=== PATIENT | female | born 1935 | race Caucasian/White ===

== ENCOUNTER → 2016-07-16 | Outpatient (CLI) | payer MEDICARE ==
[2016-07-16 18:37] LABS: ALT 33 U/L (9-52); AST 32 U/L (14-36); Cholesterol 177 mg/dL (<200); HDL Cholesterol 57 mg/dL (40-60); Triglycerides 104 mg/dL (<150)
== END | disposition home or self-care (01) ==
LOC: MMGSC 10:42
PROVIDERS: ATTEND Internal Medicine Interventional Cardiology
DX: E78.2 Mixed hyperlipidemia (principal)
CPT/HCPCS: 36415; 80061; 84450; 84460

== ENCOUNTER → 2016-12-23 | Outpatient (CLI) | payer MEDICARE | END | disposition home or self-care (01) | LOC: MMGSC 15:41 | PROVIDERS: ATTEND Family Medicine | DX: N39.0 Urinary tract infection, site not specified (principal) | CPT/HCPCS: 87086 ==

== ENCOUNTER → 2017-01-01 | Outpatient (CLI) | payer MEDICARE ==
--- NOTE | 2017-01-01 17:04 | XR ---
EXAMINATION TYPE: XR wrist complete LT DATE OF EXAM: 01/01/2017 COMPARISON: NONE HISTORY: Pain TECHNIQUE: 4 views FINDINGS: There is narrowing and spurring at the first carpometacarpal joint. I see no fracture nor d islocation. Metacarpals are intact. IMPRESSION: Osteoarthritis at the base of the thumb. No fracture seen.
== END | disposition home or self-care (01) ==
LOC: RADXRMAIN 16:44
PROVIDERS: ATTEND Family Medicine
DX: M19.032 Primary osteoarthritis, left wrist (principal)

== ENCOUNTER → 2017-01-08 | Outpatient (CLI) | payer MEDICARE | END | disposition home or self-care (01) | LOC: MMGSC 10:02 | PROVIDERS: ATTEND Family Medicine | DX: E03.9 Hypothyroidism, unspecified (principal) | CPT/HCPCS: 36415; 80061; 84439; 84443; 84450; 84460 ==

== ENCOUNTER → 2017-01-08 | Outpatient (CLI) | payer MEDICARE ==
[2017-01-08 19:01] LABS: ALT 33 U/L (9-52); AST 26 U/L (14-36); Cholesterol 156 mg/dL (<200); HDL Cholesterol 45 mg/dL (40-60)
== END | disposition home or self-care (01) ==
LOC: MMGSC 09:50
PROVIDERS: ATTEND Internal Medicine Interventional Cardiology
DX: E78.2 Mixed hyperlipidemia (principal)
CPT/HCPCS: 36415; 80061; 84450; 84460

== ENCOUNTER → 2017-02-27 | Outpatient (CLI) | payer MEDICARE ==
--- NOTE | 2017-02-27 12:43 | CT ---
EXAMINATION TYPE: CT ChestAbdPelvis w con DATE OF EXAM: 02/27/2017 COMPARISON: 05/08/2016 and 11/21/2014 HISTORY: lymphoma CT DLP: 1413 mGycm. Automated Exposure Control for Dose Reduction was Utilized. CONTRAST: CT scan of the thorax, abdomen and pelvis is performed with IV Contrast, patient injected with 80 mL of Visipaque 320. FINDINGS: LUNGS: Solitary right middle lobe 3 mm pulmonary nodule is present on series 4 image 32. This nodule is unchanged from the exam of 7 6:15 AM should be considered benign. Additional 1 mm right middle lob e pulmonary nodule is also visualized on the same image number and stable from the prior exam. This s hould also be considered benign. Few scattered centrilobular blebs are noted from mild centrilobular emphysema. The lungs are grossly clear, there is no concerning parenchymal mass identified. There i s no pleural effusion or pneumothorax seen. The tracheobronchial tree is patent. MEDIASTINUM: Coronary artery calcifications are incidentally noted within the left anterior descendin g and left main coronary artery. There are no greater than 1 cm hilar or mediastinal lymph nodes. N o pericardial effusion is seen. LIVER/GB: Hepatic parenchyma enhances homogeneously. Gallbladder surgically absent. PANCREAS: No significant abnormality is seen. SPLEEN: Focal wedge shaped area of hypoattenuation is seen within the posterior inferior splenic pare nchyma on series 3 image 65 of capsular retraction relating to prior infarct. The spleen is nonenlarg ed but again prominent in size measuring 12.9 cm in craniocaudal dimension. ADRENALS: No significant abnormality is seen. KIDNEYS: No significant abnormality is seen. BOWEL: Few scattered colonic diverticula are seen without pericolonic fat stranding. LYMPH NODES: Few prominent and nonenlarged lymph nodes are seen in the retroperitoneum, similar in si ze to the exam of 11/21/2014 with the largest measuring 7 mm on series 3 image 65 and the second larges t measuring 5 mm on series 3 image 79. OSSEOUS STRUCTURES: No suspicious osseous lesion. Multilevel degenerative change of the thoracolumbar spine. Degenerative changes also seen of the femoral acetabular joints. Sclerotic focus, likely bone island is again present of L3 as well as vertebral body hemangioma of L5. OTHER: Abdominal aorta is of normal course and caliber with minimal calcific atheromatous changes. IMPRESSION: 1. No evidence of adenopathy within the chest, abdomen or pelvis. Few nonenlarged retroperitoneal lym ph nodes measuring up to 7 mm in short axis are unchanged in comparison to exam of 11/21/2014. 2. Unchanged prior splenic infarct. 3. Colonic diverticulosis without evidence of diverticulitis.
== END | disposition home or self-care (01) ==
LOC: RADCTMAIN 10:32
PROVIDERS: ATTEND Internal Medicine Hematology & Oncology
DX: C85.98 Non-Hodgkin lymphoma, unspecified, lymph nodes of multiple sites (principal); K57.30 Diverticulosis of large intestine without perforation or abscess without bleeding; D73.5 Infarction of spleen; Z88.0 Allergy status to penicillin; Z88.1 Allergy status to other antibiotic agents
CPT/HCPCS: 82565; 84520; 71260; 74177; 36415; Q9967

== ENCOUNTER → 2017-03-27 | Outpatient (CLI) | payer MEDICARE ==
[2017-03-27 19:48] LABS: Basophils % (A) 1 %; CH 28.2; CHCM 32.3; Eosinophils # (A) 0.1 k/uL (0-0.7); Eosinophils % (A) 3 %; HCT 39.7 % (34.0-46.0); HDW 2.73; HGB 12.7 gm/dL (11.4-16.0); Luc # (Auto) 0.05; Luc % (Auto) 2; Lymphocytes # (A) 0.5 k/uL (1.0-4.8); Lymphocytes % (A) 16 %; MCH 28.2 pg (25.0-35.0); MCHC 32.1 g/dL (31.0-37.0); MCV 87.8 fL (80.0-100.0); Mean Platelet Volume 7.8; Monocytes # (A) 0.2 k/uL (0-1.0); Monocytes % (A) 6 %; Neutrophils # (A) 2.4 k/uL (1.3-7.7); Neutrophils % (A) 73 %; RBC 4.52 m/uL (3.80-5.40); RDW 14.6 % (11.5-15.5); WBC 3.2 k/uL (3.8-10.6); WBC (Perox) 3.42
[2017-03-27 20:42] LABS: Calcium 10.1 mg/dL (8.4-10.2); Potassium 3.7 mmol/L (3.5-5.1); Total Bilirubin 0.5 mg/dL (0.2-1.3); Total Protein 6.6 g/dL (6.3-8.2)
== END ==
LOC: MMGSC 12:14
PROVIDERS: ATTEND Family Medicine
DX: E55.9 Vitamin D deficiency, unspecified (principal); R53.83 Other fatigue; E03.9 Hypothyroidism, unspecified; R79.89 Other specified abnormal findings of blood chemistry; C85.90 Non-Hodgkin lymphoma, unspecified, unspecified site
CPT/HCPCS: 36415; 80053; 82306; 82607; 84439; 84443; 85025

== ENCOUNTER → 2017-05-16 | Outpatient (CLI) | payer MEDICARE | END | disposition home or self-care (01) | LOC: MMGSC 15:19 | PROVIDERS: ATTEND Family Medicine | DX: N39.0 Urinary tract infection, site not specified (principal) | CPT/HCPCS: 87077; 87086; 87186 ==

== ENCOUNTER → 2017-07-29 | Outpatient (CLI) | payer MEDICARE ==
[2017-07-29 18:29] LABS: Albumin 4.3 g/dL (3.5-5.0); Calcium 10.2 mg/dL (8.4-10.2); Potassium 3.7 mmol/L (3.5-5.1); Total Bilirubin 0.6 mg/dL (0.2-1.3); Total Protein 6.9 g/dL (6.3-8.2)
[2017-08-01 09:11] LABS: Hemoglobin A1C 5.8 % (4.0-6.0)
== END | disposition home or self-care (01) ==
LOC: MMGSC 09:56
PROVIDERS: ATTEND Internal Medicine Interventional Cardiology
DX: E78.2 Mixed hyperlipidemia (principal)
CPT/HCPCS: 80053; 80061

== ENCOUNTER → 2017-07-29 | Outpatient (CLI) | payer MEDICARE ==
[2017-07-29 18:43] LABS: T4, Free (Free Thyroxine) 1.61 ng/dL (0.78-2.19)
== END | disposition home or self-care (01) ==
LOC: MMGSC 09:49
PROVIDERS: ATTEND Family Medicine
DX: E03.9 Hypothyroidism, unspecified (principal)
CPT/HCPCS: 36415; 84439; 84443

== ENCOUNTER → 2017-09-25 | Day surgery (SDC) | payer MEDICARE ==
[2017-09-22 13:34] VITALS: BMI 25.0
[~2017-09-25] MED LIST: ACETAMINOPHEN TAB 325 MG TAB ONE; ACETAMINOPHEN TAB 325 MG TAB PO STA; ALPRAZolam 0.25 MG TAB PO PRN; ALPRAZolam 1 MG TAB PO SCH; ASPIRIN 325 MG TAB PO ONE; CHOLECALCIFEROL 1,000 UNIT TAB PO SCH; ESCITALOPRAM 5 MG TAB PO SCH; FENOFIBRIC ACID 135 MG PO SCH; HEPARIN SODIUM 1,000 UN/ML (10ML VL) ONE; IOPAMIDOL-370 125ML BTL INJ ONE; ISOSORBIDE MONONITRATE ER 60 MG TAB.ER.24H PO SCH; LEVOTHYROXINE 125 MCG TAB PO SCH; LIDOCAINE 2% INJ 20 MG/ML (20 ML MDV) ONE; LIDOCAINE 2% INJ 20 MG/ML SQ ONE; METOPROLOL TARTRATE 25 MG TAB PO SCH; MIDAZOLAM 2 MG/2 ML VIAL IV ONE; MIDAZOLAM 2 MG/2 ML VIAL ONE; NON-FORMULARY DRUG (Aspirin [Adult Low Dose Aspirin Ec] 81 MG) PO SCH; NON-FORMULARY DRUG (Cyanocobalamin (Vitamin B-12) [Vitamin B-12] 1,000 MCG) PO SCH; NON-FORMULARY DRUG (Losartan/Hydrochlorothiazide [Losartan-Hctz 100-25 Mg Tab] 1 TAB) PO SCH; PRAVASTATIN SODIUM 40 MG TAB PO SCH; RX INFO: IV CONTRAST WAS GIVEN 1 EACH MISC MISCELLANE PRN; SODIUM CHLORIDE 0.9% 1,000 ML IV SCH; SODIUM CHLORIDE 0.9% 1,000 ML in EMPTY BAG 1 BAG IV ONE; VERAPAMIL 2.5 MG/ML 2 ML AMP ONE; cloNIDine HCL 0.1 MG TAB PO SCH; fentaNYL (PF) 50 MCG/ML 2 ML AMP IV ONE; fentaNYL (PF) 50 MCG/ML 2 ML AMP ONE
[2017-09-25 07:05] VITALS: RESP 18
[2017-09-25 07:05] LABS: Basophils % (A) 1 %; Eosinophils # (A) 0.1 k/uL (0-0.7); Eosinophils % (A) 3 %; HCT 33.4 % (34.0-46.0); HGB 11.3 gm/dL (11.4-16.0); Lymphocytes # (A) 0.8 k/uL (1.0-4.8); Lymphocytes % (A) 21 %; MCH 28.2 pg (25.0-35.0); MCHC 33.9 g/dL (31.0-37.0); MCV 83.1 fL (80.0-100.0); Mean Platelet Volume 7.5; Monocytes # (A) 0.3 k/uL (0-1.0); Monocytes % (A) 7 %; Neutrophils # (A) 2.7 k/uL (1.3-7.7); Neutrophils % (A) 67 %; Platelet Count 157 k/uL (150-450); RBC 4.02 m/uL (3.80-5.40); RDW 13.2 % (11.5-15.5)
[2017-09-25 07:17] LABS: Calcium 9.8 mg/dL (8.4-10.2); Potassium 3.9 mmol/L (3.5-5.1)
[2017-09-25] MEDS: VERAPAMIL SYRINGE (5 MG/10 ML) INTRAARTER ONE ×2 (07:35→07:47)
[2017-09-25 08:37] VITALS: TEMP 98
--- NOTE | 2017-09-25 08:59 | CC ---
CARDIAC CATHETERIZATION REPORT Mrs. Feliz is a 81-year-old female, known history of hypertension, hyperlipidemia, who has been complaining of chest discomfort and dyspnea on exertion. She has underwent a myocardial perfusion imaging that revealed no evidence of inducible ischemia, but she has persisted in having exertional chest discomfort and exertional dyspnea. In view of that, because of multiple risk factors. Recommendation was made regarding cardiac catheterization. The procedure as well as risks and complications were discussed with the patient who is in full understanding and agreement. PROCEDURE: Patient was brought to cardiac catheterization technologist in a fasting semi-sedated state after receiving fentanyl and Benadryl and achieving moderate conscious sedated state. Using Xylocaine anesthesia and Seldinger technique, a 6-Slovak sheath was introduced in the right radial artery. Selective right and left coronary angiography were performed using 5- Slovak 3.5 bend right and left Sathish catheter. Multiple views of the coronary artery including hemiaxial views were obtained. Following that, catheter and sheaths were removed. Hemostasis was obtained with deployment of an TR band. There was no immediate complication. Patient was returned to her room in stable condition. Of note, the patient received 3500 units of intravenous heparin as well as intra-arterial verapamil. FINDING: FLUOROSCOPY: There was calcification involving the left anterior descending artery, left main and the left circumflex. LEFT MAIN: This is a short, large sized vessel that bifurcated in the left circumflex, left anterior descending artery. Left main coronary artery has no evidence of obstructive coronary artery disease. LEFT ANTERIOR DESCENDING ARTERY: This is a large-sized vessel reaching toward the apex with a wraparound apex segment giving rise to 2 diagonal branch of moderate caliber. The left anterior descending artery has mild intimal disease 10% to 20% without any evidence of high-grade stenosis. LEFT CIRCUMFLEX: This is a dominant vessel large in caliber giving rise to a large proximal obtuse marginal branch. The second obtuse marginal branch is small in caliber. Distally, there is a PDA and a PLV of moderate caliber. The first obtuse marginal branch has mild plaque of 10% to 20% without any evidence of high-grade stenosis. RIGHT CORONARY ARTERY: This is a nondominant vessel that has a mild plaque of 20% proximally. The rest of the vessel has no high-grade stenosis. LEFT VENTRICULOGRAM: Left ventriculogram is not performed. IMPRESSION: Mild triple-vessel coronary artery disease. RECOMMENDATION: In view of finding anatomy, I recommend continuing medical therapy with aggressive coronary risk modification that has been initiated. Those findings and recommendation were discussed with the patient and her family and are in full understanding and agreement. DURATION OF PROCEDURE: 21 minutes. LAILA / BUSHRA: [id number] /
[2017-09-25 13:06] VITALS: BP 137/63; PULSE 65
== END | disposition home or self-care (01) ==
LOC: CATHCVL 06:14
PROVIDERS: ATTEND Internal Medicine Interventional Cardiology
DX: I25.10 Atherosclerotic heart disease of native coronary artery without angina pectoris (principal); E78.2 Mixed hyperlipidemia; I10 Essential (primary) hypertension; C85.90 Non-Hodgkin lymphoma, unspecified, unspecified site; Z79.82 Long term (current) use of aspirin; Z79.899 Other long term (current) drug therapy; Z88.1 Allergy status to other antibiotic agents; Z88.0 Allergy status to penicillin
CPT/HCPCS: 93454; 80048; 85025; C1894; C1769; J2001; J2250; J3010; J1644; Q9967

== ENCOUNTER → 2017-10-08 | Outpatient (CLI) | payer MEDICARE ==
--- NOTE | 2017-10-08 14:50 | MM ---
Reason for exam: screening (asymptomatic). Last mammogram was performed 3 years and 11 months ago. History: Patient is postmenopausal. Family history of breast cancer in maternal aunt and breast cancer in cousin. Physical Findings: A clinical breast exam by your physician is recommended on an annual basis and results should be correlated with mammographic findings. MG 3D Screening Mammo W/Cad Bilateral CC and MLO view(s) were taken. Prior study comparison: November 18, 2013, mammogram, performed at [facility]. October 15, 2012, mammogram, performed at [facility]. The breast tissue is heterogeneously dense. This may lower the sensitivity of mammography. Stable benign calcifications. There is no discrete abnormality. No significant changes when compared with prior studies. ASSESSMENT: Benign, BI-RAD 2 RECOMMENDATION: Routine screening mammogram of both breasts in 1 year.
== END | disposition home or self-care (01) ==
LOC: RADMAMWWP 11:28
PROVIDERS: ATTEND Internal Medicine Hematology & Oncology
DX: Z12.31 Encounter for screening mammogram for malignant neoplasm of breast (principal)
CPT/HCPCS: 77063; 77067

== ENCOUNTER → 2018-02-09 | Outpatient (CLI) | payer MEDICARE ==
[2018-02-09 11:14] LABS: Albumin 3.9 g/dL (3.5-5.0); Calcium 9.9 mg/dL (8.4-10.2); Potassium 4.1 mmol/L (3.5-5.1); Total Bilirubin 0.5 mg/dL (0.2-1.3); Total Protein 6.6 g/dL (6.3-8.2)
== END | disposition home or self-care (01) ==
LOC: LABWHC1 09:15
PROVIDERS: ATTEND Internal Medicine Interventional Cardiology
DX: E78.2 Mixed hyperlipidemia (principal)
CPT/HCPCS: 36415; 80053; 80061

== ENCOUNTER → 2019-05-26 | Outpatient (CLI) | payer MEDICARE ==
--- NOTE | 2019-05-27 11:18 | MM ---
Reason for exam: screening (asymptomatic). Last mammogram was performed 1 year and 8 months ago. History: Patient is postmenopausal and history of other cancer. Family history of breast cancer in maternal aunt and breast cancer in cousin. Took progesterone for 10 years. Physical Findings: A clinical breast exam by your physician is recommended on an annual basis and results should be correlated with mammographic findings. MG 3D Screening Mammo W/Cad Bilateral CC and MLO view(s) were taken. Prior study comparison: October 08, 2017, bilateral MG 3d screening mammo w/cad. November 18, 2013, mammogram, performed at [facility]. The breast tissue is heterogeneously dense. This may lower the sensitivity of mammography. Benign appearing bilateral calcifications. No suspicious abnormality. No significant changes when compared with prior studies. ASSESSMENT: Benign, BI-RAD 2 RECOMMENDATION: Routine screening mammogram of both breasts in 1 year.
== END | disposition home or self-care (01) ==
LOC: RADMAMWWP 14:19
PROVIDERS: ATTEND Internal Medicine Hematology & Oncology
DX: Z12.31 Encounter for screening mammogram for malignant neoplasm of breast (principal)
CPT/HCPCS: 77063; 77067

== ENCOUNTER 2019-12-22 10:12 | Day surgery (SDC) | payer MEDICARE ==
[2019-12-16 13:42] VITALS: BMI 23.3
[~2019-12-22 10:12] MED LIST changes: -ACETAMINOPHEN TAB 325 MG TAB ONE; -ACETAMINOPHEN TAB 325 MG TAB PO STA; +ALPRAZolam 0.5 MG TAB PO PRN; -ALPRAZolam 1 MG TAB PO SCH; -CHOLECALCIFEROL 1,000 UNIT TAB PO SCH; -ESCITALOPRAM 5 MG TAB PO SCH; -FENOFIBRIC ACID 135 MG PO SCH; -HEPARIN SODIUM 1,000 UN/ML (10ML VL) ONE; -IOPAMIDOL-370 125ML BTL INJ ONE; -ISOSORBIDE MONONITRATE ER 60 MG TAB.ER.24H PO SCH; -LEVOTHYROXINE 125 MCG TAB PO SCH; -LIDOCAINE 2% INJ 20 MG/ML (20 ML MDV) ONE; -LIDOCAINE 2% INJ 20 MG/ML SQ ONE; -METOPROLOL TARTRATE 25 MG TAB PO SCH; -MIDAZOLAM 2 MG/2 ML VIAL IV ONE; -MIDAZOLAM 2 MG/2 ML VIAL ONE; +NITROGLYCERIN SL TABS 0.4 MG TAB SUBLINGUAL PRN; -NON-FORMULARY DRUG (Aspirin [Adult Low Dose Aspirin Ec] 81 MG) PO SCH; -NON-FORMULARY DRUG (Cyanocobalamin (Vitamin B-12) [Vitamin B-12] 1,000 MCG) PO SCH; -NON-FORMULARY DRUG (Losartan/Hydrochlorothiazide [Losartan-Hctz 100-25 Mg Tab] 1 TAB) PO SCH; -PRAVASTATIN SODIUM 40 MG TAB PO SCH; -RX INFO: IV CONTRAST WAS GIVEN 1 EACH MISC MISCELLANE PRN; -SODIUM CHLORIDE 0.9% 1,000 ML IV SCH; -VERAPAMIL 2.5 MG/ML 2 ML AMP ONE; -cloNIDine HCL 0.1 MG TAB PO SCH; -fentaNYL (PF) 50 MCG/ML 2 ML AMP IV ONE; -fentaNYL (PF) 50 MCG/ML 2 ML AMP ONE
[2019-12-22] MEDS ORDERED: ASPIRIN 81 MG ONE (10:25)
[2019-12-22] MEDS ORDERED: SODIUM CHLORIDE 0.9% 1,000 ML IV ONE (10:44)
[2019-12-22 10:46] LABS: Glucose,Whole Blood 120 mg/dL (75-99)
[2019-12-22] MEDS ORDERED: fentaNYL (PF) 50 MCG/ML 2 ML AMP ONE (11:36)
[2019-12-22] MEDS ORDERED: HEPARIN SODIUM 1,000 UN/ML (10ML VL) ONE (11:36)
[2019-12-22] MEDS ORDERED: VERAPAMIL 2.5 MG/ML 2 ML AMP ONE (11:36)
[2019-12-22] MEDS ORDERED: LIDOCAINE 1% INJ 10MG/ML (20 ML MDV) ONE (11:36)
[2019-12-22] MEDS ORDERED: fentaNYL (PF) 50 MCG/ML 2 ML AMP IV ONE (11:45)
[2019-12-22] MEDS ORDERED: LIDOCAINE 1% INJ 10MG/ML (20 ML MDV) SQ ONE (11:51)
[2019-12-22] MEDS ORDERED: MIDAZOLAM 2 MG/2 ML VIAL IVP ONE (11:52)
[2019-12-22] MEDS ORDERED: CLOPIDOGREL 75 MG TAB ONE (12:08)
[2019-12-22] MEDS ORDERED: BIVALIRUDIN BOLUS 250 MG/50 ML IV ONE (12:15)
[2019-12-22] MEDS ORDERED: BIVALIRUDIN 250 MG in SODIUM CHLORIDE 0.9% 50 ML IV ONE (12:15)
[2019-12-22] MEDS ORDERED: CLOPIDOGREL 75 MG TAB PO ONE (12:16)
[2019-12-22] MEDS ORDERED: NITROGLYCERIN 1000MCG/10ML SYRINGE INTRACORON ONE (12:17)
[2019-12-22] MEDS ORDERED: IOPAMIDOL-370 100ML BTL INJ ONE ×2 (12:17→12:31)
[2019-12-22] MEDS ORDERED: RX INFO: IV CONTRAST WAS GIVEN 1 EACH MISC MISCELLANE PRN (12:47)
[2019-12-22] MEDS ORDERED: NITROGLYCERIN SL TABS 0.4 MG TAB SUBLINGUAL PRN (12:47)
[2019-12-22] MEDS ORDERED: MAG HYDROX/AL HYDROX/SIMETH 30 ML CUP PO PRN (12:47)
[2019-12-22] MEDS ORDERED: ATROPINE SULFATE 0.1 MG/ML 10ML SYRINGE IV PRN (12:47)
[2019-12-22] MEDS ORDERED: ZOLPIDEM 5 MG TAB PO PRN (12:47)
[2019-12-22] MEDS ORDERED: SODIUM CHLORIDE 0.9% 1,000 ML IV SCH (13:00)
[2019-12-22] MEDS: CARBIDOPA-LEVODOPA ER 50-200MG 1 EACH TABLET.ER PO SCH (20:07)
--- NOTE | 2019-12-22 20:15 | CC ---
CARDIAC CATHETERIZATION REPORT Mrs. Feliz is an 84-year-old female with known history of hypertension, hyperlipidemia, diabetes mellitus and a history of coronary artery disease who has been complaining of progressive symptoms of dyspnea and fatigue and had abnormal myocardial perfusion imaging. In view of that, recommendation was made regarding cardiac catheterization. The procedure, its risks and complications were discussed with the patient, who was in full understanding and agreement. PROCEDURE DESCRIPTION: Patient was brought to the sleep lab technician in a fasting, semi-sedated state after receiving fentanyl and Benadryl and achieving a moderate conscious sedated state. Using Xylocaine anesthesia and Seldinger technique, a 6-Greek sheath was introduced in the right radial artery. Selective right and left coronary angiography was performed using 5-Greek 4 bend right Sathish catheter and 3-1/2 bend left Sathish catheter. Multiple views were taken of the coronary arteries, including hemiaxial views. Following that, angioplasty and stenting were performed. Following that, a 5-Greek tight pigtail catheter was introduced into the left ventricle and pressures were calculated. Following that, catheters and sheaths were removed. Hemostasis was obtained with deployment of a TR band. There was no immediate complication. Patient was returned to her room in stable condition. FINDINGS: FLUOROSCOPY: There was significant calcification involving the left anterior descending artery. LEFT MAIN: This is a large-sized vessel bifurcating into left circumflex and left anterior descending artery. Left main coronary artery has no evidence of high-grade stenosis. LEFT ANTERIOR DESCENDING ARTERY: This is a large-sized vessel reaching toward the apex with a wrap around the apex segment giving rise to 2 diagonal branches. The vessel is calcified in the proximal and mid segments. Prior to the takeoff of the second diagonal branch, there is a 99% stenosis with slow flow in the distal vessel. LEFT CIRCUMFLEX: This is a dominant vessel, large in caliber, giving rise to 2 obtuse marginal branches and distally bifurcating into PDA and posterolateral segment and branches. The first obtuse marginal branch has a 20% to 30% plaque. The rest of the vessel has no high-grade stenosis. RIGHT CORONARY ARTERY: This is a small nondominant vessel that has no evidence of high- grade stenosis. LEFT VENTRICULOGRAM: Left ventriculogram was not performed. HEMODYNAMICS: There was no gradient across the aortic valve. The left ventricular end- diastolic pressure was 12-14 mmHg. CONCLUSION: 1. Calcified LAD. 2. Significant stenosis in the mid LAD. 3. Mild disease in the left circumflex. RECOMMENDATION: Those findings show significant progression compared with the images obtained in 2018. In view of that, I have recommended proceeding with angioplasty and stenting. The procedure, its risks and complications were discussed with the patient, who is in full understanding and agreement. MMBINHL / IJN: [id number] /
--- NOTE | 2019-12-22 20:21 | PTCA ---
PERCUTANEOUSTRANS CORORONARY ANGIOGRAPHY Mrs. Feliz is an 84-year-old female with a known history of coronary artery disease who presented with progressive dyspnea and abnormal myocardial perfusion imaging, underwent cardiac catheterization and was found to have critical stenosis involving the mid LAD. In view of that, recommendation was made regarding angioplasty and stenting. The procedure, its risks and complications were discussed with the patient, who was in full understanding and agreement. PROCEDURE DESCRIPTION: A 6-Chinese EBU 3.75 guiding catheter was introduced into the system. After cannulated the left main, a 0.014 balanced medium weight J-wire was advanced across the lesion and positioned distally. Subsequently a 2.25 x 12 mm NC Trek balloon was advanced and one inflation at 8 atmospheres was done. Following that, the balloon was removed and a 2.75 x 15 mm Xience Samanta stent was deployed and post-dilated at 16 atmospheres. After the last inflation, after appropriate wait, the balloon and the guidewire were withdrawn back into the guiding catheter. Images were obtained and repeated. Those images reveal stable successful stenting. At that point, the guiding catheter, the balloon and the guidewire were removed and a left ventricular end-diastolic pressure was calculated. Subsequently the catheter was removed. Sheath was removed. Hemostasis was obtained with deployment of a TR band. There was no immediate complication. The patient was returned to her room in stable condition. Of note, the patient had chest discomfort and EKG changes with the inflation that resolved at the end of the procedure. She received Angiomax per protocol as well as oral loading dose of clopidogrel. RESULT: Successful stenting of the mid LAD with reduction of stenosis from 99% to 0%. RECOMMENDATIONS: Patient will be continued on aspirin, Plavix and statin. The importance of dual antiplatelet treatment was discussed with the patient and her family, and they are in full understanding and agreement. Duration of the sedation was 41 minutes. MMODL / IJN: [id number] /
--- NOTE | 2019-12-22 20:24 | LTR ---
December 22, 2019 To: Dr. Alegre Re: Audra Feliz (39) Dear Dr. Vogel: I had the pleasure of performing cardiac catheterization on Mrs. Feliz at [facility] on December 21, and full copy of the procedure note will be forwarded to you. In brief, she was found to have critical stenosis involving the mid LAD and she underwent successful stenting of that vessel using a drug-eluting stent. I am hopeful that this procedure will stabilize her status. Thank you again for allowing me to participate in her care. Please feel free to call with any questions. Sincerely yours, Erick Merrill M.D. LAILA / BUSHRA: [id number] /
[2019-12-22] MEDS ORDERED: amLODIPine 2.5 MG TAB PO SCH (21:00)
[2019-12-22] MEDS ORDERED: ATORVASTATIN 40 MG TAB PO SCH (21:00)
[2019-12-23] MEDS ORDERED: LEVOTHYROXINE 100 MCG TAB PO SCH (06:30)
[2019-12-23 07:46] VITALS: BP 122/74; PULSE 90; RESP 16; TEMP 98
[2019-12-23] MEDS: CARBIDOPA-LEVODOPA ER 50-200MG 1 EACH TABLET.ER PO SCH (07:47)
[2019-12-23 07:59] LABS: Calcium 9.3 mg/dL (8.4-10.2)
[2019-12-23] MEDS ORDERED: LOSARTAN-HCTZ 50-12.5 MG 1 EACH TAB PO SCH (09:00)
[2019-12-23] MEDS ORDERED: DULoxetine HCL 60 MG CAPSULE.DR PO SCH (09:00)
[2019-12-23] MEDS ORDERED: ASPIRIN 81 MG PO SCH (09:00)
[2019-12-23] MEDS ORDERED: METOPROLOL TARTRATE 25 MG TAB PO SCH (09:00)
--- NOTE | 2019-12-23 09:19 | PN ---
PROGRESS NOTE Mrs. Feliz is an 84-year-old female with a history of hypertension, hyperlipidemia, history of coronary artery disease who presented with symptoms of progressive dyspnea, had an abnormal myocardial perfusion imaging, underwent cardiac catheterization, was found to have critical stenosis in the mid LAD and underwent successful stenting of that vessel. She is doing well this morning. She denies any chest pain, her breathing has been stable. She denies any dizziness or palpitation. She denies any nausea. She continues on aspirin once a day, amlodipine 2.5 mg daily, Lipitor 40 mg daily, Sinemet, Plavix 75 mg daily, losartan ACT 100-25 mg daily, metoprolol tartrate 25 mg daily. PHYSICAL EXAMINATION: Blood pressure 139/60 with a heart rate in the 80s. LUNGS: Clear. HEART: Regular rate and rhythm, S1, S2. No S3. No rub with a systolic ejection murmur heard at the base, no diastolic murmur. ABDOMEN: Soft, nontender. EXTREMITIES: No edema, right radial pulse intact. EKG revealed no acute changes. IMPRESSION: 1. Status post stenting of the left anterior descending artery. 2. Hypertension. 3. Hyperlipidemia. RECOMMENDATION: Patient will be discharged home today and followed as an outpatient. MMODL / IJN: [id number] /
[2019-12-23] MEDS ORDERED: CLOPIDOGREL 75 MG TAB PO SCH (12:00)
== END 2019-12-23 08:40 | disposition home or self-care (01) ==
LOC: CATHCVL 10:12 → 3NCARDOBS 12:29 → CATHCVL 12-23 08:40
PROVIDERS: ATTEND Internal Medicine Interventional Cardiology
DX: I25.10 Atherosclerotic heart disease of native coronary artery without angina pectoris (principal); I12.9 Hypertensive chronic kidney disease with stage 1 through stage 4 chronic kidney disease, or unspecified chronic kidney disease; E11.22 Type 2 diabetes mellitus with diabetic chronic kidney disease; N18.9 Chronic kidney disease, unspecified; G47.33 Obstructive sleep apnea (adult) (pediatric); E78.2 Mixed hyperlipidemia; E89.0 Postprocedural hypothyroidism; Z79.82 Long term (current) use of aspirin; Z79.02 Long term (current) use of antithrombotics/antiplatelets; Z79.899 Other long term (current) drug therapy; Z88.0 Allergy status to penicillin; Z88.1 Allergy status to other antibiotic agents; Z90.49 Acquired absence of other specified parts of digestive tract; Z90.710 Acquired absence of both cervix and uterus; Z87.891 Personal history of nicotine dependence
CPT/HCPCS: 93458; 85347; 80048; C9600; C1769 ×3; C1887; C1725; C1874; C1894; J2250; J2001; J3010; J0583; Q9967

== ENCOUNTER 2020-01-03 10:27 | Observation (INO) | payer MEDICARE ==
[2020-01-03] MEDS ORDERED: MORPHINE SULFATE 4 MG/ML SYRINGE IM STA (10:53)
[2020-01-03] MEDS ORDERED: LIDOCAINE 5% PATCH TOPICAL STA (10:53)
--- NOTE | 2020-01-03 10:55 | ED ---
General Adult HPI - General Chief complaint: Back Pain/Injury Stated complaint: frequent falls, back pain Time Seen by Provider: 01/03/20 10:42 Source: patient Mode of arrival: ambulatory Limitations: no limitations - History of Present Illness Initial comments: Dictation was produced using Plink dictation software. please excuse any grammatical, word or spelling errors. This patient was cared for during a federal and state declared state of emergency secondary to Covid 19 Chief Complaint: 84-year-old female past medical history of sciatica presents with back pain History of Present Illness: Is 84-year-old female she has past medical history of sciatica. Patient states that over the last couple days she's been having worsening back pain. Patient has any fever. Denies any saddle anesthesia. No stool or bowel incontinence or retention. Patient has been trying to manage her symptoms with [id number] Tylenol. She states her symptoms haven't really been improving. States that the pain is sharp and to her lower back bilaterally and radiates down bilateral lower extremities. States is typical of her sciatica however sciatica is not usually this severe and longer lasting. The ROS documented in this emergency department record has been reviewed and confirmed by me. Those systems with pertinent positive or negative responses have been documented in the HPI. All other systems are other negative and/or noncontributory. PHYSICAL EXAM: General Impression: Alert and oriented x3, not in acute distress HEENT: Normocephalic atraumatic, extra-ocular movements intact, pupils equal and reactive to light bilaterally, mucous membranes moist. Cardiovascular: Heart regular rate and rhythm Chest: Able to complete full sentences, no retractions, no tachypnea Abdomen: abdomen soft, non-tender, non-distended, no organomegaly Musculoskeletal: Pulses present and equal in all extremities, no peripheral edema, positive straight leg test bilaterally Motor: no focal deficits noted Neurological: CN II-XII grossly intact, no focal motor or sensory deficits noted Skin: Intact with no visualized rashes Psych: Normal affect and mood ED course: 84-year-old female presents with atraumatic back pain. vital signs upon arrival are within acceptable limits.Urinalysis is obtained showing phthisis suggest urinary tract infection. Patient has multiple drug ALLERGIES however she reports that she tolerates ciprofloxacin. Computed tomography scan of the lumbar spine shows significant multi-degenerative disc disease. There is also some central stenosis. Patient given some IM analgesia with improvement of symptoms. Patient given antibiotics, oral analgesics and referral to back specialist. Patient family member are agreeable to disposition. - Related Data Home Medications Medication Instructions Recorded Confirmed ALPRAZolam [Xanax] 1 mg PO HS 01/03/15 12/16/19 Losartan/Hydrochlorothiazide 1 tab PO DAILY 01/03/15 12/22/19 [Losartan-Hctz 100-25 mg Tab] Aspirin [Adult Low Dose Aspirin EC] 81 mg PO QAM 09/22/17 12/22/19 Metoprolol Tartrate [Lopressor] 25 mg PO QAM 09/22/17 12/22/19 Carbidopa-Levodopa ER 50-200Mg 1 each PO BID 12/16/19 12/22/19 [Sinemet CR 50-200 mg] DULoxetine HCL [Cymbalta] 60 mg PO DAILY 12/16/19 12/22/19 Levothyroxine Sodium 100 mcg PO DAILY 12/16/19 12/22/19 Turmeric Root Extract [Turmeric] 1,500 mg PO DAILY 12/16/19 12/22/19 Vitamin B & C 1 tab PO DAILY 12/16/19 12/22/19 amLODIPine BESYLATE [Norvasc] 2.5 mg PO HS 12/16/19 12/22/19 Atorvastatin [Lipitor] 40 mg PO HS 12/22/19 12/22/19 Previous Rx's Medication Instructions Recorded Clopidogrel [Plavix] 75 mg PO DAILY #90 tab 12/23/19 Nitroglycerin Sl Tabs [Nitrostat] 0.4 mg SUBLINGUAL Q5M PRN #25 tab 12/23/19 Ciprofloxacin/Ciprofloxa HCl 500 mg PO Q24HR 3 Days #3 tab 01/03/20 [Ciprofloxacin ER] HYDROcodone/APAP 5-325MG [Madison 1 tab PO Q6HR PRN 3 Days #12 tab 01/03/20 5-325] Allergies Allergy/AdvReac Type Severity Reaction Status Date / Time cephalexin monohydrate Allergy Unknown Verified 01/03/20 10:27 [From Keflex] Childhood Penicillins Allergy Rash/Hives Verified 01/03/20 10:27 amlodipine besylate AdvReac Intermediate tremors Verified 01/03/20 10:27 [From Norvasc] neomycin AdvReac exacerbates Verified 01/03/20 10:27 whatever skin condition using for Review of Systems ROS Statement: Those systems with pertinent positive or pertinent negative responses have been documented in the HPI. ROS Other: All systems not noted in ROS Statement are negative. 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 Urinary I ncontinence, frequent UTI's, Neuropathy in bilateral hands and feet, bilateral Sciatica, more int he right, Raynauds, CPAP use. History of Any Multi-Drug Resistant Organisms: None Reported Past Surgical History: Appendectomy, Cholecystectomy, Hysterectomy, Orthopedic Surgery Additional Past Surgical History / Comment(s): PARTIAL THYROIDECTOMY, Mediport placement/removal, bilateral Carpal Tunnel Surgery. 12/22/[address] to LAD by Dr Merrill Past Anesthesia/Blood Transfusion Reactions: No Reported Reaction Past Psychological History: Anxiety, Depression Smoking Status: Never smoker Past Alcohol Use History: Rare Past Drug Use History: None Reported - Past Family History Father Family Medical History: Cancer Additional Family Medical History / Comment(s): HEAVY SMOKER AND WAS A INSPECTOR PENETRANT, FROM LUNG CANCER. Mother Family Medical History: Diabetes Mellitus Brother(s) Family Medical History: Cancer Additional Family Medical History / Comment(s): Cerebral hemorrhage, Leukemia. Daughter(s) Family Medical History: Cancer Additional Family Medical History / Comment(s): Uterine Cancer. General Exam Limitations: no limitations Course Vital Signs 01/03/20 01/03/20 10:27 11:32 Temperature 98.0 F Pulse Rate 71 73 Respiratory 16 18 Rate Blood Pressure 158/77 141/74 O2 Sat by Pulse 96 Oximetry Medical Decision Making - Lab Data Lab Results 01/03/20 Range/Units 11:31 Urine Color Yellow Urine Appearance Slightly Cloudy H (Clear) Urine pH 7.0 (5.0-8.0) Ur Specific Arthur 1.005 (1.001-1.035) Urine Protein Negative (Negative) Urine Glucose (UA) Negative (Negative) Urine Ketones Negative (Negative) Urine Blood Negative (Negative) Urine Nitrite Positive H (Negative) Urine Bilirubin Negative (Negative) Urine Urobilinogen <2.0 (<2.0) mg/dL Ur Leukocyte Esterase Large (Negative) Urine RBC 1 (0-5) /hpf Urine WBC 24 H (0-5) /hpf Ur Squamous Epith Cells 2 (0-4) /hpf Urine Bacteria Occasional H (None) /hpf Hyaline Casts 10 H (0-2) /lpf Urine Mucus Rare H (None) /hpf Disposition Clinical Impression: Back pain Disposition: HOME SELF-CARE Condition: Good Instructions (If sedation given, give patient instructions): Acute Low Back Pain (ED) Prescriptions: Ciprofloxacin/Ciprofloxa HCl [Ciprofloxacin ER] 500 mg PO Q24HR 3 Days #3 tab HYDROcodone/APAP 5-325MG [Madison 5-325] 1 tab PO Q6HR PRN 3 Days #12 tab PRN Reason: Severe Pain Is patient prescribed a controlled substance at d/c from ED?: Yes If prescribed controlled substance>3 days was MAPS reviewed?: Prescribed <3 Days Referrals: Genevieve Alegre MD [Primary Care Provider] - 1-2 days Fay Bundy DO [Doctor of Osteopathic Medicine] - 1-2 days Time of Disposition: 12:46
[2020-01-03 11:47] LABS: Appearance,Urine Slightly Cloudy (Clear); Color,Urine Yellow
[2020-01-03 11:51] LABS: Bacteria,Urine Occasional /hpf; Hyaline Casts,Urine 10 /lpf (0-2); Mucus,Urine Rare /hpf; RBC,Urine 1 /hpf (0-5); Squamous Epithelial Cell,Urine 2 /hpf (0-4); WBC,Urine 24 /hpf (0-5)
[2020-01-03 11:55] LABS: Bilirubin,Urine Negative (Negative); Blood,Urine Negative (Negative); Glucose,Urine (UA) Negative (Negative); Ketones,Urine Negative (Negative); Nitrite,Urine Positive (Negative); Protein,Urine Negative (Negative); Specific Gravity,Urine 1.005 (1.001-1.035); Urobilinogen,Urine <2.0 mg/dL (<2.0)
[2020-01-03 11:56] LABS: Leukocyte Esterase,Urine Large (Negative)
[2020-01-03] MEDS ORDERED: HYDROmorphone 0.5 MG/0.5 ML SYRINGE IM STA (12:02)
--- NOTE | 2020-01-03 12:11 | CT ---
EXAMINATION TYPE: CT lumbar spine wo con DATE OF EXAM: 01/03/2020 COMPARISON: None HISTORY: Low back pain, history of sciatica. CT DLP: [address] of the lumbar spine was performed. Bone and soft tissue window settings are submitted as well as coronal and sagittal reconstructions. There is bony osteopenia noted. L1-L2: Normal disc space height. No disc herniation protrusion or central stenosis. No facet joint arthropathy. No evidence for foraminal encroachment. L2-L3: Severe degenerative disc space narrowing and vacuum disc. Posterior disc bulge with hypertroph y of the ligamentum flavum and facet joint arthropathy resulting in mild central stenosis. L3-L4: Severe degenerative disc space narrowing. Moderate circumferential disc bulge greatest posteri jena. Hypertrophy ligamentum flavum and severe facet joint arthropathy resulting in severe central s tenosis. L4-L5: Severe degenerative disc space narrowing. Moderate circumferential disc bulge greatest posteri jena. Hypertrophy ligamentum flavum and severe facet joint arthropathy resulting in severe central s tenosis. 3 mm grade 1 anterolisthesis L4 and L5. L5-S1: Moderate degenerative disc space narrowing. Broad-based posterocentral disc herniation with ef facement ventral thecal sac and bilateral lateral recess stenosis. Bilateral left greater than right recess stenosis. No paraspinal masses are identified. Lumbar segments are free if fracture. IMPRESSION: 1. Multilevel degenerative disc disease and central stenosis as outlined above.
--- NOTE | 2020-01-03 13:19 | ED ---
Medical Decision Making - Medical Decision Making Chart review was performed. On December 21 patient had cardiac cath with successful stenting of the mid LAD.Laboratory evaluation obtained. CBC shows findings within acceptable limits. Coag panel is unremarkable. Metabolic panel shows mild hyponatremia 1:30.. Rest of labs unremarkable. Urinalysis was mentioned earlier. Patient given aspirin. Patient will be admitted for serial troponins and cardiology consultation. Discussed with Dr. Perez was willing to accept patients care. Patient reevaluated at bedside and found to be stable medical condition. Patient given a dose of Levaquin for urinary tract infection. - Lab Data Result diagrams: 01/03/20 13:22 01/03/20 13:22 Lab Results 01/03/20 01/03/20 01/03/20 Range/Units 11:31 13:22 13:22 WBC 3.6 L (3.8-10.6) k/uL RBC 4.41 (3.80-5.40) m/uL Hgb 12.7 (11.4-16.0) gm/dL Hct 37.9 (34.0-46.0) % MCV 85.9 (80.0-100.0) fL MCH 28.7 (25.0-35.0) pg MCHC 33.4 (31.0-37.0) g/dL RDW 12.9 (11.5-15.5) % Plt Count 190 (150-450) k/uL Neutrophils % 63 % Lymphocytes % 24 % Monocytes % 7 % Eosinophils % 3 % Basophils % 1 % Neutrophils # 2.3 (1.3-7.7) k/uL Lymphocytes # 0.9 L (1.0-4.8) k/uL Monocytes # 0.3 (0-1.0) k/uL Eosinophils # 0.1 (0-0.7) k/uL Basophils # 0.0 (0-0.2) k/uL PT 10.5 (9.0-12.0) sec INR 1.0 (<1.2) APTT 24.7 (22.0-30.0) sec Sodium (137-145) mmol/L Potassium (3.5-5.1) mmol/L Chloride (98-107) mmol/L Carbon Dioxide (22-30) mmol/L Anion Gap mmol/L BUN (7-17) mg/dL Creatinine (0.52-1.04) mg/dL Est GFR (CKD-EPI)AfAm (>60 ml/min/1.73 sqM) Est GFR (CKD-EPI)NonAf (>60 ml/min/1.73 sqM) Glucose (74-99) mg/dL Calcium (8.4-10.2) mg/dL CK-MB (CK-2) (0.0-2.4) ng/mL Troponin I (0.000-0.034) ng/mL Urine Color Yellow Urine Appearance Slightly Cloudy H (Clear) Urine pH 7.0 (5.0-8.0) Ur Specific [place] 1.005 (1.001-1.035) Urine Protein Negative (Negative) Urine Glucose (UA) Negative (Negative) Urine Ketones Negative (Negative) Urine Blood Negative (Negative) Urine Nitrite Positive H (Negative) Urine Bilirubin Negative (Negative) Urine Urobilinogen <2.0 (<2.0) mg/dL Ur Leukocyte Esterase Large (Negative) Urine RBC 1 (0-5) /hpf Urine WBC 24 H (0-5) /hpf Ur Squamous Epith Cells 2 (0-4) /hpf Urine Bacteria Occasional H (None) /hpf Hyaline Casts 10 H (0-2) /lpf Urine Mucus Rare H (None) /hpf 01/03/20 01/03/20 Range/Units 13:22 13:22 WBC (3.8-10.6) k/uL RBC (3.80-5.40) m/uL Hgb (11.4-16.0) gm/dL Hct (34.0-46.0) % MCV (80.0-100.0) fL MCH (25.0-35.0) pg MCHC (31.0-37.0) g/dL RDW (11.5-15.5) % Plt Count (150-450) k/uL Neutrophils % % Lymphocytes % % Monocytes % % Eosinophils % % Basophils % % Neutrophils # (1.3-7.7) k/uL Lymphocytes # (1.0-4.8) k/uL Monocytes # (0-1.0) k/uL Eosinophils # (0-0.7) k/uL Basophils # (0-0.2) k/uL PT (9.0-12.0) sec INR (<1.2) APTT (22.0-30.0) sec Sodium 130 L (137-145) mmol/L Potassium 4.0 (3.5-5.1) mmol/L Chloride 95 L (98-107) mmol/L Carbon Dioxide 29 (22-30) mmol/L Anion Gap 6 mmol/L BUN 19 H (7-17) mg/dL Creatinine 0.84 (0.52-1.04) mg/dL Est GFR (CKD-EPI)AfAm 75 (>60 ml/min/1.73 sqM) Est GFR (CKD-EPI)NonAf 65 (>60 ml/min/1.73 sqM) Glucose 118 H (74-99) mg/dL Calcium 9.1 (8.4-10.2) mg/dL CK-MB (CK-2) 1.2 (0.0-2.4) ng/mL Troponin I <0.012 (0.000-0.034) ng/mL Urine Color Urine Appearance (Clear) Urine pH (5.0-8.0) Ur Specific [place] (1.001-1.035) Urine Protein (Negative) Urine Glucose (UA) (Negative) Urine Ketones (Negative) Urine Blood (Negative) Urine Nitrite (Negative) Urine Bilirubin (Negative) Urine Urobilinogen (<2.0) mg/dL Ur Leukocyte Esterase (Negative) Urine RBC (0-5) /hpf Urine WBC (0-5) /hpf Ur Squamous Epith Cells (0-4) /hpf Urine Bacteria (None) /hpf Hyaline Casts (0-2) /lpf Urine Mucus (None) /hpf Disposition Clinical Impression: Back pain, Chest pain Disposition: ADMITTED IP TO THIS HOSP Condition: Fair Prescriptions: Ciprofloxacin/Ciprofloxa HCl [Ciprofloxacin ER] 500 mg PO Q24HR 3 Days #3 tab HYDROcodone/APAP 5-325MG [[place] 5-325] 1 tab PO Q6HR PRN 3 Days #12 tab PRN Reason: Severe Pain Referrals: Fay Bundy DO [Doctor of Osteopathic Medicine] - 1-2 days Genevieve Alegre MD [Primary Care Provider] - 1-2 days Decision Time: 14:21
[2020-01-03] MEDS ORDERED: LEVOFLOXACIN 750 MG TAB PO STA (13:23)
[2020-01-03 13:41] LABS: Basophils % (A) 1 %; Eosinophils # (A) 0.1 k/uL (0-0.7); Eosinophils % (A) 3 %; HCT 37.9 % (34.0-46.0); HGB 12.7 gm/dL (11.4-16.0); Lymphocytes # (A) 0.9 k/uL (1.0-4.8); Lymphocytes % (A) 24 %; MCH 28.7 pg (25.0-35.0); MCHC 33.4 g/dL (31.0-37.0); MCV 85.9 fL (80.0-100.0); Mean Platelet Volume 6.6; Monocytes # (A) 0.3 k/uL (0-1.0); Monocytes % (A) 7 %; Neutrophils # (A) 2.3 k/uL (1.3-7.7); Neutrophils % (A) 63 %; Platelet Count 190 k/uL (150-450); RBC 4.41 m/uL (3.80-5.40); RDW 12.9 % (11.5-15.5); WBC 3.6 k/uL (3.8-10.6)
[2020-01-03 13:49] LABS: Calcium 9.1 mg/dL (8.4-10.2)
[2020-01-03 13:52] LABS: Partial Thromboplastin Time 24.7 sec (22.0-30.0); Prothrombin Time 10.5 sec (9.0-12.0)
[2020-01-03] MEDS ORDERED: ASPIRIN 81 MG PO STA (14:07)
[2020-01-03 14:12] LABS: Creatine Kinase MB 1.2 ng/mL (0.0-2.4); Troponin I <0.012 ng/mL (0.000-0.034)
[2020-01-03] MEDS ORDERED: NITROGLYCERIN SL TABS 0.4 MG TAB SUBLINGUAL PRN (14:21)
[2020-01-03] MEDS ORDERED: NALOXONE 0.4 MG/ML 1 ML VIAL IV PRN (14:25)
[2020-01-03] MEDS ORDERED: ACETAMINOPHEN TAB 325 MG TAB PO PRN (14:25)
[2020-01-03] MEDS ORDERED: ONDANSETRON 4 MG/2 ML VIAL IVP PRN (14:25)
[2020-01-03] MEDS ORDERED: DOCUSATE 100 MG CAP PO PRN (14:25)
--- NOTE | 2020-01-03 14:53 | XR ---
EXAMINATION TYPE: XR chest 1V portable DATE OF EXAM: 01/03/2020 CLINICAL HISTORY: Chest pain TECHNIQUE: Upright portable view of the chest obtained COMPARISON: 06/18/2014 chest radiograph FINDINGS: Low lung volumes. The cardiomediastinal silhouette is within normal limits for size. Pulmo nary vasculature is somewhat accentuated. There is no focal air space opacity, pleural effusion, or p neumothorax seen. The osseous structures are intact. IMPRESSION: Right hilar lung markings likely eventrated due to low lung volumes. No acute pulmonary p rocess.
--- NOTE | 2020-01-03 14:54 | P.HPIM ---
History of Present Illness H&P Date: 01/03/20 Chief Complaint: back pain, chest pain 84 year old woman with history of CAD s/p recent PCI to mid LAD, HTN/HLD, sciatica presented for back pain and chest pain. Patient initially presented for back pain, and was evaluated in the ER, then improved after receiving IM dilaudid and a lidocaine patch. She was going to be discharged home, but then developed an episode of substernal chest pain similar in nature to prior chest pain episodes, therefore ER provider requested observation admission to r/o ACS. At the time of my evaluation, the chest pain had subsided, and patient's back pain was significantly improved. All Systems reviewed and pertinent positives and negatives noted in HPI, all other symptoms are negative In the ER patient was afebrile, 147/71, heart rate 62, 94% on room air. CBC was unremarkable. Chemistries remarkable for hyponatremia to 130. UA was slightly cloudy, positive nitrites, 24 WBCs, occasional bacteria, [address] showed multiple level degenerative disc disease. Chest x-ray appears clear without any acute infiltrate. 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 Urinary Incontinence, frequent UTI's, Neuropathy in bilateral hands and feet, bilateral Sciatica, more int he right, Raynauds, CPAP use. History of Any Multi-Drug Resistant Organisms: None Reported Past Surgical History: Appendectomy, Cholecystectomy, Hysterectomy, Orthopedic Surgery Additional Past Surgical History / Comment(s): PARTIAL THYROIDECTOMY, Mediport placement/removal, bilateral Carpal Tunnel Surgery. 12/22/19 Stent to LAD by Dr Merrill Past Anesthesia/Blood Transfusion Reactions: No Reported Reaction Past Psychological History: Anxiety, Depression Smoking Status: Never smoker Past Alcohol Use History: Rare Past Drug Use History: None Reported - Past Family History Father Family Medical History: Cancer Additional Family Medical History / Comment(s): HEAVY SMOKER AND WAS A RN CLINICAL APPEALS, FROM LUNG CANCER. Mother Family Medical History: Diabetes Mellitus Brother(s) Family Medical History: Cancer Additional Family Medical History / Comment(s): Cerebral hemorrhage, Leukemia. Daughter(s) Family Medical History: Cancer Additional Family Medical History / Comment(s): Uterine Cancer. Medications and Allergies Home Medications Medication Instructions Recorded Confirmed Type ALPRAZolam [Xanax] 1 mg PO HS 01/03/15 12/16/19 History Losartan/Hydrochlorothiazide 1 tab PO DAILY 01/03/15 12/22/19 History [Losartan-Hctz 100-25 mg Tab] Aspirin [Adult Low Dose Aspirin EC] 81 mg PO QAM 09/22/17 12/22/19 History Metoprolol Tartrate [Lopressor] 25 mg PO QAM 09/22/17 12/22/19 History Carbidopa-Levodopa ER 50-200Mg 1 each PO BID 12/16/19 12/22/19 History [Sinemet CR 50-200 mg] DULoxetine HCL [Cymbalta] 60 mg PO DAILY 12/16/19 12/22/19 History Levothyroxine Sodium 100 mcg PO DAILY 12/16/19 12/22/19 History Turmeric Root Extract [Turmeric] 1,500 mg PO DAILY 12/16/19 12/22/19 History Vitamin B & C 1 tab PO DAILY 12/16/19 12/22/19 History amLODIPine BESYLATE [Norvasc] 2.5 mg PO HS 12/16/19 12/22/19 History Atorvastatin [Lipitor] 40 mg PO HS 12/22/19 12/22/19 History Clopidogrel [Plavix] 75 mg PO DAILY #90 tab 12/23/19 Rx Nitroglycerin Sl Tabs [Nitrostat] 0.4 mg SUBLINGUAL Q5M PRN #25 tab 12/23/19 Rx Ciprofloxacin/Ciprofloxa HCl 500 mg PO Q24HR 3 Days #3 tab 01/03/20 Rx [Ciprofloxacin ER] HYDROcodone/APAP 5-325MG [[place] 1 tab PO Q6HR PRN 3 Days #12 tab 01/03/20 Rx 5-325] Allergies Allergy/AdvReac Type Severity Reaction Status Date / Time cephalexin monohydrate Allergy Unknown Verified 01/03/20 10:27 [From Keflex] Childhood Penicillins Allergy Rash/Hives Verified 01/03/20 10:27 amlodipine besylate AdvReac Intermediate tremors Verified 01/03/20 10:27 [From Norvasc] neomycin AdvReac exacerbates Verified 01/03/20 10:27 whatever skin condition using for Physical Exam Osteopathic Statement: *. No significant issues noted on an osteopathic str uctural exam other than those noted in the History and Physical/Consult. Vitals: Vital Signs Temp Pulse Resp BP Pulse Ox 01/03/20 12:51 62 18 147/71 94 L 01/03/20 11:32 73 18 141/74 01/03/20 10:27 98.0 F 71 16 158/77 96 Intake and Output 01/02/20 01/03/20 01/03/20 22:59 06:59 14:59 Other: Weight 65.771 kg Gen: awake, alert HEENT: normocephalic, atraumatic, good hearing acuity, moist mucous membranes Resp: CTAB, good air exchange, no accessory muscle use, no wheezes, crackles, rhonchi CVS: good distal perfusion x 4, RRR, no murmurs, clicks, gallops GI: soft, NTTP, ND : no SPT, no CVAT, ramírez catheter not present MSK: no pitting edema, no clubbing Neuro: non-focal, no sensory deficits, appropriate tone Psych: cooperative, euthymic mood Results CBC & Chem 7: 01/03/20 13:22 01/03/20 13:22 Labs: Abnormal Lab Results - Last 24 Hours (Table) 01/03/20 01/03/20 01/03/20 Range/Units 11:31 13:22 13:22 WBC 3.6 L (3.8-10.6) k/uL Lymphocytes # 0.9 L (1.0-4.8) k/uL Sodium 130 L (137-145) mmol/L Chloride 95 L (98-107) mmol/L BUN 19 H (7-17) mg/dL Glucose 118 H (74-99) mg/dL Urine Appearance Slightly Cloudy H (Clear) Urine Nitrite Positive H (Negative) Urine WBC 24 H (0-5) /hpf Urine Bacteria Occasional H (None) /hpf Hyaline Casts 10 H (0-2) /lpf Urine Mucus Rare H (None) /hpf Assessment and Plan Assessment: 1. Chest pain 2. Back pain 3. Complicated urinary tract infection 4. CAD status post PCI 5. Hypertension 6. Hyperlipidemia next 82-year-old woman with past medical history of CAD, hypertension, hyperlipidemia, sciatica presented with pain which has resolved during her emergency room course, but then developed chest pain in the setting of recent PCI warranting admission for ACS rule out; incidentally found urinary tract infection. Plan: - trend troponins, EKG/nitro PRN for chest pain - cardiology to follow - resume home meds - tylenol/norco PRN for back pain - monitor on telemetry Full Code DVT PPx: ambulate TID
[2020-01-03] MEDS: HYDROcodone/APAP 5-325MG 1 EACH TAB PO PRN (20:31)
[2020-01-03] MEDS: ATORVASTATIN 40 MG TAB PO SCH (21:02)
[2020-01-03] MEDS: METOPROLOL TARTRATE 25 MG TAB PO SCH (21:02)
[2020-01-04] MEDS: HYDROcodone/APAP 5-325MG 1 EACH TAB PO PRN ×3 (02:46→21:32)
[2020-01-04 06:33] LABS: Basophils % (A) 1 %; Eosinophils # (A) 0.1 k/uL (0-0.7); Eosinophils % (A) 3 %; HCT 37.6 % (34.0-46.0); HGB 12.3 gm/dL (11.4-16.0); Lymphocytes # (A) 0.7 k/uL (1.0-4.8); Lymphocytes % (A) 26 %; MCH 28.2 pg (25.0-35.0); MCHC 32.6 g/dL (31.0-37.0); MCV 86.4 fL (80.0-100.0); Mean Platelet Volume 6.7; Monocytes # (A) 0.2 k/uL (0-1.0); Monocytes % (A) 9 %; Neutrophils # (A) 1.7 k/uL (1.3-7.7); Neutrophils % (A) 60 %; Platelet Count 150 k/uL (150-450); RBC 4.35 m/uL (3.80-5.40); RDW 12.9 % (11.5-15.5); WBC 2.8 k/uL (3.8-10.6)
[2020-01-04 06:44] LABS: Calcium 9.2 mg/dL (8.4-10.2); Magnesium 1.5 mg/dL (1.6-2.3); Potassium 3.7 mmol/L (3.5-5.1)
[2020-01-04] MEDS: LEVOTHYROXINE 100 MCG TAB PO SCH (06:58)
[2020-01-04] MEDS: ASPIRIN 325 MG TAB PO SCH (08:32)
[2020-01-04] MEDS: CLOPIDOGREL 75 MG TAB PO SCH (08:32)
[2020-01-04] MEDS ORDERED: POTASSIUM CHLORIDE ER 20 MEQ TAB.ER PO STA (09:28)
[2020-01-04] MEDS ORDERED: diazePAM 2 MG TAB PO STA (09:32)
[2020-01-04] MEDS: MAGNESIUM SULFATE-D5W PMX 1 GM in DEXTROSE/WATER 1 100ML.BAG IVPB SCH ×4 (10:21→16:38)
[2020-01-04] MEDS: amLODIPine 10 MG TAB PO SCH (10:22)
--- NOTE | 2020-01-04 11:37 | P.CRDCN ---
History of Present Illness Consult date: 01/04/20 Chief complaint: Chest pain History of present illness: This is a very pleasant 84-year-old female patient with a past medical history significant for coronary artery disease with underwent stenting of the LAD recently on December [id number] by Dr. Merrill as well as history of hypertension and dyslipidemia presented to the emergency room initially complaining of low back pain. The patient was diagnosed in the past with sciatica and she present ed to the hospital complaining of "sciatica pain. She was given Dilaudid with improvement in the pain and just before she was going to be discharged home she developed chest discomfort. For that reason the patient was admitted to the observation unit. Acute coronary event was ruled out. The patient underwent 3 sets of cardiac enzymes came in to be unremarkable. The EKG showed sinus rhythm with T-wave inversion in the anterolateral leads. Comparing this EKG to previous EKG showed that the changes are somewhat more prominent compared to before. Currently she is chest pain-free. Otherwise hemodynamically she is stable beside pressure being slightly on the higher side. Beside that she is on dual antiplatelet therapy along with statin. I am going to add oral nitrates to the current medical regimen. I am going to observe the patient for the next 24 hours. We'll keep the patient up and around and if she developed any more chest pain or chest discomfort I will consider proceeding with coronary angiogram by Dr. Merrill. Past Medical History Past Medical History: Cancer, GERD/Reflux, Hyperlipidemia, Hypertension, Osteoarthritis (OA), Pneumonia, Sleep Apnea/CPAP/BIPAP, Thyroid Disorder Additional Past Medical History / Comment(s): Pt recently admitted to [facility] on 12/22/19 with PCI/stent placement. 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 History of Any Multi-Drug Resistant Organisms: None Reported Past Surgical History: Appendectomy, Cholecystectomy, Heart Catheterization, Heart Catheterization With Stent, Hysterectomy, Orthopedic Surgery Additional Past Surgical History / Comment(s): 12/22/19 PCI with stent to LAD, partial thyroidectomy, mediport insertion/removal, bilateral carpal tunnel releases Past Anesthesia/Blood Transfusion Reactions: No Reported Reaction Date of Last Stent Placement:: 12/22/19 Smoking Status: Never smoker - Past Family History Father Family Medical History: Cancer Additional Family Medical History / Comment(s): HEAVY SMOKER AND WAS A ASSISTANT PROFESSOR SURGICAL TECHNOLOGY, FROM LUNG CANCER. Mother Family Medical History: Diabetes Mellitus Brother(s) Family Medical History: Cancer Additional Family Medical History / Comment(s): Cerebral hemorrhage, Leukemia. Daughter(s) Family Medical History: Cancer Additional Family Medical History / Comment(s): Uterine Cancer. Medications and Allergies Home Medications Medication Instructions Recorded Confirmed Type ALPRAZolam [Xanax] 1 mg PO BID PRN 01/03/15 01/03/20 History Losartan/Hydrochlorothiazide 1 tab PO DAILY 01/03/15 01/03/20 History [Losartan-Hctz 100-25 mg Tab] Aspirin [Adult Low Dose Aspirin EC] 81 mg PO QAM 09/22/17 01/03/20 History Metoprolol Tartrate [Lopressor] 25 mg PO HS 09/22/17 01/03/20 History Carbidopa-Levodopa ER 50-200Mg 1 each PO BID 12/16/19 01/03/20 History [Sinemet CR 50-200 mg] DULoxetine HCL [Cymbalta] 60 mg PO DAILY 12/16/19 01/03/20 History Levothyroxine Sodium 100 mcg PO DAILY 12/16/19 01/03/20 History Turmeric Root Extract [Turmeric] 1,500 mg PO DAILY 12/16/19 01/03/20 History amLODIPine BESYLATE [Norvasc] 2.5 mg PO HS 12/16/19 01/03/20 History Atorvastatin [Lipitor] 40 mg PO HS 12/22/19 01/03/20 History Clopidogrel [Plavix] 75 mg PO DAILY #90 tab 12/23/19 01/03/20 Rx Nitroglycerin Sl Tabs [Nitrostat] 0.4 mg SUBLINGUAL Q5M PRN #25 tab 12/23/19 01/03/20 Rx Ciprofloxacin/Ciprofloxa HCl 500 mg PO Q24HR 3 Days #3 tab 01/03/20 Rx [Ciprofloxacin ER] HYDROcodone/APAP 5-325MG [[place] 1 tab PO Q6HR PRN 3 Days #12 tab 01/03/20 Rx 5-325] Allergies Allergy/AdvReac Type Severity Reaction Status Date / Time cephalexin monohydrate Allergy Unknown Verified 01/03/20 10:27 [From Keflex] Childhood Penicillins Allergy Rash/Hives Verified 01/03/20 10:27 amlodipine besylate AdvReac Intermediate tremors Verified 01/03/20 10:27 [From Norvasc] neomycin AdvReac exacerbates Verified 01/03/20 10:27 whatever skin condition using for Physical Exam Vitals: Vital Signs Temp Pulse Pulse Resp BP BP Pulse Ox 01/04/20 09:00 76 16 01/04/20 08:20 98.3 F 76 16 151/68 97 01/04/20 03:00 98 F 60 18 163/84 99 01/03/20 21:00 98.6 F 67 18 157/80 98 01/03/20 15:52 98.0 F 66 18 135/82 97 01/03/20 12:51 62 18 147/71 94 L Intake and Output 01/03/20 01/04/20 01/04/20 22:59 06:59 14:59 Intake Total 450 0 480 Balance 450 0 480 Intake: Oral 450 0 480 Other: Voiding Method Toilet Toilet Toilet # Voids 1 1 Weight 65.771 kg - Constitutional General appearance: no acute distress - Respiratory Respiratory: bilateral: CTA - Cardiovascular Rhythm: regular Heart sounds: normal: S1, S2 Results 01/04/20 05:49 01/04/20 05:49 Cardiac Enzymes 01/03/20 01/03/20 01/03/20 Range/Units 13:22 16:27 19:35 CK-MB (CK-2) 1.2 (0.0-2.4) ng/mL Troponin I <0.012 <0.012 <0.012 (0.000-0.034) ng/mL Coagulation 01/03/20 Range/Units 13:22 PT 10.5 (9.0-12.0) sec APTT 24.7 (22.0-30.0) sec Lipids 01/04/20 Range/Units 05:49 Triglycerides 131 (<150) mg/dL Cholesterol 150 (<200) mg/dL HDL Cholesterol 46 (40-60) mg/dL CBC 01/03/20 01/04/20 Range/Units 13:22 05:49 WBC 3.6 L 2.8 L (3.8-10.6) k/uL RBC 4.41 4.35 (3.80-5.40) m/uL Hgb 12.7 12.3 (11.4-16.0) gm/dL Hct 37.9 37.6 (34.0-46.0) % Plt Count 190 150 (150-450) k/uL Comprehensive Metabolic Panel 01/03/20 01/04/20 Range/Units 13:22 05:49 Sodium 130 L 131 L (137-145) mmol/L Potassium 4.0 3.7 (3.5-5.1) mmol/L Chloride 95 L 91 L (98-107) mmol/L Carbon Dioxide 29 31 H (22-30) mmol/L BUN 19 H 18 H (7-17) mg/dL Creatinine 0.84 0.84 (0.52-1.04) mg/dL Glucose 118 H 114 H (74-99) mg/dL Calcium 9.1 9.2 (8.4-10.2) mg/dL Current Medications Generic Name Dose Route Start Last Admin Trade Name Freq PRN Reason Stop Dose Admin Acetaminophen 650 mg 01/03/20 14:25 Tylenol Tab PO Q6HR PRN Mild Pain or Fever > 100.5 Hydrocodone Bitart/Acetaminophen 1 each 01/03/20 14:25 01/04/20 08:32 [place] 5-325 PO 1 each Q4HR PRN Administration Moderate Pain Amlodipine Besylate 10 mg 01/04/20 09:30 01/04/20 10:22 Norvasc PO 10 mg DAILY TYRONE Administration Aspirin 325 mg 01/04/20 09:00 01/04/20 08:32 Aspirin PO 325 mg DAILY TYRONE Administration Atorvastatin Calcium 40 mg 01/03/20 21:00 01/03/20 21:02 Lipitor PO 40 mg HS TYRONE Administration Clopidogrel Bisulfate 75 mg 01/04/20 09:00 01/04/20 08:32 Plavix PO 75 mg DAILY TYRONE Administration Docusate Sodium 100 mg 01/03/20 14:25 Colace PO BID PRN Constipation Levofloxacin 750 mg/ IV 150 mls @ 100 mls/hr 01/04/20 14:00 Solution IVPB DAILY@1400 TYRONE Magnesium Sulfate/Dextrose 1 100 mls @ 100 mls/hr 01/04/20 10:00 08/18/20 10:21 gm/ IV Solution IVPB 01/04/20 13:59 100 mls/hr Q1H TYRONE Administration Isosorbide Mononitrate 30 mg 01/05/20 09:00 Imdur PO DAILY TYRONE Levothyroxine Sodium 100 mcg 01/04/20 06:30 01/04/20 06:58 Synthroid PO 100 mcg DAILY@0630 TYRONE Administration Metoprolol Tartrate 25 mg 01/03/20 21:00 01/03/20 21:02 Lopressor PO 25 mg HS TYRONE Administration Naloxone HCl 0.2 mg 01/03/20 14:25 Narcan IV Q2M PRN Opioid Reversal Nitroglycerin 0.4 mg 01/03/20 14:21 Nitrostat SUBLINGUAL Q5M PRN Chest Pain Ondansetron HCl 4 mg 01/03/20 14:25 Zofran IVP Q8HR PRN Nausea And Vomiting Intake and Output 01/03/20 01/04/20 01/04/20 22:59 06:59 14:59 Intake Total 450 0 480 Balance 450 0 480 Intake: Oral 450 0 480 Other: Voiding Method Toilet Toilet Toilet # Voids 1 1 Weight 65.771 kg 01/04/20 05:49 01/04/20 05:49 Assessment and Plan Assessment: Assessment #1 atypical chest discomfort #2 abnormal EKG #3 coronary artery disease and prior stenting of the LAD Plan #1 acute coronary event was ruled out #2 add oral nitrates to the current medical regimen #3 observe the patient for the next 24 hours #4 obtain an echocardiogram was Doppler #5 follow-up with the patient Thank you for allowing us participate in her care
--- NOTE | 2020-01-04 12:13 | P.PN ---
Subjective Progress Note Date: 01/04/20 No new copmlaints today. reports back pain is worse than yesterday. feels very hungry this morning. feels thirsty this morning as well. Objective - Vital Signs Vital signs: Vital Signs Temp 98.3 F 01/04/20 08:20 Pulse 76 01/04/20 09:00 Resp 16 01/04/20 09:00 BP 151/68 01/04/20 08:20 Pulse Ox 97 01/04/20 08:20 Intake & Output 01/03/20 01/04/20 01/04/20 18:59 06:59 18:59 Intake Total 450 480 Balance 450 480 Weight 65.771 kg Intake: Oral 450 480 Other: Voiding Method Toilet Toilet # Voids 1 - Exam Gen: awake, alert HEENT: normocephalic, atraumatic, good hearing acuity, moist mucous membranes Resp: CTAB, good air exchange, no accessory muscle use, no wheezes, crackles, rhonchi CVS: good distal perfusion x 4, RRR, no murmurs, clicks, gallops GI: soft, NTTP, ND : no SPT, no CVAT, ramírez catheter not present MSK: no pitting edema, no clubbing Neuro: non-focal, no sensory deficits, appropriate tone Psych: cooperative, euthymic mood - Labs CBC & Chem 7: 01/04/20 05:49 01/04/20 05:49 Labs: Abnormal Lab Results - Last 24 Hours (Table) 01/03/20 01/03/20 01/04/20 Range/Units 13:22 13:22 05:49 WBC 3.6 L (3.8-10.6) k/uL Lymphocytes # 0.9 L (1.0-4.8) k/uL Sodium 130 L 131 L (137-145) mmol/L Chloride 95 L 91 L (98-107) mmol/L Carbon Dioxide 31 H (22-30) mmol/L BUN 19 H 18 H (7-17) mg/dL Glucose 118 H 114 H (74-99) mg/dL Magnesium 1.5 L (1.6-2.3) mg/dL 01/04/20 Range/Units 05:49 WBC 2.8 L (3.8-10.6) k/uL Lymphocytes # 0.7 L (1.0-4.8) k/uL Sodium (137-145) mmol/L Chloride (98-107) mmol/L Carbon Dioxide (22-30) mmol/L BUN (7-17) mg/dL Glucose (74-99) mg/dL Magnesium (1.6-2.3) mg/dL Assessment and Plan Assessment: 1. Chest pain 2. Back pain 3. Complicated urinary tract infection 4. CAD status post PCI 5. Hypertension 6. Hyperlipidemia next 82-year-old woman with past medical history of CAD, hypertension, hyperlipidemia, sciatica presented with pain which has resolved during her emerg ency room course, but then developed chest pain in the setting of recent PCI warranting admission for ACS rule out; incidentally found urinary tract infection. Plan: - trend troponins, EKG/nitro PRN for chest pain = no ACS at this time - cardiology to follow and titrate medications, appreciate their help - tylenol/norco PRN for back pain, + lidocaine patch + valium 2mg q8h PRN - while using valium, d/c other benzos. - monitor on telemetry Full Code DVT PPx: ambulate TID
[2020-01-04] MEDS ORDERED: LEVOFLOXACIN 750MG-D5W PMX 750 MG in DEXTROSE/WATER 1 150ML.BAG IVPB SCH (14:00)
[2020-01-04] MEDS: diazePAM 2 MG TAB PO PRN ×2 (16:44→21:45)
--- NOTE | 2020-01-04 18:00 | ECHOF ---
Referral Reason:CP MEASUREMENTS -------- HEIGHT: 165.1 cm WEIGHT: 65.8 kg BP: IVSd: 1.6 cm (0.6 - 1.1) LVIDd: 3.3 cm (3.9 - 5.3) LVPWd: 1.5 cm (0.6 - 1.1) IVSs: 1.5 cm LVIDs: 3.6 cm LVPWs: 1.0 cm Ao Diam: 3.1 cm (2.0 - 3.7) AV Cusp: 1.4 cm (1.5 - 2.6) MV EXCURSION: 14.703 mm (> 18.000) MV EF SLOPE: 68 mm/s (70 - 150) EPSS: 0.3 cm MV E Luis: 0.81 m/s MV DecT: 250 ms MV A Luis: 1.24 m/s MV E/A Ratio: 0.65 AV maxP.32 mmHg AV meanP.79 mmHg RAP: 5.00 mmHg RVSP: 39.28 mmHg FINDINGS -------- Sinus rhythm. This was a technically adequate study. There is severe concentric left ventricular hypertrophy. Overall left ventricular systolic function is normal with, an EF between 65 - 70 %. The right ventricle is normal in size. The left atrium is mildly dilated. The right atrial size is normal. There is mild aortic valve sclerosis. Peak/mean gradient across the Aortic Valve is 11.32mmHg / 6.7 9mmHg. The mitral valve leaflets are mildly thickened. Moderate mitral regurgitation is present. Mild tricuspid regurgitation present. There is mild pulmonary hypertension. There is no pulmonic regurgitation present. The aortic root size is normal. There is no pericardial effusion. CONCLUSIONS -------- 1. There is severe concentric left ventricular hypertrophy. 2. Overall left ventricular systolic function is normal with, an EF between 65 - 70 %. 3. The right ventricle is normal in size. 4. The left atrium is mildly dilated. 5. The right atrial size is normal. 6. There is mild aortic valve sclerosis. 7. Peak/mean gradient across the Aortic Valve is 11.32mmHg / 6.79mmHg. 8. The mitral valve leaflets are mildly thickened. 9. Moderate mitral regurgitation is present. 10. Mild tricuspid regurgitation present. 11. There is mild pulmonary hypertension. 12. There is no pulmonic regurgitation present. EVENT MANAGEMENT CONSULTANT: Lisa Hutchinson RDCS
[2020-01-04] MEDS: METOPROLOL TARTRATE 25 MG TAB PO SCH (20:28)
[2020-01-04] MEDS: ATORVASTATIN 40 MG TAB PO SCH (20:28)
[2020-01-05 01:15] VITALS: RESP 18
[2020-01-05] MEDS: LEVOTHYROXINE 100 MCG TAB PO SCH (06:22)
[2020-01-05] MEDS: CLOPIDOGREL 75 MG TAB PO SCH (08:59)
[2020-01-05] MEDS: amLODIPine 10 MG TAB PO SCH (08:59)
[2020-01-05] MEDS: ASPIRIN 325 MG TAB PO SCH (08:59)
[2020-01-05] MEDS ORDERED: ISOSORBIDE MONONITRATE ER 30 MG TAB.ER.24H PO SCH (09:00)
[2020-01-05] MEDS: HYDROcodone/APAP 5-325MG 1 EACH TAB PO PRN (09:03)
--- NOTE | 2020-01-05 09:41 | P.PN ---
Subjective Progress Note Date: 01/05/20 Principal diagnosis: Chest pain This is a very pleasant 84-year-old female patient with a past medical history significant for coronary artery disease with underwent stenting of the LAD recently on December [id number] by Dr. Merrill as well as history of hypertension and dyslipidemia presented to the emergency room initially complaining of low back pain. The patient was diagnosed in the past with sciatica and she presented to the hospital complaining of "sciatica pain. She was given Dilaudid with improvement in the pain and just before she was going to be discharged home she developed chest discomfort. For that reason the patient was admitted to the observation unit. Acute coronary event was ruled out. The patient underwent 3 sets of cardiac enzymes came in to be unremarkable. The EKG showed sinus rhythm with T-wave inversion in the anterolateral leads. The patient was seen today January [id number]. She has been chest pain-free. Yesterday I did add oral nitrates to the current medical regimen. Enzymes continues to be within normal limits. The patient would like to be discharged home. I am going to send the patient home today and she will follow-up with Dr. Merrill Objective - Vital Signs Vital signs: Vital Signs Temp 98 F 01/05/20 03:00 Pulse 77 01/05/20 03:00 Resp 18 01/05/20 03:00 BP 137/77 01/05/20 03:00 Pulse Ox 99 01/05/20 03:00 Intake & Output 01/04/20 01/05/20 01/05/20 18:59 06:59 18:59 Intake Total 960 450 Balance 960 450 Intake: Oral 960 450 Other: Voiding Method Toilet Toilet # Voids 1 1 - Constitutional General appearance: Present: no acute distress - Respiratory Respiratory: bilateral: CTA - Cardiovascular Rhythm: regular Heart sounds: normal: S1, S2 - Labs CBC & Chem 7: 01/04/20 05:49 01/04/20 05:49 Assessment and Plan Assessment: Assessment #1 atypical chest discomfort #2 abnormal EKG #3 coronary artery disease and prior stenting of the LAD Plan #1 acute coronary event was ruled out #2 continue the current medical regimen including oral nitrate #3 the patient can be discharged home
[2020-01-05 09:54] VITALS: BP 132/75; PULSE 68; TEMP 97.9
--- NOTE | 2020-01-05 10:47 | P.DS ---
Providers Date of admission: 01/03/20 14:25 Attending physician: Pam Han MD Consults: 01/03/20 14:21 Consult Physician Urgent Consulting Provider: Erick Merrill Consult Reason/Comments: chest pain Do you want consulting provider notified?: Yes Primary care physician: Genevieve [facility] Course: 1. Chest pain 2. Back pain 3. Complicated urinary tract infection 4. CAD status post PCI 5. Hypertension 6. Hyperlipidemia next 82-year-old woman with past medical history of CAD, hypertension, hyperlipidemia, sciatica presented with pain which has resolved during her emergency room course, but then developed chest pain in the setting of recent PCI warranting admission for ACS rule out; incidentally found urinary tract infection. Discharge Recs and course: - trended troponins, EKG/nitro PRN for chest pain = no ACS during hospitalization. - cardiology followed and titrated medications, appreciate their help = they added imdur to medication regimen - tylenol/norco PRN for back pain, + lidocaine patch + valium 2mg q8h PRN = discharged with norco and short course of valium, instructed to follow up with PCP - while using valium, d/c other benzos = discontinued xanax at discharge. - monitor on telemetry = no events throughout hospitalization. Patient Condition at Discharge: Fair Plan - Discharge Summary Discharge Rx Participant: No New Discharge Prescriptions: New Ciprofloxacin/Ciprofloxa HCl [Ciprofloxacin ER] 500 mg PO Q24HR 3 Days #3 tab HYDROcodone/APAP 5-325MG [[place] 5-325] 1 tab PO Q6HR PRN 3 Days #12 tab PRN Reason: Severe Pain Docusate [Colace] 100 mg PO BID PRN #30 cap PRN Reason: Constipation Isosorbide Mononitrate ER [Imdur] 30 mg PO DAILY #30 tab.er.24h diazePAM [Valium] 2 mg PO TID PRN #15 tab PRN Reason: Breakthrough Pain Continue Losartan/Hydrochlorothiazide [Losartan-Hctz 100-25 mg Tab] 1 tab PO DAILY Metoprolol Tartrate [Lopressor] 25 mg PO HS Aspirin [Adult Low Dose Aspirin EC] 81 mg PO QAM amLODIPine BESYLATE [Norvasc] 2.5 mg PO HS DULoxetine HCL [Cymbalta] 60 mg PO DAILY Carbidopa-Levodopa ER 50-200Mg [Sinemet CR 50-200 mg] 1 each PO BID Levothyroxine Sodium 100 mcg PO DAILY Turmeric Root Extract [Turmeric] 1,500 mg PO DAILY Atorvastatin [Lipitor] 40 mg PO HS Nitroglycerin Sl Tabs [Nitrostat] 0.4 mg SUBLINGUAL Q5M PRN #25 tab PRN Reason: Chest Pain Clopidogrel [Plavix] 75 mg PO DAILY #90 tab Discontinued ALPRAZolam [Xanax] 1 mg PO BID PRN PRN Reason: Anxiety Discharge Medication List Losartan/Hydrochlorothiazide [Losartan-Hctz 100-25 mg Tab] 1 tab PO DAILY 01/03/15 [History] Aspirin [Adult Low Dose Aspirin EC] 81 mg PO QAM 09/22/17 [History] Metoprolol Tartrate [Lopressor] 25 mg PO HS 09/22/17 [History] Carbidopa-Levodopa ER 50-200Mg [Sinemet CR 50-200 mg] 1 each PO BID 12/16/19 [History] DULoxetine HCL [Cymbalta] 60 mg PO DAILY 12/16/19 [History] Levothyroxine Sodium 100 mcg PO DAILY 12/16/19 [History] Turmeric Root Extract [Turmeric] 1,500 mg PO DAILY 12/16/19 [History] amLODIPine BESYLATE [Norvasc] 2.5 mg PO HS 12/16/19 [History] Atorvastatin [Lipitor] 40 mg PO HS 12/22/19 [History] Clopidogrel [Plavix] 75 mg PO DAILY #90 tab 12/23/19 [Rx] Nitroglycerin Sl Tabs [Nitrostat] 0.4 mg SUBLINGUAL Q5M PRN #25 tab 12/23/19 [Rx] Ciprofloxacin/Ciprofloxa HCl [Ciprofloxacin ER] 500 mg PO Q24HR 3 Days #3 tab 01/03/20 [Rx] HYDROcodone/APAP 5-325MG [[place] 5-325] 1 tab PO Q6HR PRN 3 Days #12 tab 01/03/20 [Rx] Docusate [Colace] 100 mg PO BID PRN #30 cap 01/05/20 [Rx] Isosorbide Mononitrate ER [Imdur] 30 mg PO DAILY #30 tab.er.24h 01/05/20 [Rx] diazePAM [Valium] 2 mg PO TID PRN #15 tab 01/05/20 [Rx] Follow up Appointment(s)/Referral(s): Fay Bundy DO [Doctor of Osteopathic Medicine] - 1-2 days Genevieve Alegre MD [Primary Care Provider] - 1-2 days Discharge Disposition: HOME SELF-CARE
[2020-01-05] MEDS: diazePAM 2 MG TAB PO PRN (11:43)
[2020-01-06] MEDS ORDERED: LEVOFLOXACIN 750 MG TAB PO SCH (14:00)
== END 2020-01-05 11:50 | disposition home or self-care (01) ==
LOC: EC 10:27 → 3NCARDOBS 14:25
PROVIDERS: ADMIT Internal Medicine; ATTEND Internal Medicine
DX: R07.89 Other chest pain (principal); R94.31 Abnormal electrocardiogram [ECG] [EKG]; N39.0 Urinary tract infection, site not specified; M51.16 Intervertebral disc disorders with radiculopathy, lumbar region; M48.061 Spinal stenosis, lumbar region without neurogenic claudication; I25.10 Atherosclerotic heart disease of native coronary artery without angina pectoris; I10 Essential (primary) hypertension; E78.5 Hyperlipidemia, unspecified; K21.9 Gastro-esophageal reflux disease without esophagitis; M19.90 Unspecified osteoarthritis, unspecified site; G47.30 Sleep apnea, unspecified; R32 Unspecified urinary incontinence; G62.9 Polyneuropathy, unspecified; I73.00 Raynaud's syndrome without gangrene; E89.0 Postprocedural hypothyroidism; F41.9 Anxiety disorder, unspecified; F32.9 Major depressive disorder, single episode, unspecified; I08.3 Combined rheumatic disorders of mitral, aortic and tricuspid valves; I27.20 Pulmonary hypertension, unspecified; Z95.5 Presence of coronary angioplasty implant and graft; Z79.899 Other long term (current) drug therapy; Z79.82 Long term (current) use of aspirin; Z79.890 Hormone replacement therapy; Z79.02 Long term (current) use of antithrombotics/antiplatelets; Z88.1 Allergy status to other antibiotic agents; Z88.0 Allergy status to penicillin; Z88.8 Allergy status to other drugs, medicaments and biological substances; Z85.72 Personal history of non-Hodgkin lymphomas; Z92.21 Personal history of antineoplastic chemotherapy; Z87.01 Personal history of pneumonia (recurrent); Z99.89 Dependence on other enabling machines and devices; Z86.2 Personal history of diseases of the blood and blood-forming organs and certain disorders involving the immune mechanism; Z87.440 Personal history of urinary (tract) infections; Z90.49 Acquired absence of other specified parts of digestive tract; Z90.710 Acquired absence of both cervix and uterus; Z98.890 Other specified postprocedural states; Z86.69 Personal history of other diseases of the nervous system and sense organs; Z80.1 Family history of malignant neoplasm of trachea, bronchus and lung; Z80.6 Family history of leukemia; Z80.49 Family history of malignant neoplasm of other genital organs; Z81.2 Family history of tobacco abuse and dependence; Z83.3 Family history of diabetes mellitus; Z82.3 Family history of stroke
CPT/HCPCS: 93005 ×3; 96365; 96375 ×2; 99285; 36415; 93306; 80061; 80048 ×2; 82553; 83735; 84484 ×2; 85025 ×2; 85610; 85730; 81001; 71045; 72131; G0378 ×3; J2405; J1956; J3475; J1170

== ENCOUNTER 2020-01-18 00:38 | Inpatient (IN) | payer MEDICARE ==
[2020-01-18] MEDS ORDERED: fentaNYL (PF) 50 MCG/ML 2 ML AMP IVP STA (01:38)
--- NOTE | 2020-01-18 01:39 | ED ---
Extremity Problem HPI - General Chief complaint: Extremity Problem,Nontraumatic Stated complaint: sciatic pain Time Seen by Provider: 01/18/20 00:39 Source: patient, EMS Mode of arrival: EMS Limitations: no limitations - History of Present Illness Initial comments: Audra is an 84-year-old female who presents the ER today via ambulance for evaluation of left shoulder pain that has not improved with multiple home medications. Patient had a complicated month, she had a cardiac catheterization in early December with stenting, she is on aspirin and Plavix for that. She's been admitted for UTI. Patient's also been suffering from chronic back pain, [facility] for her back and neck pain. Patient reports that she was prescribed Ultram which she began taking on and since that time developed swelling of her hands with hives. She has multiple excoriations on her hands secondary to hives. Patient reports over the past 2-3 days she's developed significant pain in her left shoulder which limits her ability to move the arm at all. She does admit to taking OxyContin and [place] for her and her had from previous prescription shins. Patient does have a reported ALLERGY to these but doesn't seem to be reacting acutely. She reports that despite taking Ultram OxyContin and [place] she's had no relief of the pain in her shoulder. She denies any fevers chills nausea or vomiting. She reports she's been compliant with her home medications. She denies any history of gout. She denies any injuries or falls. - Related Data Home Medications Medication Instructions Recorded Confirmed Losartan/Hydrochlorothiazide 1 tab PO DAILY 01/03/15 01/03/20 [Losartan-Hctz 100-25 mg Tab] Aspirin [Adult Low Dose Aspirin EC] 81 mg PO QAM 09/22/17 01/03/20 Metoprolol Tartrate [Lopressor] 25 mg PO HS 09/22/17 01/03/20 Carbidopa-Levodopa ER 50-200Mg 1 each PO BID 12/16/19 01/03/20 [Sinemet CR 50-200 mg] DULoxetine HCL [Cymbalta] 60 mg PO DAILY 12/16/19 01/03/20 Levothyroxine Sodium 100 mcg PO DAILY 12/16/19 01/03/20 Turmeric Root Extract [Turmeric] 1,500 mg PO DAILY 12/16/19 01/03/20 amLODIPine BESYLATE [Norvasc] 2.5 mg PO HS 12/16/19 01/03/20 Atorvastatin [Lipitor] 40 mg PO HS 12/22/19 01/03/20 Previous Rx's Medication Instructions Recorded Clopidogrel [Plavix] 75 mg PO DAILY #90 tab 12/23/19 Nitroglycerin Sl Tabs [Nitrostat] 0.4 mg SUBLINGUAL Q5M PRN #25 tab 12/23/19 Ciprofloxacin HCl [Cipro] 500 mg PO BID 3 Days #6 tab 01/05/20 Docusate [Colace] 100 mg PO BID PRN #30 cap 01/05/20 HYDROcodone/APAP 5-325MG [[place] 1 tab PO Q6HR PRN 3 Days #12 tab 01/05/20 5-325] Isosorbide Mononitrate ER [Imdur] 30 mg PO DAILY #30 tab.er.24h 01/05/20 diazePAM [Valium] 2 mg PO TID PRN 3 Days #9 tab 01/05/20 Allergies Allergy/AdvReac Type Severity Reaction Status Date / Time cephalexin monohydrate Allergy Unknown Verified 01/03/20 10:27 [From Keflex] Childhood morphine Allergy Itching Verified 01/18/20 00:52 Penicillins Allergy Rash/Hives Verified 01/03/20 10:27 amlodipine besylate AdvReac Intermediate tremors Verified 01/03/20 10:27 [From Norvasc] neomycin AdvReac exacerbates Verified 01/03/20 10:27 whatever skin condition using for Review of Systems ROS Statement: Those systems with pertinent positive or pertinent negative responses have been documented in the HPI. ROS Other: All systems not noted in ROS Statement are negative. Past Medical History Past Medical History: Cancer, GERD/Reflux, Hyperlipidemia, Hypertension, Osteoarthritis (OA), Pneumonia, Sleep Apnea/CPAP/BIPAP, Thyroid Disorder Additional Past Medical History / Comment(s): Pt recently admitted to [facility] on 12/22/19 with PCI/stent placement. 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 History of Any Multi-Drug Resistant Organisms: None Reported Past Surgical History: Appendectomy, Cholecystectomy, Heart Catheterization, Heart Catheterization With Stent, Hysterectomy, Orthopedic Surgery Additional Past Surgical History / Comment(s): 12/22/19 PCI with stent to LAD, partial thyroidectomy, mediport insertion/removal, bilateral carpal tunnel releases Past Anesthesia/Blood Transfusion Reactions: No Reported Reaction Date of Last Stent Placement:: 12/22/19 Past Psychological History: Anxiety, Depression Smoking Status: Never smoker Past Alcohol Use History: None Reported Past Drug Use History: None Reported - Past Family History Father Family Medical History: Cancer Additional Family Medical History / Comment(s): HEAVY SMOKER AND WAS A FUEL STORAGE TECHNICIAN, FROM LUNG CANCER. Mother Family Medical History: Diabetes Mellitus Brother(s) Family Medical History: Cancer Additional Family Medical History / Comment(s): Cerebral hemorrhage, Leukemia. Daughter(s) Family Medical History: Cancer Additional Family Medical History / Comment(s): Uterine Cancer. General Exam - General Exam Comments Initial Comments: Physical Exam GENERAL: Appears uncomfortable HENT: Normocephalic, Atraumatic. EYES: PERRL, EOMI PULMONARY: Unlabored respirations. No audible rales rhonchi or wheezing was noted. CARDIOVASCULAR: There is a regular rate and rhythm without any murmurs gallops or rubs. ABDOMEN: Soft and nontender with normal bowel sounds. No pulsatile mass SKIN: Excoriations on bilateral hands : Deferred NEUROLOGIC: Patient is alert and oriented x3. Moving all extremities spontaneously MUSCULOSKELETAL: Patient guards against active and passive ROM of left shoulder, shoulder is not erythematous, no edema or effusion PSYCHIATRIC: Normal psychiatric evaluation. Limitations: no limitations Course Vital Signs 01/18/20 00:41 Temperature 98.7 F Pulse Rate 86 Respiratory 18 Rate Blood Pressure 169/86 O2 Sat by Pulse 95 Oximetry Medical Decision Making - Medical Decision Making The patient was seen and evaluated, history is obtained from the patient and daughter bedside 84-year-old female with intractable pain in her left shoulder pain appears to be strictly musculoskeletal in nature as patient will not tolerate any range of motion of the shoulder No obvious deformities, the shoulder is warm to the touch with the patient's arms are also warm to the touch, there is no obvious effusion Labs and x-rays were ordered Labs resulted with evidence of bicytopenia, significantly elevated CRP X-rays with no free air or signs of osteomyelitis Patient reported no improvement with pain after fentanyl Considering the patient's advanced age, polypharmacy with no improvement in pain, elevated inflammatory markers I do have concern the patient may have a septic joint and warrants IV antibiotics and evaluation by orthopedics This plan was discussed with Dr. Arzola of the [facility] who agrees with plan - Lab Data Result diagrams: 01/18/20 01:45 01/18/20 01:45 Lab Results 01/18/20 01/18/20 Range/Units 01:45 01:45 WBC 2.5 L (3.8-10.6) k/uL RBC 4.32 (3.80-5.40) m/uL Hgb 12.4 (11.4-16.0) gm/dL Hct 37.0 (34.0-46.0) % MCV 85.8 (80.0-100.0) fL MCH 28.7 (25.0-35.0) pg MCHC 33.4 (31.0-37.0) g/dL RDW 12.8 (11.5-15.5) % Plt Count 116 L (150-450) k/uL Neutrophils % 68 % Lymphocytes % 15 % Monocytes % 9 % Eosinophils % 3 % Basophils % 1 % Neutrophils # 1.7 (1.3-7.7) k/uL Lymphocytes # 0.4 L (1.0-4.8) k/uL Monocytes # 0.2 (0-1.0) k/uL Eosinophils # 0.1 (0-0.7) k/uL Basophils # 0.0 (0-0.2) k/uL Sodium 131 L (137-145) mmol/L Potassium 3.6 (3.5-5.1) mmol/L Chloride 93 L (98-107) mmol/L Carbon Dioxide 29 (22-30) mmol/L Anion Gap 9 mmol/L BUN 16 (7-17) mg/dL Creatinine 0.81 (0.52-1.04) mg/dL Est GFR (CKD-EPI)AfAm 79 (>60 ml/min/1.73 sqM) Est GFR (CKD-EPI)NonAf 68 (>60 ml/min/1.73 sqM) Glucose 127 H (74-99) mg/dL Calcium 9.1 (8.4-10.2) mg/dL Total Bilirubin 0.8 (0.2-1.3) mg/dL AST 29 (14-36) U/L ALT 23 (4-34) U/L Alkaline Phosphatase 96 (38-126) U/L C-Reactive Protein 56.6 H (<10.0) mg/L Total Protein 6.7 (6.3-8.2) g/dL Albumin 4.3 (3.5-5.0) g/dL Disposition Clinical Impression: Shoulder pain, Elevated C-reactive protein (CRP) Disposition: ADMITTED IP TO THIS [facility] Condition: Stable Is patient prescribed a controlled substance at d/c from ED?: No Referrals: Genevieve Alegre MD [Primary Care Provider] - 1-2 days
--- NOTE | 2020-01-18 01:53 | XR ---
EXAMINATION TYPE: XR shoulder complete LT DATE OF EXAM: 01/18/2020 COMPARISON: 07/31/2018 HISTORY: Shoulder pain TECHNIQUE: 3 views FINDINGS: There is some spurring at the glenohumeral joint. I see no fracture nor dislocation. There is spurring at the AC joint. IMPRESSION: There are some osteoarthritic changes. No fracture seen.
[2020-01-18 02:12] LABS: HGB 12.4 gm/dL (11.4-16.0); RBC 4.32 m/uL (3.80-5.40); WBC 2.5 k/uL (3.8-10.6)
[2020-01-18 02:13] LABS: Basophils % (A) 1 %; Eosinophils # (A) 0.1 k/uL (0-0.7); Eosinophils % (A) 3 %; Lymphocytes # (A) 0.4 k/uL (1.0-4.8); Lymphocytes % (A) 15 %; MCH 28.7 pg (25.0-35.0); MCHC 33.4 g/dL (31.0-37.0); MCV 85.8 fL (80.0-100.0); Mean Platelet Volume 6.7; Monocytes # (A) 0.2 k/uL (0-1.0); Monocytes % (A) 9 %; Neutrophils # (A) 1.7 k/uL (1.3-7.7); Neutrophils % (A) 68 %; Platelet Count 116 k/uL (150-450); RDW 12.8 % (11.5-15.5)
[2020-01-18 02:24] LABS: Albumin 4.3 g/dL (3.5-5.0); C Reactive Protein 56.6 mg/L (<10.0); Calcium 9.1 mg/dL (8.4-10.2); Potassium 3.6 mmol/L (3.5-5.1); Total Bilirubin 0.8 mg/dL (0.2-1.3); Total Protein 6.7 g/dL (6.3-8.2)
[2020-01-18] MEDS ORDERED: VANCOMYCIN IV PER PHARMACY 1 EACH MISC MISCELLANE PRN (02:53)
[2020-01-18] MEDS ORDERED: LEVOFLOXACIN 500MG-D5W PMX 500 MG in DEXTROSE/WATER 1 100ML.BAG IVPB STA (02:53)
[2020-01-18] MEDS ORDERED: NALOXONE 0.4 MG/ML 1 ML VIAL IV PRN (03:28)
[2020-01-18] MEDS ORDERED: VANCOMYCIN 1,000 MG in SODIUM CHLORIDE 0.9% 250 ML IVPB ONE (04:00)
[2020-01-18] MEDS: HYDROmorphone 0.5 MG/0.5 ML SYRINGE IVP PRN ×7 (04:01→23:24)
--- NOTE | 2020-01-18 04:36 | P.HPIM ---
History of Present Illness H&P Date: 01/18/20 Patient is an 84-year-old male with a PMH of coronary artery disease, hypertension, hyperlipidemia, and chronic lower back pain from sciatica presented to the ED with complaints of left shoulder pain. The patient was recently admitted to the hospital on 01/02 for chest discomfort when ACS was ruled out though she was found to UTI for which she was discharged on ciprofloxacin. The patient reported that she completed the course and had no urinary complaints at time of interview. She reports that her left shoulder pain started shortly after discharge, has gradually worsened to a 10 out of 10, constant, radiating down to her forearm, worsened with movement. She denied trauma to the area or any falls. She denied weakness or numbness of the left arm. He further denied chest pain, shortness of breath, nausea, vomiting, diaphoresis, dizziness, abdominal pain. She was given fentanyl in the emergency room which only improved to an 8 out of 10. Left shoulder x-ray in the emergency room revealed osteoarthritic changes with no acute abnormality seen. Laboratory evaluation revealed a WBC count of 2.5, CRP 56.6, hemoglobin 12.4, platelets 116, sodium 131, potassium 3.6, chloride 93, glucose 127. Review of Systems Pertinent positives and negatives as discussed in HPI, a complete review of systems was performed and all other systems are negative. Past Medical History Past Medical History: Cancer, GERD/Reflux, Hyperlipidemia, Hypertension, Osteoarthritis (OA), Pneumonia, Sleep Apnea/CPAP/BIPAP, Thyroid Disorder Additional Past Medical History / Comment(s): Pt recently admitted to [facility] on 12/22/19 with PCI/stent placement. 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 History of Any Multi-Drug Resistant Organisms: None Reported Past Surgical History: Appendectomy, Cholecystectomy, Heart Catheterization, Heart Catheterization With Stent, Hysterectomy, Orthopedic Surgery Additional Past Surgical History / Comment(s): 12/22/19 PCI with stent to LAD, partial thyroidectomy, mediport insertion/removal, bilateral carpal tunnel releases Past Anesthesia/Blood Transfusion Reactions: No Reported Reaction Date of Last Stent Placement:: 12/22/19 Past Psychological History: Anxiety, Depression Smoking Status: Never smoker Past Alcohol Use History: None Reported Past Drug Use History: None Reported - Past Family History Father Family Medical History: Cancer Additional Family Medical History / Comment(s): HEAVY SMOKER AND WAS A MEDICAL SALES REPRESENTATIVE, FROM LUNG CANCER. Mother Family Medical History: Diabetes Mellitus Brother(s) Family Medical History: Cancer Additional Family Medical History / Comment(s): Cerebral hemorrhage, Leukemia. Daughter(s) Family Medical History: Cancer Additional Family Medical History / Comment(s): Uterine Cancer. Medications and Allergies Home Medications Medication Instructions Recorded Confirmed Type Losartan/Hydrochlorothiazide 1 tab PO DAILY 01/03/15 01/03/20 History [Losartan-Hctz 100-25 mg Tab] Aspirin [Adult Low Dose Aspirin EC] 81 mg PO QAM 09/22/17 01/03/20 History Metoprolol Tartrate [Lopressor] 25 mg PO HS 09/22/17 01/03/20 History Carbidopa-Levodopa ER 50-200Mg 1 each PO BID 12/16/19 01/03/20 History [Sinemet CR 50-200 mg] DULoxetine HCL [Cymbalta] 60 mg PO DAILY 12/16/19 01/03/20 History Levothyroxine Sodium 100 mcg PO DAILY 12/16/19 01/03/20 History Turmeric Root Extract [Turmeric] 1,500 mg PO DAILY 12/16/19 01/03/20 History amLODIPine BESYLATE [Norvasc] 2.5 mg PO HS 12/16/19 01/03/20 History Atorvastatin [Lipitor] 40 mg PO HS 12/22/19 01/03/20 History Clopidogrel [Plavix] 75 mg PO DAILY #90 tab 12/23/19 01/03/20 Rx Nitroglycerin Sl Tabs [Nitrostat] 0.4 mg SUBLINGUAL Q5M PRN #25 tab 12/23/19 01/03/20 Rx Ciprofloxacin HCl [Cipro] 500 mg PO BID 3 Days #6 tab 01/05/20 Rx Docusate [Colace] 100 mg PO BID PRN #30 cap 01/05/20 Rx HYDROcodone/APAP 5-325MG [[place] 1 tab PO Q6HR PRN 3 Days #12 tab 01/05/20 Rx 5-325] Isosorbide Mononitrate ER [Imdur] 30 mg PO DAILY #30 tab.er.24h 01/05/20 Rx diazePAM [Valium] 2 mg PO TID PRN 3 Days #9 tab 01/05/20 Rx Allergies Allergy/AdvReac Type Severity Reaction Status Date / Time cephalexin monohydrate Allergy Unknown Verified 01/03/20 10:27 [From Eyepic] Childhood morphine Allergy Itching Verified 01/18/20 00:52 Penicillins Allergy Rash/Hives Verified 01/03/20 10:27 amlodipine besylate AdvReac Intermediate tremors Verified 01/03/20 10:27 [From [facility]] neomycin AdvReac exacerbates Verified 01/03/20 10:27 whatever skin condition using for Physical Exam Vitals: Vital Signs Temp Pulse Resp BP Pulse Ox 01/18/20 00:41 98.7 F 86 18 169/86 95 Intake and Output 01/17/20 01/17/20 01/18/20 14:59 22:59 06:59 Other: Weight 65.771 kg General: non toxic, no distress, appears at stated age, normal weight Derm: no unusual rashes/lesions no unusual ecchymoses, warm, dry Head: atraumatic, normocephalic, symmetric Eyes: EOMI, no lid lag, anicteric sclera, pupils equal round reactive to light ENT: Nose and ears atraumatic, no thrush, no pharyngeal erythema Neck: No thyromegaly, no cervical lymphadenopathy, trachea midline, supple Mouth: no lip lesion, mucus membranes moist Cardiovascular: S1S2 reg, no murmur, positive posterior tibial pulse bilateral, no edema, capillary refill less than 2 seconds Lungs: CTA bilateral, no rhonchi, no rales , no accessory muscle use Abdominal: soft, nontender to palpation, no guarding, no appreciable organomegaly, normal bowel sounds Ext: no gross muscle atrophy, 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 and elbow flexion strength 5 out of 5, decreased range of motion of left shoulder due to severe pain, left shoulder minimal tenderness to palpation with no overlying skin abnormalities noted, no palpable joint effusion, erythema, or warmth, no contractures, Neuro: CN II-XI grossly intact, light touch intact all 4 extremities, finger to nose within normal limits, Psych: Alert, oriented, appropriate affect Results CBC & Chem 7: 01/18/20 01:45 01/18/20 01:45 Labs: Abnormal Lab Results - Last 24 Hours (Table) 01/18/20 01/18/20 Range/Units 01:45 01:45 WBC 2.5 L (3.8-10.6) k/uL Plt Count 116 L (150-450) k/uL Lymphocytes # 0.4 L (1.0-4.8) k/uL Sodium 131 L (137-145) mmol/L Chloride 93 L (98-107) mmol/L Glucose 127 H (74-99) mg/dL C-Reactive Protein 56.6 H (<10.0) mg/L Assessment and Plan Plan: Intractable left shoulder pain, possible septic arthritis in setting of recent UTI -No cultures performed during recent hospitalization with UTI the patient previously had pansensitive E. coli -Obtain orthopedic consult -Continue with empiric Levaquin and vancomycin for now -Follow up blood cultures -Pain control Chronic conditions: Hypertension, hyperlipidemia, coronary artery disease -Continue home meds DVT prophylaxis -Heparin subq The patient is admitted with an anticipated less than 2 midnight stay for evaluation of L shoulder pain CODE STATUS: Full Code Discussed with: Patient, Daughter, Anticipated discharge date: 1-[address]: Home A total of 40 minutes was spent on the care of this complex patient more than 50% of the time was spent in counseling and care coordination.
--- NOTE | 2020-01-18 13:36 | P.CNOR ---
History of Present Illness - HPI Consult date: 01/18/20 History of present illness: This is an 84-year-old female who is admitted due to left shoulder pain. Patient states that her left shoulder has been painful for about 2 weeks. Patient denies any injury or trauma to the left shoulder. Patient reports pain with range of motion of the left arm. Patient states that her pain has improved compared to 2 weeks ago. Patient reports radiation of pain to the left upper arm. Patient denies any numbness, weakness or tingling. Patient's past medical history significant for GERD, hyperlipidemia, hypertension, osteoarthritis, sleep apnea, hypothyroidism, non-Hodgkin's lymphoma, and neuropathy of bilateral hands and feet. Patient has a history of splenomegaly with splenic infarct secondary to non-Hodgkin's lymphoma. Patient was recently admitted to the hospital and underwent cardiac stent placement on 12/22/2019. Patient has recently been treated for UTI. Patient complains of itching in both hands today that she states started after taking tramadol. Review of Systems See HPI. Past Medical History Past Medical History: Coronary Artery Disease (CAD), Cancer, GERD/Reflux, Hyperlipidemia, Hypertension, Osteoarthritis (OA), Pneumonia, Sleep Apnea/CPAP/BIPAP, Thyroid Disorder Additional Past Medical History / Comment(s): Pt recently admitted to [facility] on 12/22/19 with PCI/stent placement/UTI. 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 History of Any Multi-Drug Resistant Organisms: None Reported Past Surgical History: Appendectomy, Cholecystectomy, Heart Catheterization, Heart Catheterization With Stent, Hysterectomy, Orthopedic Surgery Additional Past Surgical History / Comment(s): 12/22/19 PCI with stent to LAD, partial thyroidectomy, mediport insertion/removal, bilateral carpal tunnel releases Past Anesthesia/Blood Transfusion Reactions: No Reported Reaction Date of Last Stent Placement:: 12/22/19 Smoking Status: Never smoker - Past Family History Father Family Medical History: Cancer Additional Family Medical History / Comment(s): HEAVY SMOKER AND 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 Mother Family Medical History: Diabetes Mellitus Brother(s) Family Medical History: Cancer Additional Family Medical History / Comment(s): Cerebral hemorrhage, Leukemia. Daughter(s) Family Medical History: Cancer Additional Family Medical History / Comment(s): Uterine Cancer. Medications and Allergies Home Medications Medication Instructions Recorded Confirmed Type Losartan/Hydrochlorothiazide 1 tab PO DAILY 01/03/15 01/18/20 History [Losartan-Hctz 100-25 mg Tab] Aspirin [Adult Low Dose Aspirin EC] 81 mg PO QAM 09/22/17 01/18/20 History Metoprolol Tartrate [Lopressor] 25 mg PO HS 09/22/17 01/18/20 History Carbidopa-Levodopa ER 50-200Mg 1 tab PO BID 12/16/19 01/18/20 History [Sinemet CR 50-200 mg] DULoxetine HCL [Cymbalta] 60 mg PO DAILY 12/16/19 01/18/20 History Levothyroxine Sodium 100 mcg PO DAILY 12/16/19 01/18/20 History Turmeric Root Extract [Turmeric] 1,500 mg PO DAILY 12/16/19 01/18/20 History amLODIPine BESYLATE [Norvasc] 2.5 mg PO HS 12/16/19 01/18/20 History Atorvastatin [Lipitor] 40 mg PO HS 12/22/19 01/18/20 History Clopidogrel [Plavix] 75 mg PO DAILY #90 tab 12/23/19 01/18/20 Rx Nitroglycerin Sl Tabs [Nitrostat] 0.4 mg SUBLINGUAL Q5M PRN #25 tab 12/23/19 01/18/20 Rx Docusate [Colace] 100 mg PO BID PRN #30 cap 01/05/20 01/18/20 Rx Isosorbide Mononitrate ER [Imdur] 30 mg PO DAILY #30 tab.er.24h 01/05/20 01/18/20 Rx ALPRAZolam [Xanax] 1 mg PO BID PRN 01/18/20 01/18/20 History Acetaminophen [Tylenol] 650 mg PO Q6H PRN 01/18/20 01/18/20 History Allergies Allergy/AdvReac Type Severity Reaction Status Date / Time cephalexin monohydrate Allergy Unknown Verified 01/18/20 07:18 [From Keflex] Childhood morphine Allergy Itching Verified 01/18/20 07:18 Penicillins Allergy Rash/Hives Verified 01/18/20 07:18 tramadol Allergy Rash/Hives Verified 01/18/20 07:18 amlodipine besylate AdvReac Intermediate tremors Verified 01/18/20 07:18 [From [facility]] neomycin AdvReac exacerbates Verified 01/18/20 07:18 whatever skin condition using for Physical Examination On exam patient is resting comfortably in bed in no acute distress. Patient is alert and oriented. There is no tenderness to palpation over the left shoulder. No effusion, erythema or ecchymosis. Patient has limited range of motion of the left upper extremity due to pain. Sensation is intact. Neurovascular status and circulatory status are intact. Results X-rays of the left shoulder are negative for any fracture or dislocation. Mild arthritic changes noted. - Labs Labs: Abnormal Lab Results - Last 24 Hours (Table) 01/18/20 01/18/20 Range/Units 01:45 01:45 WBC 2.5 L (3.8-10.6) k/uL Plt Count 116 L (150-450) k/uL Lymphocytes # 0.4 L (1.0-4.8) k/uL Sodium 131 L (137-145) mmol/L Chloride 93 L (98-107) mmol/L Glucose 127 H (74-99) mg/dL C-Reactive Protein 56.6 H (<10.0) mg/L H & H 01/18/20 Range/Units 01:45 Hgb 12.4 (11.4-16.0) gm/dL Hct 37.0 (34.0-46.0) % Result Diagrams: 01/18/20 01:45 01/18/20 01:45 Assessment and Plan (1) Left shoulder pain Current Visit: Yes Status: Acute Code(s): M25.512 - PAIN IN LEFT SHOULDER SNOMED Code(s): 05011784 Plan: 1. X-rays are reviewed and are negative for any acute fracture or dislocation. An MRI of the left shoulder is ordered. 2. Patient is afebrile with a white count of 2.5. Low suspicion for septic arthritis at this time. 3. Continue pain control. Appreciate input from medicine. 4. No surgical intervention planned. Further recommendations pending MRI results. Will continue to follow the patient closely.
[2020-01-18] MEDS ORDERED: DOCUSATE 100 MG CAP PO PRN (13:52)
[2020-01-18] MEDS ORDERED: ACETAMINOPHEN TAB 325 MG TAB PO PRN (13:52)
[2020-01-18] MEDS ORDERED: NON FORMULARY DRUG (Losartan/Hydrochlorothiazide [Losartan-Hctz 100-25 Mg Tab] 1 TAB) PO SCH (14:00)
[2020-01-18] MEDS: HYDROcodone/APAP 7.5-325MG 1 EACH TAB PO PRN ×2 (14:33→21:33)
[2020-01-18] MEDS: LEVOTHYROXINE 100 MCG TAB PO SCH (15:13)
--- NOTE | 2020-01-18 15:14 | P.PN ---
Progress Note - Text Progress Note Date: 01/18/20 Patient seen and examined at bedside. Patient continues to have left intractable shoulder pain. Patient was evaluated by orthopedic surgery and an MRI has been ordered. Vitals temperature 98.1 orally heart rate 71 respiratory rate 18 blood pressure 150/70 oxygen saturation 97% on room air General: [non toxic], [no distress], [appears at stated age] Derm: [warm], [dry] Head: [atraumatic], [normocephalic], [symmetric] Eyes: [EOMI], [no lid lag], [anicteric sclera] Mouth: [no lip lesion], [mucus membranes moist] Cardiovascular: [S1S2 reg], [no murmur], [positive posterior tibial pulse bilateral], Lungs: [CTA bilateral], [no rhonchi, no rales] , [no accessory muscle use] Abdominal: [soft], [ nontender to palpation], [no guarding], [no appreciable organomegaly] Ext: [no gross muscle atrophy], [no edema], [no contractures] left shoulder pain with movement and palpation Neuro: [ CN II-XI grossly intact], [no focal neuro deficits] Psych: [Alert], [oriented], [appropriate affect] Assessment/plan: Left intractable shoulder pain -Orthopedic surgery recommendations appreciated -Pain control provided -Continue IV antibiotics Resume home medications for chronic conditions GI DVT prophylaxis A.m. labs
[2020-01-18] MEDS: LOSARTAN 50 MG TAB PO SCH (15:26)
[2020-01-18] MEDS: FAMOTIDINE 20 MG TAB PO SCH (15:26)
[2020-01-18] MEDS: ISOSORBIDE MONONITRATE ER 30 MG TAB.ER.24H PO SCH (15:26)
[2020-01-18] MEDS: CLOPIDOGREL 75 MG TAB PO SCH (15:26)
[2020-01-18] MEDS: ASPIRIN 81 MG PO SCH (15:27)
[2020-01-18] MEDS: SODIUM CHLORIDE 0.9% 1,000 ML IV SCH (15:27)
--- NOTE | 2020-01-18 15:33 | MR ---
EXAMINATION TYPE: MR shoulder LT wo con DATE OF EXAM: 01/18/2020 COMPARISON: Left shoulder radiographs 01/18/2020 HISTORY: 84-year-old female with left shoulder pain, possible septic joint TECHNIQUE: Multiplanar, multisequence imaging of the left shoulder is performed without contrast. FINDINGS: The exam is motion degraded. The technologist notes that the patient was in extreme pain resulting in motion. Long head biceps tendon is seen along the bicipital groove. The intracapsular portion is largely obsc ured by motion but no jens retracted tear is identified. Diffuse thickening of the subscapularis tendon. The majority of the tendon appears intact. Diffuse thickening of both supraspinatus and infraspinatus tendons. Muscle edema of the supraspinatus . There is a full-thickness tear defect of the posterior supraspinatus tendon fibers just proximal to the footprint measuring 1.1 cm long and 1.3 cm AP, refer to coronal image 17 and sagittal image 13. No significant fatty atrophy of the rotator cuff musculature. There is an underlying mild to joint effusion but with a large, likely complex subacromial/subdeltoid bursal effusion. Moderate degenerative change at the AC joint without significant subacromial impingement.. Degenerative spurring and some subchondral cystic change in the superior and posterior glenoid compat ible with moderate degenerative change. No Hill-Sachs deformity or os acromiale. Patchy red marrow is present and can be seen in the setting of anemia, obesity, smoking, chronic dise ase. IMPRESSION: 1. Motion degraded exam as the patient was in extreme pain. 2. Marked diffuse rotator cuff tendinosis. There is a full-thickness tear defect of the posterior sup raspinatus tendon measuring 1.3 x 1.1 cm. Edema in the supraspinatus muscle probably reactive to the tear. No significant muscle atrophy. 3. Moderate glenohumeral and AC joint OA. 4. While there is only a small glenohumeral joint effusion, there is a large, mildly complex subacrom ial/subdeltoid bursal effusion. This effusion is out of proportion to the patient's rotator cuff tear . Percutaneous aspiration can be performed if concern for septic bursitis.
[2020-01-18] MEDS: DULoxetine HCL 60 MG CAPSULE.DR PO SCH (16:31)
[2020-01-18] MEDS: HEPARIN SODIUM,PORCINE 5,000 UNIT/ML 1 ML VIAL SQ SCH ×2 (17:22→23:24)
[2020-01-18] MEDS ORDERED: VANCOMYCIN 1,250 MG in SODIUM CHLORIDE 0.9% 250 ML IVPB SCH (20:00)
[2020-01-18] MEDS: ATORVASTATIN 40 MG TAB PO SCH (20:31)
[2020-01-18] MEDS: METOPROLOL TARTRATE 25 MG TAB PO SCH (20:31)
[2020-01-18] MEDS: CARBIDOPA-LEVODOPA ER 50-200MG 1 EACH TABLET.ER PO SCH (21:09)
[2020-01-19] MEDS: HYDROmorphone 0.5 MG/0.5 ML SYRINGE IVP PRN ×5 (03:35→17:26)
[2020-01-19] MEDS: SODIUM CHLORIDE 0.9% 1,000 ML IV SCH ×2 (03:35→17:30)
[2020-01-19] MEDS ORDERED: LEVOFLOXACIN 500MG-D5W PMX 500 MG in DEXTROSE/WATER 1 100ML.BAG IVPB SCH (04:00)
[2020-01-19] MEDS ORDERED: VANCOMYCIN 1,000 MG in SODIUM CHLORIDE 0.9% 250 ML IVPB SCH (05:00)
[2020-01-19] MEDS: HYDROcodone/APAP 7.5-325MG 1 EACH TAB PO PRN ×3 (05:03→19:34)
[2020-01-19] MEDS: LEVOTHYROXINE 100 MCG TAB PO SCH (05:03)
[2020-01-19] MEDS: FAMOTIDINE 20 MG TAB PO SCH (07:39)
[2020-01-19] MEDS: HEPARIN SODIUM,PORCINE 5,000 UNIT/ML 1 ML VIAL SQ SCH ×2 (07:39→17:26)
[2020-01-19] MEDS: ASPIRIN 81 MG PO SCH (07:39)
[2020-01-19] MEDS: LOSARTAN 50 MG TAB PO SCH (07:39)
[2020-01-19] MEDS: DULoxetine HCL 60 MG CAPSULE.DR PO SCH (07:39)
[2020-01-19] MEDS: CLOPIDOGREL 75 MG TAB PO SCH (07:39)
[2020-01-19 07:40] LABS: Basophils % (A) 1 %; Eosinophils % (A) 1 %; HCT 30.5 % (34.0-46.0); HGB 10.1 gm/dL (11.4-16.0); Lymphocytes # (A) 0.6 k/uL (1.0-4.8); Lymphocytes % (A) 23 %; MCH 28.9 pg (25.0-35.0); MCHC 32.9 g/dL (31.0-37.0); MCV 87.8 fL (80.0-100.0); Monocytes # (A) 0.3 k/uL (0-1.0); Monocytes % (A) 14 %; Neutrophils # (A) 1.4 k/uL (1.3-7.7); Neutrophils % (A) 57 %; Platelet Count 110 k/uL (150-450); RBC 3.47 m/uL (3.80-5.40); RDW 12.7 % (11.5-15.5); WBC 2.4 k/uL (3.8-10.6)
[2020-01-19] MEDS: ISOSORBIDE MONONITRATE ER 30 MG TAB.ER.24H PO SCH (07:40)
[2020-01-19] MEDS: CARBIDOPA-LEVODOPA ER 50-200MG 1 EACH TABLET.ER PO SCH ×2 (07:40→20:09)
[2020-01-19 07:52] LABS: ALT <6 U/L (4-34); AST 22 U/L (14-36); African American GFR (CKD) 85 (>60 ml/min/1.73 sqM); Alkaline Phosphatase 60 U/L (38-126); Anion Gap 7 mmol/L; Blood Urea Nitrogen 12 mg/dL (7-17); Calcium 8.2 mg/dL (8.4-10.2); Carbon Dioxide 28 mmol/L (22-30); Chloride 96 mmol/L (98-107); Glucose 120 mg/dL (74-99); Magnesium 1.5 mg/dL (1.6-2.3); Non-African American GFR(CKD) 74 (>60 ml/min/1.73 sqM); Potassium 3.9 mmol/L (3.5-5.1); Sodium 131 mmol/L (137-145); Total Protein 5.1 g/dL (6.3-8.2)
[2020-01-19] MEDS ORDERED: LIDOCAINE 1% INJ 10MG/ML (20 ML MDV) SQ ONE ×2 (08:03→09:00)
[2020-01-19] MEDS ORDERED: LIDOCAINE 1% INJ 10MG/ML (20 ML MDV) ONE (08:55)
[2020-01-19] MEDS ORDERED: TURMERIC ROOT EXTRACT 1500 MG PO SCH (09:00)
--- NOTE | 2020-01-19 09:24 | P.PN ---
Subjective Progress Note Date: 01/19/20 This is an 84-year-old female who is admitted for evaluation of left shoulder pain 2 weeks. Patient states that her pain is slightly improved today, but still painful with any attempt at range of motion. Patient states that she has continued swelling in both hands today. Patient denies any new complaints today. The patient's daughter is also present in the room this morning. Objective - Vital Signs Vital signs: Vital Signs Temp 98.7 F 01/19/20 04:16 Pulse 80 01/19/20 04:16 Resp 15 01/19/20 04:16 BP 115/57 01/19/20 04:16 Pulse Ox 98 01/19/20 04:16 Intake & Output 01/18/20 01/19/20 01/19/20 18:59 06:59 18:59 Intake Total 905 1850 Output Total 200 Balance 905 1650 Weight 65.771 kg Intake: Intake, IV Titration 325 1250 Amount Levofloxacin 500Mg-D5w 100 Pmx 500 mg In Dextrose/ Water 1 100ml.bag @ 100 mls/hr IVPB Q24H [facility] Rx#: [id number] Sodium Chloride 0.9% 1, 75 900 000 ml @ 75 mls/hr IV . [id number] [facility] Rx#:[id number] Vancomycin 1,250 mg In 250 250 Sodium Chloride 0.9% 250 ml @ 125 mls/hr IVPB Q18H [facility] Rx#:[id number] Oral 580 600 Output: Urine 200 Other: Voiding Method Toilet Diaper Diaper Incontinent Incontinent # Voids 2 1 - Exam On exam patient is resting comfortably in bed in no acute distress. There is mild tenderness to palpation over the left shoulder. There is no erythema and skin is intact. Patient has limited range of motion of the left shoulder due to pain. Sensation intact. Swelling of bilateral hands, right worse than left. Neurovascular status and circulatory status are intact. - Labs CBC & Chem 7: 01/19/20 07:00 01/19/20 07:00 Labs: Abnormal Lab Results - Last 24 Hours (Table) 01/19/20 01/19/20 Range/Units 07:00 07:00 WBC 2.4 L (3.8-10.6) k/uL RBC 3.47 L (3.80-5.40) m/uL Hgb 10.1 L (11.4-16.0) gm/dL Hct 30.5 L (34.0-46.0) % Plt Count 110 L (150-450) k/uL Lymphocytes # 0.6 L (1.0-4.8) k/uL Sodium 131 L (137-145) mmol/L Chloride 96 L (98-107) mmol/L Glucose 120 H (74-99) mg/dL Calcium 8.2 L (8.4-10.2) mg/dL Magnesium 1.5 L (1.6-2.3) mg/dL Total Protein 5.1 L (6.3-8.2) g/dL Albumin 3.0 L (3.5-5.0) g/dL Microbiology - Last 24 Hours (Table) 01/18/20 01:45 Blood Culture - Preliminary Blood No Growth after 24 hours Assessment and Plan (1) Left shoulder pain Current Visit: Yes Status: Acute Code(s): M25.512 - PAIN IN LEFT SHOULDER SNOMED Code(s): 65339899 Plan: MRI is reviewed revealin. Motion degraded exam as the patient was in extreme pain. 2. Marked diffuse rotator cuff tendinosis. There is a full-thickness tear defect of the posterior supraspinatus tendon measuring 1.3 x 1.1 cm. Edema in the supraspinatus muscle probably reactive to the tear. No significant muscle atrophy. 3. Moderate glenohumeral and AC joint OA. 4. While there is only a small glenohumeral joint effusion, there is a large, mildly complex subacromial/subdeltoid bursal effusion. This effusion is out of proportion to the patient's rotator cuff tear. Percutaneous aspiration can be performed if concern for septic bursitis. 1.Bedside aspiration of the left shoulder is performed today under sterile technique after patient consent. The left shoulder was prepped with ChloraPrep and anesthetized with approximately 4 mL of 1% lidocaine. Then an 18-gauge needle is used to aspirate the left shoulder. 2 mL of blood is obtained. Patient tolerated the procedure well. 2. Culture of left shoulder aspirate is pending. 3. Patient remains afebrile and white blood cell count is 2.4 today. Patient is well appearing. Low suspicion for septic bursitis/arthritis. 4. No surgical intervention planned. Will continue to follow the patient closely.
[2020-01-19] MEDS: VANCOMYCIN 1,250 MG in SODIUM CHLORIDE 0.9% 250 ML IVPB SCH (11:06)
--- NOTE | 2020-01-19 11:30 | P.PN ---
Subjective Progress Note Date: 01/19/20 Principal diagnosis: Intractable left shoulder pain Patient seen and examined at bedside. She shouldn't continues to have left shoulder pain. Patient denies chest pain, shortness of breath, nausea, vomiting, fever, or chills. MRI of the left shoulder reveals diffuse thickening of both supraspinatus and infraspinatus tendons. Diffuse thickening of the subscapularis tendon. Muscle edema of the supraspinatus. There is a full-thickness tear defect of the posterior supraspinatus tendon fibers just proximal to the footprint measuring 1.1 cm long and 1.3 cm AP. There is an underlying mild to moderate joint effusion with a large likely complex subacromial/subdeltoid bursal effusion. This effusion is out of proportion to the patient's rotated tater cuff tear. Percutaneous aspiration can be performed if concern for septic bursitis. Moderate degenerative changes at the glenoidohumeral and AC joint with out significant impingement. Objective - Vital Signs Vital signs: Vital Signs Temp 98.7 F 01/19/20 04:16 Pulse 80 01/19/20 04:16 Resp 15 01/19/20 04:16 BP 115/57 01/19/20 04:16 Pulse Ox 98 01/19/20 04:16 Intake & Output 01/18/20 01/19/20 01/19/20 18:59 06:59 18:59 Intake Total 905 1850 Output Total 200 Balance 905 1650 Weight 65.771 kg Intake: Intake, IV Titration 325 1250 Amount Levofloxacin 500Mg-D5w 100 Pmx 500 mg In Dextrose/ Water 1 100ml.bag @ 100 mls/hr IVPB Q24H [facility] Rx#: [id number] Sodium Chloride 0.9% 1, 75 900 000 ml @ 75 mls/hr IV . [id number] [facility] Rx#:[id number] Vancomycin 1,250 mg In 250 250 Sodium Chloride 0.9% 250 ml @ 125 mls/hr IVPB Q18H [facility] Rx#:[id number] Oral 580 600 Output: Urine 200 Other: Voiding Method Toilet Diaper Diaper Incontinent Incontinent # Voids 2 1 - Exam General: [non toxic], [no distress], [appears at stated age] Derm: [warm], [dry] Head: [atraumatic], [normocephalic], [symmetric] Eyes: [EOMI], [no lid lag], [anicteric sclera] Mouth: [no lip lesion], [mucus membranes moist] Cardiovascular: [S1S2 reg], [no murmur], [positive posterior tibial pulse bilateral], Lungs: [CTA bilateral], [no rhonchi, no rales] , [no accessory muscle use] Abdominal: [soft], [ nontender to palpation], [no guarding], [no appreciable organomegaly] Ext: [Left shoulder pain with palpation with decreased range of motion], [no edema], [no contractures] Neuro: [ CN II-XI grossly intact], [no focal neuro deficits] Psych: [Alert], [oriented], [appropriate affect] - Labs CBC & Chem 7: 01/19/20 07:00 01/19/20 07:00 Labs: Abnormal Lab Results - Last 24 Hours (Table) 01/19/20 01/19/20 Range/Units 07:00 07:00 WBC 2.4 L (3.8-10.6) k/uL RBC 3.47 L (3.80-5.40) m/uL Hgb 10.1 L (11.4-16.0) gm/dL Hct 30.5 L (34.0-46.0) % Plt Count 110 L (150-450) k/uL Lymphocytes # 0.6 L (1.0-4.8) k/uL Sodium 131 L (137-145) mmol/L Chloride 96 L (98-107) mmol/L Glucose 120 H (74-99) mg/dL Calcium 8.2 L (8.4-10.2) mg/dL Magnesium 1.5 L (1.6-2.3) mg/dL Total Protein 5.1 L (6.3-8.2) g/dL Albumin 3.0 L (3.5-5.0) g/dL Microbiology - Last 24 Hours (Table) 01/18/20 01:45 Blood Culture - Preliminary Blood No Growth after 24 hours Assessment and Plan Assessment: 1. Intractable left shoulder pain secondary to full-thickness rotator cuff tear with concern for septic bursitis. Shoulder was aspirated this morning by orthopedic surgery Cultures are pending Continue IV antibiotic Pain control 2. Hypertension controlled Continue current medications 3. Hyperlipidemia Continue statin 4. Hypothyroid Continue levothyroxine 5. GI DVT prophylaxis 4. A.m. labs
[2020-01-19] MEDS: ATORVASTATIN 40 MG TAB PO SCH (20:08)
[2020-01-19] MEDS: METOPROLOL TARTRATE 25 MG TAB PO SCH (20:09)
[2020-01-20] MEDS: HEPARIN SODIUM,PORCINE 5,000 UNIT/ML 1 ML VIAL SQ SCH ×2 (00:13→08:14)
[2020-01-20] MEDS: HYDROmorphone 0.5 MG/0.5 ML SYRINGE IVP PRN ×3 (00:15→08:15)
[2020-01-20] MEDS: HYDROcodone/APAP 7.5-325MG 1 EACH TAB PO PRN ×2 (02:33→13:08)
[2020-01-20] MEDS: VANCOMYCIN 1,250 MG in SODIUM CHLORIDE 0.9% 250 ML IVPB SCH (03:39)
[2020-01-20] MEDS: SODIUM CHLORIDE 0.9% 1,000 ML IV SCH (03:41)
[2020-01-20 04:50] VITALS: TEMP 98.8
[2020-01-20] MEDS: LEVOTHYROXINE 100 MCG TAB PO SCH (05:20)
[2020-01-20] MEDS: FAMOTIDINE 20 MG TAB PO SCH (08:14)
[2020-01-20] MEDS: CLOPIDOGREL 75 MG TAB PO SCH (08:14)
[2020-01-20] MEDS: ASPIRIN 81 MG PO SCH (08:14)
[2020-01-20] MEDS: CARBIDOPA-LEVODOPA ER 50-200MG 1 EACH TABLET.ER PO SCH (08:14)
[2020-01-20] MEDS: DULoxetine HCL 60 MG CAPSULE.DR PO SCH (08:14)
[2020-01-20] MEDS: ISOSORBIDE MONONITRATE ER 30 MG TAB.ER.24H PO SCH (08:15)
[2020-01-20] MEDS: LOSARTAN 50 MG TAB PO SCH (08:15)
[2020-01-20 08:30] LABS: Calcium 8.3 mg/dL (8.4-10.2); Potassium 4.2 mmol/L (3.5-5.1)
[2020-01-20 08:40] LABS: Basophils % (A) 1 %; Eosinophils % (A) 3 %; HCT 31.1 % (34.0-46.0); HGB 10.2 gm/dL (11.4-16.0); Lymphocytes # (A) 0.5 k/uL (1.0-4.8); Lymphocytes % (A) 36 %; MCH 28.9 pg (25.0-35.0); MCHC 32.9 g/dL (31.0-37.0); MCV 87.7 fL (80.0-100.0); Mean Platelet Volume 7.2; Monocytes # (A) 0.3 k/uL (0-1.0); Monocytes % (A) 17 %; Neutrophils # (A) 0.6 k/uL (1.3-7.7); Neutrophils % (A) 40 %; Platelet Count 104 k/uL (150-450); RBC 3.55 m/uL (3.80-5.40); RDW 12.5 % (11.5-15.5); WBC 1.5 k/uL (3.8-10.6)
[2020-01-20] MEDS ORDERED: LEVOFLOXACIN 500 MG TAB PO SCH (09:00)
--- NOTE | 2020-01-20 09:21 | P.DS ---
Providers Date of admission: 01/19/20 13:10 Attending physician: Fabio Arzola MD Consults: 01/18/20 03:28 Consult Physician Urgent Consulting Provider: [facility] Consult Reason/Comments: left shoulder pain, concern for septic joint Do you want consulting provider notified?: Yes, Notify in am Primary care physician: [facility] Course: Admitting diagnoses: 1. Intractable left shoulder pain possible septic arthritis secondary to recent UTI 2. UTI 3. Hypertension 4. Coronary artery disease 5. Hyperlipidemia Discharge diagnoses: 1. Intractable left shoulder pain 2. Torn rotator cuff with bursitis 3. UTI 4. Hypertension 5. Coronary artery disease 6. Hyperlipidemia Patient seen and examined at bedside. Patient's left shoulder pain has slightly improved since her shoulder was aspirated yesterday. Patient continues to have minimal range of motion of her left shoulder. Orthopedic surgery decided not to do any surgical intervention at this time. She'll follow up as an outpatient. MRI of the left shoulder reveals diffuse thickening of both supraspinatus and infraspinatus tendons. Diffuse thickening of the subscapularis tendon. Muscle edema of the supraspinatus. There is a full-thickness tear defect of the posterior supraspinatus tendon fibers just proximal to the footprint measuring 1.1 cm long and 1.3 cm AP. There is an underlying mild to moderate joint effusion with a large likely complex subacromial/subdeltoid bursal effusion. This effusion is out of proportion to the patient's rotated tater cuff tear. Percutaneous aspiration can be performed if concern for septic bursitis. Moderate degenerative changes at the glenoidohumeral and AC joint with out significant impingement. Vitals: Temperature 98.8 heart rate 86 blood pressure 125 or 71 oxygen saturation 95% nasal cannula General: [non toxic], [no distress], [appears at stated age] Derm: [warm], [dry] Head: [atraumatic], [normocephalic], [symmetric] Eyes: [EOMI], [no lid lag], [anicteric sclera] Mouth: [no lip lesion], [mucus membranes moist] Cardiovascular: [S1S2 reg], [no murmur], [positive posterior tibial pulse bilateral], Lungs: [CTA bilateral], [no rhonchi, no rales] , [no accessory muscle use] Abdominal: [soft], [ nontender to palpation], [no guarding], [no appreciable organomegaly] Ext: [no gross muscle atrophy], [no edema], [no contractures] Left shoulder pain with decreasing range of motion Neuro: [ CN II-XI grossly intact], [no focal neuro deficits] Psych: [Alert], [oriented], [appropriate affect] Follow up with orthopedic surgery in 1 week With PCP in 2-7 days Activity as tolerated diet cardiac Condition fair Patient Condition at Discharge: Fair Plan - Discharge Summary Discharge Rx Participant: No New Discharge Prescriptions: No Action Losartan/Hydrochlorothiazide [Losartan-Hctz 100-25 mg Tab] 1 tab PO DAILY Metoprolol Tartrate [Lopressor] 25 mg PO HS Aspirin [Adult Low Dose Aspirin EC] 81 mg PO QAM amLODIPine BESYLATE [Norvasc] 2.5 mg PO HS DULoxetine HCL [Cymbalta] 60 mg PO DAILY Carbidopa-Levodopa ER 50-200Mg [Sinemet CR 50-200 mg] 1 tab PO BID Levothyroxine Sodium 100 mcg PO DAILY Turmeric Root Extract [Turmeric] 1,500 mg PO DAILY Atorvastatin [Lipitor] 40 mg PO HS Nitroglycerin Sl Tabs [Nitrostat] 0.4 mg SUBLINGUAL Q5M PRN #25 tab PRN Reason: Chest Pain Clopidogrel [Plavix] 75 mg PO DAILY #90 tab Docusate [Colace] 100 mg PO BID PRN #30 cap PRN Reason: Constipation Isosorbide Mononitrate ER [Imdur] 30 mg PO DAILY #30 tab.er.24h ALPRAZolam [Xanax] 1 mg PO BID PRN PRN Reason: Anxiety Acetaminophen [Tylenol] 650 mg PO Q6H PRN PRN Reason: Pain Discharge Medication List Losartan/Hydrochlorothiazide [Losartan-Hctz 100-25 mg Tab] 1 tab PO DAILY 01/03/15 [History] Aspirin [Adult Low Dose Aspirin EC] 81 mg PO QAM 09/22/17 [History] Metoprolol Tartrate [Lopressor] 25 mg PO HS 09/22/17 [History] Carbidopa-Levodopa ER 50-200Mg [Sinemet CR 50-200 mg] 1 tab PO BID 12/16/19 [History] DULoxetine HCL [Cymbalta] 60 mg PO DAILY 12/16/19 [History] Levothyroxine Sodium 100 mcg PO DAILY 12/16/19 [History] Turmeric Root Extract [Turmeric] 1,500 mg PO DAILY 12/16/19 [History] amLODIPine BESYLATE [Norvasc] 2.5 mg PO HS 12/16/19 [History] Atorvastatin [Lipitor] 40 mg PO HS 12/22/19 [History] Clopidogrel [Plavix] 75 mg PO DAILY #90 tab 12/23/19 [Rx] Nitroglycerin Sl Tabs [Nitrostat] 0.4 mg SUBLINGUAL Q5M PRN #25 tab 12/23/19 [ Rx] Docusate [Colace] 100 mg PO BID PRN #30 cap 01/05/20 [Rx] Isosorbide Mononitrate ER [Imdur] 30 mg PO DAILY #30 tab.er.24h 01/05/20 [Rx] ALPRAZolam [Xanax] 1 mg PO BID PRN 01/18/20 [History] Acetaminophen [Tylenol] 650 mg PO Q6H PRN 01/18/20 [History] Follow up Appointment(s)/Referral(s): Genevieve Alegre MD [Primary Care Provider] - 1-2 days
[2020-01-20 11:38] LABS: Poikilocytosis (M) Present
[2020-01-20 11:55] VITALS: BP 125/68; PULSE 91; RESP 17
== END 2020-01-20 13:43 | disposition home health service (06) | DRG 558 ==
LOC: EC 00:38 → 5NMEDONC 03:30 → 6NMEDSUR 01-19 07:09 → OBSVTOIN 01-19 13:10
PROVIDERS: ADMIT Internal Medicine; ATTEND Internal Medicine
PROC: 0R9K3ZX Drainage of Left Shoulder Joint, Percutaneous Approach, Diagnostic (ICD-10-PCS; principal; 2020-01-18)
DX: M75.52 Bursitis of left shoulder (principal); M75.102 Unspecified rotator cuff tear or rupture of left shoulder, not specified as traumatic; F32.9 Major depressive disorder, single episode, unspecified; E78.5 Hyperlipidemia, unspecified; E03.9 Hypothyroidism, unspecified; F41.9 Anxiety disorder, unspecified; G89.29 Other chronic pain; I10 Essential (primary) hypertension; I25.10 Atherosclerotic heart disease of native coronary artery without angina pectoris; K21.9 Gastro-esophageal reflux disease without esophagitis; M19.90 Unspecified osteoarthritis, unspecified site; M54.30 Sciatica, unspecified side; I73.00 Raynaud's syndrome without gangrene; Z79.02 Long term (current) use of antithrombotics/antiplatelets; Z79.82 Long term (current) use of aspirin; Z79.890 Hormone replacement therapy; Z79.899 Other long term (current) drug therapy; Z88.1 Allergy status to other antibiotic agents; Z88.5 Allergy status to narcotic agent; Z88.0 Allergy status to penicillin; Z88.8 Allergy status to other drugs, medicaments and biological substances; Z87.01 Personal history of pneumonia (recurrent); Z87.440 Personal history of urinary (tract) infections; Z90.49 Acquired absence of other specified parts of digestive tract; Z95.5 Presence of coronary angioplasty implant and graft; Z98.890 Other specified postprocedural states; Z90.710 Acquired absence of both cervix and uterus; Z85.72 Personal history of non-Hodgkin lymphomas; Z83.3 Family history of diabetes mellitus; Z80.6 Family history of leukemia; Z80.49 Family history of malignant neoplasm of other genital organs; Z80.1 Family history of malignant neoplasm of trachea, bronchus and lung; Z86.69 Personal history of other diseases of the nervous system and sense organs; Z92.21 Personal history of antineoplastic chemotherapy
CPT/HCPCS: 36415; 80048; 80053; 83735; 84443; 85025; 86140; 87040; 87070; 87205; 96365; 96366; 96367; 96375; 96376; 99285

== ENCOUNTER → 2020-06-07 | Outpatient (CLI) | payer MEDICARE ==
[2020-06-07 09:28] VITALS: BP 134/74; PULSE 74; RESP 18; TEMP 97.9
--- NOTE | 2020-06-07 21:15 | P.PAINCN ---
History of Present Illness - Reason for Consult Consult date: 06/07/20 - History of Present Illness This is a 54 years old female with a chronic history of severe low back pain started more than 10 years ago, intensity of the pain increased significantly 4 months ago after she fell, the pain is constant and increases with any activity interfere with the quality of life, she denies any motor or sensory deficit she denies any fever or night sweats and no change in the bowel movement or urinat ion, pain is constant and the low back area, and Achilles bilaterally. 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/ finished chemo in September 2014, urinary incontinence, frequent UTI's, neuropathy in bilateral hands and feet, History of Any Multi-Drug Resistant Organisms: None Reported Past Surgical History: Appendectomy, Cholecystectomy, Heart Catheterization, Heart Catheterization With Stent, Hysterectomy, Orthopedic Surgery Additional Past Surgical History / Comment(s): 12/22/19 PCI with stent to LAD, partial thyroidectomy, mediport insertion/removal, bilateral carpal tunnel releases Past Anesthesia/Blood Transfusion Reactions: No Reported Reaction Date of Last Stent Placement:: 12/22/19 Smoking Status: Never smoker - Past Family History Father Family Medical History: Cancer Additional Family Medical History / Comment(s): HEAVY SMOKER AND WAS A PLANT CONTROL OPERATOR, FROM LUNG CANCER. Mother Family Medical History: Diabetes Mellitus Brother(s) Family Medical History: Cancer Additional Family Medical History / Comment(s): Cerebral hemorrhage, Leukemia. Daughter(s) Family Medical History: Cancer Additional Family Medical History / Comment(s): Uterine Cancer. Medications and Allergies Home Medications Medication Instructions Recorded Confirmed Type Losartan/Hydrochlorothiazide 1 tab PO DAILY 01/03/15 06/07/20 History [Losartan-Hctz 100-25 mg Tab] Aspirin [Adult Low Dose Aspirin EC] 81 mg PO QAM 09/22/17 06/07/20 History Metoprolol Tartrate [Lopressor] 25 mg PO HS 09/22/17 06/07/20 History Carbidopa-Levodopa ER 50-200Mg 1 tab PO BID 12/16/19 06/07/20 History [Sinemet CR 50-200 mg] DULoxetine HCL [Cymbalta] 60 mg PO DAILY 12/16/19 06/07/20 History Levothyroxine Sodium 100 mcg PO DAILY 12/16/19 06/07/20 History amLODIPine BESYLATE [Norvasc] 2.5 mg PO HS 12/16/19 06/07/20 History Atorvastatin [Lipitor] 40 mg PO HS 12/22/19 06/07/20 History Clopidogrel [Plavix] 75 mg PO DAILY #90 tab 12/23/19 06/07/20 Rx ALPRAZolam [Xanax] 1 mg PO BID PRN 01/18/20 06/07/20 History HYDROcodone/APAP 7.5-325MG [[place] 1 each PO Q6H PRN 7 Days #28 tab 01/20/20 06/07/20 Rx 7.5-325] Ibuprofen 200 - 800 mg PO Q8H PRN 06/05/20 06/07/20 History Allergies Allergy/AdvReac Type Severity Reaction Status Date / Time cephalexin monohydrate Allergy Unknown Verified 06/05/20 16:04 [From Keflex] Childhood morphine Allergy Itching Verified 06/05/20 16:04 Penicillins Allergy Rash/Hives Verified 06/05/20 16:04 tramadol Allergy Rash/Hives Verified 06/05/20 16:04 amlodipine besylate AdvReac Intermediate tremors Verified 06/05/20 16:04 [From Norvasc] neomycin AdvReac exacerbates Verified 06/05/20 16:04 whatever skin condition using for Physical Exam Vitals: Vital Signs Temp Pulse Resp BP Pulse Ox 06/07/20 09:20 97.9 F 74 18 134/74 99 Physical Examinations : -Constitutiona : Cooperative , not in acute distress . -HEENT : nech : supple , no Lymphadenopathy , normal thyroid size . : eyes : no ptosis , no icterus, no photophobia . - neurologic : Cranial nerve II to XII intact , no focal neurological deffecit . -psychatric : alert , oriented X 3 , appropriate affect , intact judgment and insight . -Lymphatic : no Lymphadenopathy . - musculoskeltal : Lumber spine moter stegnth lower extremities ,thigh and legs 5/5 Right side , 5/5 Left side deep tendon reflexes : normal Knee Jerk , normal ankle Jerk lumber facet Loading Test =positive Right , posiutive Left Range of motion of the lumbar spine Flexion 30 degrees, extension 10 degrees strait leg raising test = positive at 30 degree Fabere test= positive Right , and positive LT . tenderness over the Sacroiliac joint on the Right , and Left sides Results Comments: Computed tomography scan of the lumbar spine reviewed that showed multilevel lumbar degenerative disc disease multilevel lumbar spondylosis, Severe spinal stenosis Assessment and Plan Plan: Assessment and plan=-lumbar spondylosis with lumbar facet arthropathy without myelopathy Lumbar degenerative disc disease Lumbar spinal stenosis. Patient with a good candidate to have diagnostic medial branch block lumbar area at L3 ,L4 ,and L5 x2 and possible RFA Time with Patient: Greater than 30 PQRS Measure Charge Sheet Measure #130: Documentation of Current Meds in Medical Chart: Patient's medicati ons documented in chart Measure #226: Tobacco Use: Screen & Cessation Intervention: Pt not a tobacco user Measure #111: Pneumonia Vaccination: Pneumococcal vaccine administered or previously received Measure #47: Advance Care Plan: Advance care planning discussed & documented, pt chose/unable to give Measure #412: Opioid Treatment Agreement: No documentation of signed opioid treatment agreement Measure #408: Opioid Therapy Follow-up Evaluation: Patient had NO f/u eval mi nimum every 3 months during opioid therapy Measure #317: Preventitive Care & Scrn High Bld Press & F/U: Normal blood pressure, f/u not required Measure #128: Body Mass Index (BMI) Screening & Follow-up: BMI documented within normal parameters Measure #131: Pain Assessment & Follow-up: Pain positive & plan documented, Follow-up scheduled Measure #431: Unhealthy Alcohol Use Preventative Care & Scrn: Patient not identified as an unhealthy alcohol user PQRS Narrative: Smoking Status Never smoker Blood Pressure 134/74 Pain Intensity [Back] 7 Scale Used Numeric (1 - 10) Hx Alcohol Use (MH) No Home Medications: Ambulatory Orders Losartan/Hydrochlorothiazide [Losartan-Hctz 100-25 mg Tab] 1 tab PO DAILY 01/03/15 Aspirin [Adult Low Dose Aspirin EC] 81 mg PO QAM 09/22/17 Metoprolol Tartrate [Lopressor] 25 mg PO HS 09/22/17 Carbidopa-Levodopa ER 50-200Mg [Sinemet CR 50-200 mg] 1 tab PO BID 12/16/19 DULoxetine HCL [Cymbalta] 60 mg PO DAILY 12/16/19 Levothyroxine Sodium 100 mcg PO DAILY 12/16/19 amLODIPine BESYLATE [Norvasc] 2.5 mg PO HS 12/16/19 Atorvastatin [Lipitor] 40 mg PO HS 12/22/19 Clopidogrel [Plavix] 75 mg PO DAILY #90 tab 12/23/19 ALPRAZolam [Xanax] 1 mg PO BID PRN 01/18/20 HYDROcodone/APAP 7.5-325MG [[place] 7.5-325] 1 each PO Q6H PRN 7 Days #28 tab 01/20/20 Ibuprofen 200 - 800 mg PO Q8H PRN 06/05/20
== END | disposition home or self-care (01) ==
LOC: PNWHC3 09:14
PROVIDERS: ATTEND Specialist
DX: M47.816 Spondylosis without myelopathy or radiculopathy, lumbar region (principal); E78.5 Hyperlipidemia, unspecified; K21.9 Gastro-esophageal reflux disease without esophagitis; I25.10 Atherosclerotic heart disease of native coronary artery without angina pectoris; I10 Essential (primary) hypertension; G47.33 Obstructive sleep apnea (adult) (pediatric); E07.9 Disorder of thyroid, unspecified; Z79.82 Long term (current) use of aspirin; Z79.899 Other long term (current) drug therapy; Z79.890 Hormone replacement therapy; Z88.5 Allergy status to narcotic agent; Z88.0 Allergy status to penicillin; Z88.1 Allergy status to other antibiotic agents; Z90.49 Acquired absence of other specified parts of digestive tract; Z99.89 Dependence on other enabling machines and devices; Z79.02 Long term (current) use of antithrombotics/antiplatelets
CPT/HCPCS: 99211

== ENCOUNTER 2020-06-23 06:15 | Day surgery (SDC) | payer MEDICARE ==
[2020-06-22 12:01] VITALS: BMI 25.0
[~2020-06-23 06:15] MED LIST changes: -ALPRAZolam 0.25 MG TAB PO PRN; -ALPRAZolam 0.5 MG TAB PO PRN; -ASPIRIN 325 MG TAB PO ONE; +LACTATED RINGERS 1,000 ML IV SCH; +MIDAZOLAM 2 MG/2 ML VIAL IV PRN; -NITROGLYCERIN SL TABS 0.4 MG TAB SUBLINGUAL PRN; -SODIUM CHLORIDE 0.9% 1,000 ML in EMPTY BAG 1 BAG IV ONE
[2020-06-23] MEDS ORDERED: ONDANSETRON 4 MG/2 ML VIAL ONE (06:42)
[2020-06-23] MEDS ORDERED: LIDOCAINE 1% (10MG/ML) FOR IV START INTRADERMA ONE (06:47)
[2020-06-23] MEDS ORDERED: ONDANSETRON 4 MG/2 ML VIAL IVP ONE (06:48)
[2020-06-23 06:52] VITALS: RESP 16; TEMP 97.5
[2020-06-23] MEDS ORDERED: fentaNYL (PF) 50 MCG/ML 2 ML AMP IV PRN (07:00)
[2020-06-23] MEDS ORDERED: ROPIVACAINE 5MG/ML 20ML VIAL ONE (07:02)
[2020-06-23] MEDS ORDERED: fentaNYL (PF) 50 MCG/ML 2 ML AMP ONE (07:02)
[2020-06-23] MEDS ORDERED: methylPREDNISolone ACETATE 40 MG/ML 1 ML VIAL ONE (07:02)
[2020-06-23] MEDS ORDERED: MIDAZOLAM 2 MG/2 ML VIAL ONE (07:02)
--- NOTE | 2020-06-23 07:19 | P.PCN ---
Date of Procedure: 06/23/20 Procedure(s) Performed: PREOPERATIVE DIAGNOSIS : 1- Lumbar spondylosis with Facet Arthropathy without myelopathy . 2- Lumber degenerative disc disease. 3-lumbar spinal stenosis POSTOPERATIVE DIAGNOSIS: 1- Lumbar spondylosis with Facet Arthropathy without myelopathy . 2- Lumber degenerative disc disease. 3-lumbar spinal stenosis PROCEDURE: Diagnostic bilateral L3 , L4 , and L5 medial branch block under fluoroscopy guidance(fluoroscopy images available in the radiology Department ) ( To target the facet joint between L4-5 , and L5-S1 ) #1first ANESTHESIA: Monitored anesthesia care ( as per anesthesia department ) EBL: Minimal COMPLICATION: None PROCEDURE INDICATION: Chronic low back pain secondary to Facet arthropathy unresponsive to conservative treatment. PROCEDURE DESCRIPTION: the patient was seen and identified in the preop holding area , risks and benefits and possible complications of the procedure and alternative were discussed with the patient, and the patient agreed to proceed with the procedure and signed the consent and vital signs monitored during the procedure and fluoroscopy was used to maximize the benefit and accuracy of the needle placement, and sedation was given to decrease patient anxiety, patient was taken to the procedure room and placed in prone position vital signs monitored in the back prepped with chlorhexidine X3 then under strict sterile technique using a right oblique fluoroscopy ,the junction of the transverse process and the superior articulating process of the right L3 , L4 , and L5 vertebra which corresponding to the fluoroscopy image of the eye of the Epi dog on the block side for the medial branches and subsequently , after local infiltration of skin and subcu tissuies with Ropivacaine 0.5 % , one mL at each level ,then 22-gauge Quincke-type needles , 3 needle was used , each one of them placed at the junction of the base of the transverse process and the superior articular process at the appropriate level, and the needle was advanced until the periosteum contacted, needle placement confirmed with AP oblique and lateral view and after appropriate needle placement confirmed, and after negative aspiration for heme and CSF and there was no paresthesia 1-1/2 mL of Ropivacaine 0.5% mixed with 20 mg Depo-Medrol , then half mL injected at each level after negative aspiration the needle subsequently removed and the same procedure repeated for the left side at left side at L3 , L4 and L5 levels. At the end of the procedure and the needles removed and a bandage applied after the skin was cleaned the cleaning solution patient taken to recovery room in stable condition and monitors in the recovery room for 20-30 minutes and discharged home in stable condition after discharge criteria met and patient will follow up with the pain clinic in 2-4 weeks
[2020-06-23] MEDS ORDERED: IV FLUID CONTINUATION 700 ML IV ONE (07:27)
[2020-06-23 07:42] VITALS: BP 123/60; PULSE 72
--- NOTE | 2020-06-23 08:16 | FL ---
EXAMINATION TYPE: FL guided pain mgmt statistic DATE OF EXAM: 06/23/2020 CLINICAL HISTORY: Low back pain. TECHNIQUE: Fluoroscopy. COMPARISON: None. FINDINGS: Fluoroscopic guidance was provided during pain relief procedure performed by Dr. Madden . A total of 7 seconds of fluoroscopic time was utilized during the procedure and four spot images a re acquired. Images acquired shows needle localization at multiple levels in the lumbar spine. IMPRESSION: As Above.
== END 2020-06-23 07:58 | disposition home or self-care (01) ==
LOC: ORPAIN 06:15
PROVIDERS: ATTEND Specialist
DX: G89.29 Other chronic pain (principal); M47.816 Spondylosis without myelopathy or radiculopathy, lumbar region; M51.36 Other intervertebral disc degeneration, lumbar region; M48.061 Spinal stenosis, lumbar region without neurogenic claudication; I10 Essential (primary) hypertension; K21.9 Gastro-esophageal reflux disease without esophagitis; E78.5 Hyperlipidemia, unspecified; R32 Unspecified urinary incontinence; G62.9 Polyneuropathy, unspecified; E89.0 Postprocedural hypothyroidism; I25.10 Atherosclerotic heart disease of native coronary artery without angina pectoris; G47.33 Obstructive sleep apnea (adult) (pediatric); Z91.81 History of falling; Z79.891 Long term (current) use of opiate analgesic; Z85.72 Personal history of non-Hodgkin lymphomas; Z92.21 Personal history of antineoplastic chemotherapy; Z99.89 Dependence on other enabling machines and devices; Z86.2 Personal history of diseases of the blood and blood-forming organs and certain disorders involving the immune mechanism; Z87.440 Personal history of urinary (tract) infections; Z90.49 Acquired absence of other specified parts of digestive tract; Z98.890 Other specified postprocedural states; Z95.5 Presence of coronary angioplasty implant and graft; Z90.710 Acquired absence of both cervix and uterus; Z79.899 Other long term (current) drug therapy; Z79.890 Hormone replacement therapy; Z79.02 Long term (current) use of antithrombotics/antiplatelets; Z79.1 Long term (current) use of non-steroidal anti-inflammatories (NSAID); Z88.1 Allergy status to other antibiotic agents; Z88.5 Allergy status to narcotic agent; Z88.0 Allergy status to penicillin; Z88.8 Allergy status to other drugs, medicaments and biological substances; Z78.0 Asymptomatic menopausal state; Z80.1 Family history of malignant neoplasm of trachea, bronchus and lung; Z81.2 Family history of tobacco abuse and dependence; Z83.3 Family history of diabetes mellitus; Z80.6 Family history of leukemia; Z82.49 Family history of ischemic heart disease and other diseases of the circulatory system; Z80.49 Family history of malignant neoplasm of other genital organs
CPT/HCPCS: 64493; 64494; J2250; J1030; J2405; J3010; J2795

== ENCOUNTER → 2020-07-05 | Outpatient (CLI) | payer MEDICARE ==
[2020-07-05 11:52] VITALS: BP 139/78; PULSE 75; RESP 18; TEMP 98
--- NOTE | 2020-07-05 12:29 | P.PN ---
Subjective Progress Note Date: 07/05/20 This is a follow-up visit for this 84 years old female with a chronic history of severe low back pain she's been diagnosed with lumbar degenerative disc disease, spinal stenosis, and lumbar spondylosis with lumbar facet arthropathy, recently we have done diagnostic medial branch block lumbar area at L3, L4, L5 bilaterally Patient reported that she get 100% improvement in her pain level after the injection, and she her activity of daily livings improve significantly, she denies any motor or sensory deficit, and she is here today , evaluation after the injection Objective - Vital Signs Vital signs: Vital Signs Temp 98.0 F 07/05/20 11:50 Pulse 75 07/05/20 11:50 Resp 18 07/05/20 11:50 BP 139/78 07/05/20 11:50 Pulse Ox 97 07/05/20 11:50 - Exam Physical Examinations : -Constitutiona : Cooperative , not in acute distress . -HEENT : nech : supple , no Lymphadenopathy , normal thyroid size . : eyes : no ptosis , no icterus, no photophobia . - neurologic : Cranial nerve II to XII intact , no focal neurological deffecit . -psychatric : alert , oriented X 3 , appropriate affect , intact judgment and insight . -Lymphatic : no Lymphadenopathy . - musculoskeltal : Lumber spine moter stegnth lower extremities ,thigh and legs 5/5 Right side , 5/5 Left side deep tendon reflexes : normal Knee Jerk , normal ankle Jerk lumber facet Loading Test =positive Right , posiutive Left Range of motion of the lumbar spine Flexion 30 degrees, extension 10 degrees strait leg raising test = positive at 30 degree Fabere test= positive Right , and positive LT . tenderness over the Sacroiliac joint on the Right , and Left sides Assessment and Plan Plan: Computed tomography scan of the lumbar spine reviewed that showed multilevel lumbar degenerative disc disease multilevel lumbar spondylosis, Severe spinal stenosis Assessment and plan=-lumbar spondylosis with lumbar facet arthropathy without myelopathy Lumbar degenerative disc disease Lumbar spinal stenosis. Status post diagnostic medial branch block lumbar area at L3 ,L4 ,and L5 Patient had 100 % percent pain relief after diagnostic medial branch block, patient will be scheduled to have a second d iagnostic medial Branches block PQRS Measure Charge Sheet Measure #130: Documentation of Current Meds in Medical Chart: Patient's medications documented in chart Measure #226: Tobacco Use: Screen & Cessation Intervention: Pt not a tobacco user Measure #111: Pneumonia Vaccination: Pneumococcal vaccine administered or previously received Measure #47: Advance Care Plan: Advance care planning discussed & documented, pt chose/unable to give Measure #412: Opioid Treatment Agreement: No documentation of signed opioid treatment agreement Measure #408: Opioid Therapy Follow-up Evaluation: Patient had NO f/u eval minimum every 3 months during opioid therapy Measure #317: Preventitive Care & Scrn High Bld Press & F/U: Normal blood pressure, f/u not required Measure #128: Body Mass Index (BMI) Screening & Follow-up: BMI documented within normal parameters Measure #131: Pain Assessment & Follow-up: Pain positive & plan documented, Follow-up scheduled Measure #431: Unhealthy Alcohol Use Preventative Care & Scrn: Patient not identified as an unhealthy alcohol user PQRS Narrative: Time with Patient: Less than 30
== END | disposition home or self-care (01) ==
LOC: PNWHC3 11:37
PROVIDERS: ATTEND Specialist
DX: M48.061 Spinal stenosis, lumbar region without neurogenic claudication (principal); M51.36 Other intervertebral disc degeneration, lumbar region; M47.816 Spondylosis without myelopathy or radiculopathy, lumbar region
CPT/HCPCS: 99211

== ENCOUNTER → 2020-07-18 | Outpatient (CLI) | payer MEDICARE ==
[2020-07-18 11:50] VITALS: BP 157/80; PULSE 69; RESP 16; TEMP 98.7
--- NOTE | 2020-07-18 18:21 | P.PN ---
Subjective Progress Note Date: 07/18/20 This is a follow-up visit for this 84 years old female with a chronic history of severe low back pain ,she is diagnosed with lumbar degenerative disc disease, spinal stenosis, and lumbar spondylosis with lumbar facet arthropathy, previousley we have done diagnostic medial branch block lumbar area at L3, L4, L5 bilaterally Patient reported that she get 100% improvement in her pain level after the injection, and her activity of daily livings improve significantly, she denies any motor or sensory deficit, and she is here today , evaluation after the injection, she is currently on [place] 5/325 when necessary for pain and she is taking one to 2 tablets per day she denies any side effect of the medication, and she is here today for medication refill, she denies any side effect of the medication she denies any motor or sensory deficit, denies any change in the bowel movement or urination Objective - Vital Signs Vital signs: Vital Signs Temp 98.7 F 07/18/20 11:48 Pulse 69 07/18/20 11:48 Resp 16 07/18/20 11:48 BP 157/80 07/18/20 11:48 Pulse Ox 97 07/18/20 11:48 - Exam -Constitutiona : Cooperative , not in acute distress . -HEENT : nech : supple , no Lymphadenopathy , normal thyroid size . : eyes : no ptosis , no icterus, no photophobia . - neurologic : Cranial nerve II to XII intact , no focal neurological deffecit . -psychatric : alert , oriented X 3 , appropriate affect , intact judgment and insight . -Lymphatic : no Lymphadenopathy . - musculoskeltal : Lumber spine moter stegnth lower extremities ,thigh and legs 5/5 Right side , 5/5 Left side deep tendon reflexes : normal Knee Jerk , normal ankle Jerk lumber facet Loading Test =positive Right , posiutive Left Range of motion of the lumbar spine Flexion 30 degrees, extension 10 degrees strait leg raising test = positive at 30 degree Fabere test= positive Right , and positive LT . tenderness over the Sacroiliac joint on the Right , and Left sides Assessment and Plan Plan: Computed tomography scan of the lumbar spine reviewed that showed multilevel lumbar degenerative disc disease multilevel lumbar spondylosis, Severe spinal stenosis Assessment and plan=-lumbar spondylosis with lumbar facet arthropathy without myelopathy Lumbar degenerative disc disease Lumbar spinal stenosis. Status post diagnostic medial branch block lumbar area at L3 ,L4 ,and L5 Patient had 100 % percent pain relief after diagnostic medial branch block, patient already scheduled to have a second diagnostic medial Branches block Patient here today for medication refill patient's current prescription refill for [place] 5/325 every 12 hours when necessary, dispense 30 With 1 refill. Patient denies any side effects to the current pain medication, and medication helping the patient to do activity of daily living Narcotic consent signed and agreed and patient understood the side effects and complications of opioid treatment, Patient advised not to use all or any illicit drug while using narcotics reviewed and it was appropriate - PQRS measures = - Patient's medications are documented in the chart. -Tobacco use is negative and counseling.Given. -Patient's has received pneumococcal vaccine. -Advanced care planning discussed, patient not eligible. -Opiate contract signed. -Pain positive and follow-up visit/procedure is scheduled. -Patient's blood pressure measured [157/80 ] , and documented in the record ,and patient will follow up with the primary care. -Patient's weight was measured and body mass index [25 ] within the normal limits and counseling was done. and patient instructed to follow-up with the primary care physician. -Patient was not identified as an unhealthy alcohol user Time with Patient: Less than 30
== END | disposition home or self-care (01) ==
LOC: PNWHC3 11:23
PROVIDERS: ATTEND Anesthesiology
DX: M48.061 Spinal stenosis, lumbar region without neurogenic claudication (principal); M51.36 Other intervertebral disc degeneration, lumbar region; M47.816 Spondylosis without myelopathy or radiculopathy, lumbar region; Z79.891 Long term (current) use of opiate analgesic
CPT/HCPCS: 99211

== ENCOUNTER 2020-07-28 08:46 | Day surgery (SDC) | payer MEDICARE ==
[2020-07-26 12:45] VITALS: BMI 25.0
[~2020-07-28 08:46] MED LIST changes: -MIDAZOLAM 2 MG/2 ML VIAL IV PRN
[2020-07-28 09:03] VITALS: TEMP 97.5
[2020-07-28] MEDS ORDERED: LIDOCAINE 1% (10MG/ML) FOR IV START INTRADERMA ONE (09:17)
[2020-07-28] MEDS ORDERED: methylPREDNISolone ACETATE 40 MG/ML 1 ML VIAL ONE (09:36)
[2020-07-28] MEDS ORDERED: ROPIVACAINE 5MG/ML 20ML VIAL ONE (09:36)
[2020-07-28] MEDS ORDERED: MIDAZOLAM 2 MG/2 ML VIAL ONE (09:36)
[2020-07-28] MEDS ORDERED: fentaNYL (PF) 50 MCG/ML 2 ML AMP ONE (09:36)
--- NOTE | 2020-07-28 09:53 | P.PCN ---
Date of Procedure: 07/28/20 Procedure(s) Performed: PREOPERATIVE DIAGNOSIS : 1- Lumbar spondylosis with Facet Arthropathy without myelopathy . 2- Lumber degenerative disc disease. 3-lumbar spinal stenosis POSTOPERATIVE DIAGNOSIS: 1- Lumbar spondylosis with Facet Arthropathy without myelopathy . 2- Lumber degenerative disc disease. 3-lumbar spinal stenosis PROCEDURE: Diagnostic bilateral L3 , L4 , and L5 medial branch block under fluoroscopy guidance(fluoroscopy images available in the radiology Department ) ( To target the facet joint between L4-5 , and L5-S1 ) #2 nd ANESTHESIA: Monitored anesthesia care ( as per anesthesia department ) EBL: Minimal COMPLICATION: None PROCEDURE INDICATION: Chronic low back pain secondary to Facet arthropathy unresponsive to conservative treatment. PROCEDURE DESCRIPTION: the patient was seen and identified in the preop holding area , risks and benefits and possible complications of the procedure and alternative were discussed with the patient, and the patient agreed to proceed with the procedure and signed the consent and vital signs monitored during the procedure and fluoroscopy was used to maximize the benefit and accuracy of the needle placement, and sedation was given to decrease patient anxiety, patient was taken to the procedure room and placed in prone position vital signs monitored in the back prepped with chlorhexidine X3 then under strict sterile technique using a right oblique fluoroscopy ,the junction of the transverse process and the superior articulating process of the right L3 , L4 , and L5 vertebra which corresponding to the fluoroscopy image of the eye of the Epi dog on the block side for the medial branches and subsequently , after local infiltration of skin and subcu tissuies with Ropivacaine 0.5 % , one mL at each level ,then 22-gauge Quincke-type needles , 3 needle was used , each one of them placed at the junction of the base of the transverse process and the superior articular process at the appropriate level, and the needle was advanced until the periosteum contacted, needle placement confirmed with AP oblique and lateral view and after appropriate needle placement confirmed, and after negative aspiration for heme and CSF and there was no paresthesia 1-1/2 mL of Ropivacaine 0.5% mixed with 20 mg Depo-Medrol , then half mL injected at each level after negative aspiration the needle subsequently removed and the same procedure repeated for the left side at left side at L3 , L4 and L5 levels. At the end of the procedure and the needles removed and a bandage applied after the skin was cleaned the cleaning solution patient taken to recovery room in stable condition and monitors in the recovery room for 20-30 minutes and discharged home in stable condition after discharge criteria met and patient will follow up with the pain clinic in 2-4 weeks
[2020-07-28] MEDS ORDERED: IV FLUID CONTINUATION 1,000 ML IV ONE (10:09)
[2020-07-28] MEDS ORDERED: ONDANSETRON 4 MG/2 ML VIAL ONE (10:23)
[2020-07-28] MEDS ORDERED: ONDANSETRON 4 MG/2 ML VIAL IVP ONE (10:29)
[2020-07-28 10:35] VITALS: BP 118/63; PULSE 67; RESP 18
--- NOTE | 2020-07-28 11:49 | FL ---
Fluoroscopy HISTORY: Pain 8 seconds fluoroscopy time supplied to the referring clinician. 4 intraoperative C-arm images docume nt the procedure. See dictated report from anesthesia.
== END 2020-07-28 10:45 | disposition home or self-care (01) ==
LOC: ORPAIN 08:46
PROVIDERS: ATTEND Specialist
DX: G89.29 Other chronic pain (principal); M47.816 Spondylosis without myelopathy or radiculopathy, lumbar region; M51.36 Other intervertebral disc degeneration, lumbar region; M48.061 Spinal stenosis, lumbar region without neurogenic claudication; I25.10 Atherosclerotic heart disease of native coronary artery without angina pectoris; I10 Essential (primary) hypertension; Z79.02 Long term (current) use of antithrombotics/antiplatelets; Z90.710 Acquired absence of both cervix and uterus; Z97.2 Presence of dental prosthetic device (complete) (partial); Z95.5 Presence of coronary angioplasty implant and graft
CPT/HCPCS: 64493; 64494; J2250; J1030; J2405; J3010; J2795

== ENCOUNTER → 2020-08-16 | Outpatient (CLI) | payer MEDICARE ==
[2020-08-16 10:57] VITALS: BP 145/81; PULSE 77; RESP 16; TEMP 98
--- NOTE | 2020-08-16 11:11 | P.PN ---
Subjective Progress Note Date: 08/16/20 Audra is a very pleasant 84-year-old female who presents for follow-up after having 2 lumbar medial branch blocks. She reports excellent relief from the medial branch blocks. She reported that for the first few days she felt very well and the then the pain began to reappear over the next week or so. She has a lot of pain with ambulation. She finds that when she walks she has low back pain which is an aching and sometimes sharp pain across the waistline. She denies any radiation into her lower extremities. 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 She is also on Plavix due to a coronary stent which was placed in December 2019. She has an appointment with her brick pitcher in the next month to determine if he is able to stop the Plavix. Tone that is unlikely. It before 1 year. Indications that we have given her do help but the last very long. She is taking [place] 5 mg about 45 times a week. She is also using ibuprofen as needed. We discussed the use of ibuprofen along with antiplatelet therapy as this could increase the risk of bleeding. Review of Systems: Denies any New chest pain, short of breath, Nausea/vomitting, abdominal pain, bowel or bladder incontinence, or any overt new neurologic symptoms in his upper or lower extremities. Objective - Vital Signs Vital signs: Vital Signs Temp 98.0 F 08/16/20 10:55 Pulse 77 08/16/20 10:55 Resp 16 08/16/20 10:55 BP 145/81 08/16/20 10:55 Pulse Ox 98 08/16/20 10:55 - Exam General: Awake and alert oriented 3 no distress Respiratory exam: No audible wheezing no accessory muscle usage Cervical spine: Normal alignment, Spurling's negative, facet loading negative, Computer [employer] Analyst strength is 5/5, gamble negative Lumbar spine: Loss of lordosis, pain with flexion and extension. Lower extremity strength is 5 out of 5 bilaterally Neuro exam: Normal sensation in bilateral upper extremities, deep tendon reflexes are 2+ bilateral upper extremities. Normal sensation in bilateral lower extremities. 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 Unfortunate she is on antiplatelet therapy. We discussed this in detail with her and her daughter today. I'm okay with continue the medications Avonex 2 months until we are able to safely perform the radiofrequency ablation of the lumbar facet joint. They are happy with this plan at this time. They will follow up with the brick pitcher and determine if it is safe we will move forward. If not we'll see her back in 8 weeks for medication refill until one-year champ has commenced for the stenting of the coronary artery. I have spent 23 minutes on patient care today. The time was used to review the medical records including relevant urine studies and Prescription history (MAPs), review of the available imaging, evaluation and examination of the patient, coordination of care with the medical staff and if applicable referring physicians, as well as creation of the medical record. Maps were checked and appropriate, opioid start talking form is on file and updated, urine drug screens of been appropriate and have been reviewed.
== END ==
LOC: PNWHC3 10:31
PROVIDERS: ATTEND Hospitalist
DX: M47.816 Spondylosis without myelopathy or radiculopathy, lumbar region (principal); G62.0 Drug-induced polyneuropathy; F11.20 Opioid dependence, uncomplicated; I25.10 Atherosclerotic heart disease of native coronary artery without angina pectoris; T45.1X5A Adverse effect of antineoplastic and immunosuppressive drugs, initial encounter; Z95.5 Presence of coronary angioplasty implant and graft; Z79.02 Long term (current) use of antithrombotics/antiplatelets
CPT/HCPCS: 99211

== ENCOUNTER → 2020-09-01 | Outpatient (CLI) | payer MEDICARE | END | disposition home or self-care (01) | LOC: LABWHC1 16:08 | PROVIDERS: ATTEND Family Medicine | DX: J02.9 Acute pharyngitis, unspecified (principal); J34.89 Other specified disorders of nose and nasal sinuses | CPT/HCPCS: U0003; C9803; U0005 ==

== ENCOUNTER → 2020-10-11 | Outpatient (CLI) | payer MEDICARE ==
[2020-10-11 10:58] VITALS: BP 130/77; PULSE 77; RESP 18; TEMP 97.7
--- NOTE | 2020-10-11 15:27 | P.PN ---
Subjective Progress Note Date: 10/11/20 This is a 84 years old female with a chronic history of severe low back pain she is diagnosed with lumbar spondylosis with lumbar facet arthropathy, previously would have done diagnostic medial branch block lumbar area 2, she got excellent pain relief after each block and she will be scheduled to have RFA of the medial branch lumbar area, and currently on Plavix, and she had angioplasty done 10 months ago, and we are waiting for approval from the body care manager to hold the Plavix for one week before we proceed with the procedure (RFA medial branches ) Objective - Vital Signs Vital signs: Vital Signs Temp 97.7 F 10/11/20 10:54 Pulse 77 10/11/20 10:54 Resp 18 10/11/20 10:54 BP 130/77 10/11/20 10:54 Pulse Ox 99 10/11/20 10:54 - Exam Physical Examinations : -Constitutiona : Cooperative , not in acute distress . -HEENT : nech : supple , no Lymphadenopathy , normal thyroid size . : eyes : no ptosis , no icterus, no photophobia . - neurologic : Cranial nerve II to XII intact , no focal neurological deffecit . -psychatric : alert , oriented X 3 , appropriate affect , intact judgment and insight . -Lymphatic : no Lymphadenopathy . - musculoskeltal : Lumber spine moter stegnth lower extremities ,thigh and legs 5/5 Right side , 5/5 Left side deep tendon reflexes : normal Knee Jerk , normal ankle Jerk lumber facet Loading Test =positive Right , positive Left Assessment and Plan Plan: Assessment and plan=1-lumbar spondylosis with lumbar facet arthropathy without myelopathy Patient had a positive result after diagnostic medial branch block, and more than 80% improvement of her low back pain after each of block, it would be good candidate to have RFA of the medial branch lumbar area at L3, L4, L5 bilaterally, we need body care manager's approval before we can proceed because we have to hold Plavix for 1 week before the procedure - PQRS measures = - Patient's medications are documented in the chart. -Tobacco use is negative and counseling.Given. -Patient's has not received pneumococcal vaccine. -Advanced care planning discussed, patient not eligible. -Opiate contract signed. -Pain positive and follow-up visit/procedure is scheduled. -Patient's blood pressure measured [130/77 ] , and documented in the record ,and patient will follow up with the primary care. -Patient's weight was measured and body mass index [ ] above the normal limits and counseling was done. and patient instructed to follow-up with the primary care physician. -Patient was not identified as an unhealthy alcohol user Time with Patient: Less than 30
== END ==
LOC: PNWHC3 10:41
PROVIDERS: ATTEND Specialist
DX: M47.816 Spondylosis without myelopathy or radiculopathy, lumbar region (principal); Z88.0 Allergy status to penicillin; Z88.5 Allergy status to narcotic agent; Z88.1 Allergy status to other antibiotic agents; Z88.8 Allergy status to other drugs, medicaments and biological substances
CPT/HCPCS: 80307; G0482; G0463; 99211; 99212

== ENCOUNTER 2020-12-01 09:59 | Day surgery (SDC) | payer MEDICARE ==
[2020-12-01 10:22] VITALS: RESP 16; TEMP 97.3
[2020-12-01] MEDS ORDERED: LIDOCAINE 1% (10MG/ML) FOR IV START INTRADERMA ONE (10:25)
[2020-12-01] MEDS ORDERED: TRIAMCINOLONE ACETONIDE 40 MG/ML 1 ML VIAL ONE (10:42)
[2020-12-01] MEDS ORDERED: ROPIVACAINE 5MG/ML 20ML VIAL ONE (10:42)
[2020-12-01] MEDS ORDERED: LIDOCAINE 1% INJ 10MG/ML (20 ML MDV) ONE (10:42)
[2020-12-01] MEDS ORDERED: MIDAZOLAM 2 MG/2 ML VIAL ONE (10:44)
[2020-12-01] MEDS ORDERED: fentaNYL (PF) 50 MCG/ML 2 ML AMP ONE (10:44)
--- NOTE | 2020-12-01 11:15 | P.PCN ---
Date of Procedure: 12/01/20 Surgeon: Afshin Silva Pathology: none sent Condition: stable Disposition: PACU Description of Procedure: REOPERATIVE DIAGNOSIS: 1-Lumbar Spondylosis with Facet Arthropathy without myelopathy. 2- Lumber degenerative disc disease POSTOPERATIVE DIAGNOSIS: 1- Lumbar Spondylosis with Facet Arthropathy without myelopathy. 2- Lumber degenerative disc disease PROCEDURES : Bilateral Radiofrequency thermocoagulation, L3 , L4 , and L5 medial branch, with fluoroscopic guidance (fluoroscopy images available in the radiology department) ( to denervate the facet joint at L4-5 ,and L5-S1 levels ) ANESTHESIA: Moderate sedation with intravenous Versed and fentanyl by the anesthesia Department and lidocaine 1% for the skin. . EBL: Minimal PROCEDURE INDICATION: The patient with low back pain secondary to lumbar facet arthropathy who had more than 50% relief of her pain with previous diagnostic lumbar medial branch block with bupivacaine. PROCEDURE DESCRIPTION / TECHNIQUE: The patient was seen and identified in the preoperative area. Risks, benefits, complications, including but not limited to risk of infection ,bleeding , allergic reactions to the medications and no complete pain releife , and alternatives were discussed with the patient, the patient agreed to proceed with the procedure and signed the consent. IV was started. Vital signs remained stable throughout the procedure. Patient was taken to the OR and time out was completed. The patient was placed in the prone position on the procedure table. The lumber area was prepped and draped in the usual sterile fashion. . Vital signs were closely monitored during the procedure .IV sedation was used during the procedure to decrease patients anxiety. Using AP and then oblique fluoroscopy, the ``eye of the Epi dog corresponding to the connection between the superior and transverse articular processes of right L3, L4, and L5 were identified, marked, and localized with 1% lidocaine. Subsequently, a 18 guage 100-mm radiofrequency cannula with a 10-mm active tip was advanced guided by fluoroscopy to each of the``eyes of the Epi dog at right L3, L4, and L5. Each site then underwent sensory testing at 50 Hz and 0 to 1 volt and motor testing at 2.5 Hz and 0 to 3 volt with local stimulation, but no radicular symptoms down the legs. Thereafter each sites underwent radiofrequency thermocoagulation at 80 degrees celsius for 90 seconds after injecting 0.5 ml of PF Ropivacaine 1ml, then after the thermocoagulation done , 1 ml of the block solution containing Kenalog 40 mg and 3 ml of Ropivacaine 0.5% was injected at the right L3 , L4 , and L5 , levels after negative aspiration of CSF and blood and with no paresthesias. Cannulas were retracted while injecting lidocaine 1% until the needle is out. The same procedure was repeated at the level of Left L3, L4, and L5 levels. At the end of the procedure, the skin was cleansed and bandages were applied. COMPLICATIONS: No acute complications. DISPOSITION / PLANS: The patient was placed in a supine position and transferred to the recovery area in a stable condition for observation and was discharged from the recovery room after meeting discharge criteria. Home discharge instructions given to the patient by the staff. The patient was reexamined prior to discharge. The patient will schedule a follow up in the clinic in 2-4 weeks.
[2020-12-01 11:48] VITALS: BP 117/64; PULSE 61
[2020-12-01] MEDS ORDERED: IV FLUID CONTINUATION 1,000 ML IV ONE (11:49)
--- NOTE | 2020-12-01 13:16 | FL ---
EXAMINATION TYPE: FL guided pain mgmt statistic DATE OF EXAM: 12/01/2020 CLINICAL HISTORY: Radiofrequency TECHNIQUE: Fluoroscopy. COMPARISON: None. FINDINGS: Fluoroscopic guidance was provided during procedure performed by Dr. Silva. A total of 19 seconds of fluoroscopic time was utilized during the procedure and 4 spot images acquired. IMPRESSION: As Above.
== END 2020-12-01 11:58 | disposition home or self-care (01) ==
LOC: ORPAIN 09:59
PROVIDERS: ATTEND Anesthesiology
DX: M47.816 Spondylosis without myelopathy or radiculopathy, lumbar region (principal); M51.36 Other intervertebral disc degeneration, lumbar region; I25.10 Atherosclerotic heart disease of native coronary artery without angina pectoris; I10 Essential (primary) hypertension; E78.5 Hyperlipidemia, unspecified; G47.33 Obstructive sleep apnea (adult) (pediatric); F41.9 Anxiety disorder, unspecified; F32.9 Major depressive disorder, single episode, unspecified; K21.9 Gastro-esophageal reflux disease without esophagitis; E07.9 Disorder of thyroid, unspecified; Z79.899 Other long term (current) drug therapy; Z79.02 Long term (current) use of antithrombotics/antiplatelets
CPT/HCPCS: 64635; 64636; J2250; J3301; J2001; J3010; J2795

== ENCOUNTER → 2020-12-27 | Outpatient (CLI) | payer MEDICARE ==
[2020-12-27 12:27] VITALS: BP 116/70
[2020-12-27 12:30] VITALS: PULSE 77; RESP 18; TEMP 98
--- NOTE | 2020-12-27 12:48 | P.PN ---
Subjective Progress Note Date: 12/27/20 This is a follow-up visit for this 85 years old female with a chronic history of severe low back pain ,she is diagnosed with lumbar degenerative disc disease, spinal stenosis, and lumbar spondylosis with lumbar facet arthropathy, previousley we have done RFA medial branch block lumbar area at L3, L4, L5 bilaterally Patient reported that her pain improved, currently she is complaining of some low back pain with radiation to the right lower extremity, she had some numbness and tingling sensation, she denies any motor or sensory deficit, and she is here today , evaluation after the injection, she denies any side effect of the medication she denies any motor or sensory deficit, denies any change in the bowel movement or urination -Constitutiona : Cooperative , not in acute distress . -HEENT : nech : supple , no Lymphadenopathy , normal thyroid size . : eyes : no ptosis , no icterus, no photophobia . - neurologic : Cranial nerve II to XII intact , no focal neurological deffecit . -psychatric : alert , oriented X 3 , appropriate affect , intact judgment and insight . -Lymphatic : no Lymphadenopathy . - musculoskeltal : Lumber spine moter stegnth lower extremities ,thigh and legs 5/5 Right side , 5/5 Left side deep tendon reflexes : normal Knee Jerk , normal ankle Jerk lumber facet Loading Test =positive Right , posiutive Left Range of motion of the lumbar spine Flexion 30 degrees, extension 10 degrees strait leg raising test = positive at 30 degree Fabere test= positive Right , and positive LT . tenderness over the Sacroiliac joint on the Right , and Left sides Computed tomography scan of the lumbar spine reviewed that showed multilevel lumbar degenerative disc disease multilevel lumbar spondylosis, Severe spinal stenosis Assessment and plan=-lumbar spondylosis with lumbar facet arthropathy without myelopathy Lumbar degenerative disc disease Lumbar spinal stenosis. Lumbar radiculopathy Status post diagnostic medial branch block lumbar area at L3 ,L4 ,and L5 Patient could benefit from lumbar epidural steroid injection at L4 5 right paramedian approach Patient could benefit from Lyrica 25 mg twice a day dispense 60 with 1 refill Objective - Vital Signs Vital signs: Vital Signs Temp 98.0 F 12/27/20 12:23 Pulse 77 12/27/20 12:23 Resp 18 12/27/20 12:23 BP 116/70 12/27/20 12:23 Pulse Ox 95 12/27/20 12:23
== END | disposition home or self-care (01) ==
LOC: PNWHC3 12:01
PROVIDERS: ATTEND Specialist
DX: M47.896 Other spondylosis, lumbar region (principal); M51.36 Other intervertebral disc degeneration, lumbar region; M48.061 Spinal stenosis, lumbar region without neurogenic claudication; M54.16 Radiculopathy, lumbar region
CPT/HCPCS: 99211

== ENCOUNTER 2021-01-25 07:04 | Day surgery (SDC) | payer MEDICARE ==
[2021-01-24 12:23] VITALS: BMI 25.0
[2021-01-25 07:26] VITALS: TEMP 97.2
[2021-01-25] MEDS ORDERED: IOPAMIDOL M200 10 ML VIAL ONE (07:48)
[2021-01-25] MEDS ORDERED: fentaNYL (PF) 50 MCG/ML 2 ML AMP ONE (07:48)
[2021-01-25] MEDS ORDERED: methylPREDNISolone ACETATE 40 MG/ML 1 ML VIAL ONE (07:48)
[2021-01-25] MEDS ORDERED: MIDAZOLAM 2 MG/2 ML VIAL ONE (07:48)
--- NOTE | 2021-01-25 08:03 | P.PCN ---
Date of Procedure: 01/25/21 Procedure(s) Performed: PREOPERATIVE DIAGNOSIS: 1- Lumbar Degenerative Disc Diseases 2-Lumbar spondylosis with Facet arthropathy without myelopathy. 3-lumbar spinal stenosis. POSTOPERATIVE DIAGNOSIS: Same as preop diagnosis. PROCEDURE 1. Lumbar epidural steroid injection under fluoroscopic guidance at the L4-5 level. (Fluoroscopy imaging was available in radiology department) 2. Lumbar epidurogram. ANESTHESIA: Local with 1% lidocaine 3 ml and , moderate sedation with intravenous Versed 1 mg ,and fentanyle 50 Mcg EBL: Minimal PROCEDURE INDICATION: The patient with low back pain and radiculitis symptoms unresponsive to conservative treatment. Fluoroscopy was used to optimize visualization of the needle placement and to maximize safety. PROCEDURE DESCRIPTION / TECHNIQUE: The patient was seen and identified in the preoperative area. Risks, benefits, complications including but not limited to infections ,bleeding ,allergic reaction to the medications ,nerve damage and not complete pain releife , and alternatives were discussed with the patient. The patient agreed to proceed with the procedure and signed the consent. IV was started, and vital signs were stable. Patient was taken to the OR and time out was completed. The patient was placed in the prone position on procedure table and a pillow was placed under the abdomen to reduce lumbar lordosis. The lumbosacral area was prepped and draped in the usual sterile fashion.ere closely monitored during the procedure. Conscious sedation was used during the procedure to decrease patients anxiety. Vital signs was monitered during the entire procedure. Using anterior-posterior fluoroscopy, the L4-5 interlaminar space was identified and the skin over this site was marked and then infiltrated with 1% lidocaine subcutaneously. Subsequently, a 20-gauge Tuohy epidural needle was inserted and advanced toward the epidural space using the ``Loss of resistance technique and guided by AP and lateral fluoroscopy. The correct needle position in the epidural space was verified with the injection of 2 mL of the water soluble contrast dye Isovue 200 contrast and observing an excellent epidurogram with the epidural spread of the dye, after negative aspiration for blood and CSF and in the absence of paresthesias. Again after negative aspiration, a 6 ml mixture containing 40 mg of Depo-medrol , and 2 ml of preservative free Normal Saline, and 2 ml of preservative free lidocaine 1% solution was injected and a washout of epidurogram was seen. Needle was withdrawn intact, skin was cleansed, and bandages were applied. COMPLICATIONS: None DISPOSITION / PLANS: The patient was placed in a supine position and transferred to the recovery area in a stable condition for observation. There was no evidence of lower extremity motor or sensory deficit after the procedure. Patient was discharged from the recovery room after meeting discharge criteria. Home discharge instructions were given to the patient by the staff. The patient was reexamined prior to discharge. The patient will schedule a follow up in the clinic in 2-4 weeks.
[2021-01-25] MEDS ORDERED: IV FLUID CONTINUATION 1,000 ML IV ONE (08:05)
[2021-01-25 08:21] VITALS: BP 161/79; PULSE 64; RESP 16
--- NOTE | 2021-01-25 08:32 | FL ---
EXAMINATION TYPE: FL guided pain mgmt statistic DATE OF EXAM: 01/25/2021 HISTORY: Fluoroscopy time 2 seconds of fluoroscopy provided. IMPRESSION: 1. Fluoroscopy time.
== END 2021-01-25 08:45 | disposition home or self-care (01) ==
LOC: ORPAIN 07:04
PROVIDERS: ATTEND Specialist
DX: M51.36 Other intervertebral disc degeneration, lumbar region (principal); M47.816 Spondylosis without myelopathy or radiculopathy, lumbar region; M48.061 Spinal stenosis, lumbar region without neurogenic claudication
CPT/HCPCS: 62323; J2250; J1030; J3010; Q9966

== ENCOUNTER → 2021-02-21 | Outpatient (CLI) | payer MEDICARE ==
--- NOTE | 2021-02-21 13:30 | P.PN ---
Subjective Progress Note Date: 02/21/21 This is a follow-up visit for this 85 years old female with a chronic history of severe low back pain ,she is diagnosed with lumbar degenerative disc disease, spinal stenosis, and lumbar spondylosis with lumbar facet arthropathy, previousley we have done RFA medial branch block lumbar area , and recently we did lumbar epidural steroid injection at L4 5 ,Patient reported that her pain improved, currently she is complaining of some low back pain with radiation to the right lower extremity, she had some numbness and tingling sensation, she denies any motor or sensory deficit, and she is here today , evaluation after the injection, she denies any side effect of the medication she denies any motor or sensory deficit, denies any change in the bowel movement or urination -Constitutiona : Cooperative , not in acute distress . -HEENT : nech : supple , no Lymphadenopathy , normal thyroid size . : eyes : no ptosis , no icterus, no photophobia . - neurologic : Cranial nerve II to XII intact , no focal neurological deffecit . -psychatric : alert , oriented X 3 , appropriate affect , intact judgment and insight . -Lymphatic : no Lymphadenopathy . - musculoskeltal : Lumber spine moter stegnth lower extremities ,thigh and legs 5/5 Right side , 5/5 Left side deep tendon reflexes : normal Knee Jerk , normal ankle Jerk lumber facet Loading Test =positive Right , posiutive Left Range of motion of the lumbar spine Flexion 30 degrees, extension 10 degrees strait leg raising test = positive at 30 degree Fabere test= positive Right , and positive LT . tenderness over the Sacroiliac joint on the Right , and Left sides Computed tomography scan of the lumbar spine reviewed that showed multilevel lumbar degenerative disc disease multilevel lumbar spondylosis, Severe spinal stenosis Assessment and plan=-lumbar spondylosis with lumbar facet arthropathy without myelopathy Lumbar degenerative disc disease Lumbar spinal stenosis. Lumbar radiculopathy Status post diagnostic medial branch block lumbar area ,and Lumbar epidural steroid injections Patient could benefit from repeate lumbar epidural steroid injection at L4 5 right paramedian approach Patient could benefit from increase Lyrica 25 mg to 3 times a day, continue [place] 5/325 every 12 hours when necessary - PQRS measures = - Patient's medications are documented in the chart. -Tobacco use is negative . -Patient's has not received pneumococcal vaccine. -Advanced care planning discussed, patient not eligible. -Opiate contract signed. -Pain positive and follow-up visit/procedure is scheduled. -Patient's blood pressure measured [ 145/78 ] , and documented in the record ,and patient will follow up with the primary care. -Patient's weight was measured and body mass index [25 ] within the normal limits and counseling was done. and patient instructed to follow-up with the primary care physician. -Patient was not identified as an unhealthy alcohol user
[2021-02-21 14:06] VITALS: BP 145/78; PULSE 81; RESP 18; TEMP 97.9
== END | disposition home or self-care (01) ==
LOC: PNWHC3 12:51
PROVIDERS: ATTEND Specialist
DX: M48.061 Spinal stenosis, lumbar region without neurogenic claudication (principal); M47.896 Other spondylosis, lumbar region; M46.96 Unspecified inflammatory spondylopathy, lumbar region; M51.16 Intervertebral disc disorders with radiculopathy, lumbar region
CPT/HCPCS: 99211

== ENCOUNTER 2021-03-22 07:28 | Day surgery (SDC) | payer MEDICARE ==
[2021-03-21 12:37] VITALS: BMI 25.4
[2021-03-22 08:12] VITALS: RESP 16; TEMP 97.7
[2021-03-22] MEDS ORDERED: ONDANSETRON 4 MG/2 ML VIAL ONE (08:12)
[2021-03-22] MEDS ORDERED: LIDOCAINE 1% (10MG/ML) FOR IV START INTRADERMA ONE (08:18)
[2021-03-22] MEDS ORDERED: ROPIVACAINE 5MG/ML 20ML VIAL ONE (08:38)
[2021-03-22] MEDS ORDERED: MIDAZOLAM 2 MG/2 ML VIAL ONE (08:38)
[2021-03-22] MEDS ORDERED: IOPAMIDOL M200 10 ML VIAL ONE (08:38)
[2021-03-22] MEDS ORDERED: TRIAMCINOLONE ACETONIDE 40 MG/ML 1 ML VIAL ONE (08:38)
--- NOTE | 2021-03-22 08:53 | P.PCN ---
Date of Procedure: 03/22/21 Surgeon: Afshin Silva Pathology: none sent Condition: stable Disposition: PACU Description of Procedure: PREOPERATIVE DIAGNOSIS: 1-Lumbar radiculopathy 2- Lumber Degenerative Disc Diseases. POSTOPERATIVE DIAGNOSIS: 1-Lumbar radiculopathy. 2-Lumbar Degenerative Disc Diseases PROCEDURE 1. Lumbar epidural steroid injection under fluoroscopic guidance at the L4-5 level. 2. Lumbar epidurogram. ANESTHESIA: Local with 1% lidocaine; and IV moderate conscious sedation with Versed and fentanyl EBL: Minimal PROCEDURE INDICATION: The patient with low back pain and radiculitis symptoms unresponsive to conservative treatment. Fluoroscopy was used to optimize visualization of the needle placement and to maximize safety. PROCEDURE DESCRIPTION / TECHNIQUE: The patient was seen and identified in the preoperative area. Risks, benefits, complications including but not limited to infections ,bleeding ,allergic reaction to the medications ,nerve damage and not complete pain relief , and alternatives were discussed with the patient. The patient agreed to proceed with the procedure and signed the consent. IV was started, and vital signs were stable. Patient was taken to the OR and time out was completed. The patient was placed in the prone position on procedure table and a pillow was placed under the abdomen to reduce lumbar lordosis. The lumbosacral area was prepped and draped in the usual sterile fashion with ChloraPrep.Patient was closely monitored during the procedure. Conscious sedation was used during the procedure to decrease patients anxiety. Vital signs were monitered during the entire procedure. Using anterior-posterior fluoroscopy, the L4-5 interlaminar space was identified and the skin over this site was marked and then infiltrated with 1% lidocaine subcutaneously. Subsequently, a 20-gauge Tuohy epidural needle was inserted and advanced toward the epidural space using the Loss of resistance to air technique and guided by AP and lateral fluoroscopy. The correct needle position in the epidural space was verified with the injection of 1 mL of the water soluble contrast dye Omnipaque 180 contrast and observing an excellent epidurogram with the epidural spread of the dye, after negative aspiration for blood and CSF and in the absence of paresthesias. Again after negative aspiration, a 7 ml mixture containing 40 mg of Kenalog and 5 ml of preservative free Normal Saline, and 2 ml of preservative free ropivacaine 0.5% solution was injected and a washout of epidurogram was seen. Needle was withdrawn intact, skin was cleansed, and bandages were applied. patient tolerated procedure well and was transferred to PACU in stable condition.A copy of the needle placement picture was saved to the fluoroscopy machine. COMPLICATIONS: None DISPOSITION / PLANS: The patient was placed in a supine position and transferred to the recovery area in a stable condition for observation. There was no evidence of lower extremity motor or sensory deficit after the procedure. Patient was discharged from the recovery room after meeting discharge criteria. Home discharge instructions were given to the patient by the staff. The patient was reexamined prior to discharge. The patient will schedule a follow up in the clinic in 2-4 weeks.
[2021-03-22] MEDS ORDERED: IV FLUID CONTINUATION 1,000 ML IV ONE (08:55)
[2021-03-22 09:09] VITALS: BP 120/60; PULSE 62
--- NOTE | 2021-03-22 09:24 | FL ---
EXAMINATION TYPE: FL guided pain mgmt statistic DATE OF EXAM: 03/22/2021 HISTORY: Fluoroscopy time 4 seconds of fluoroscopy provided. IMPRESSION: 1. Fluoroscopy time.
== END 2021-03-22 09:24 | disposition home or self-care (01) ==
LOC: ORPAIN 07:28
PROVIDERS: ATTEND Anesthesiology
DX: M51.16 Intervertebral disc disorders with radiculopathy, lumbar region (principal)
CPT/HCPCS: 62323; J2250; J3301; J2405; Q9966; J2795

== ENCOUNTER → 2021-04-18 | Outpatient (CLI) | payer MEDICARE ==
[2021-04-18 13:16] VITALS: BP 126/64; PULSE 74; RESP 18; TEMP 97.8
--- NOTE | 2021-04-18 19:14 | P.PN ---
Subjective Progress Note Date: 04/18/21 This is a follow-up visit for this 85 years old female with a chronic history of severe low back pain ,she is diagnosed with lumbar degenerative disc disease, spinal stenosis, and lumbar spondylosis with lumbar facet arthropathy, previousley we have done RFA medial branch block lumbar area , and lumbar epidural steroid injection at L4 5 ,Patient reported that her pain improved, currently she is complaining of some low back pain , she had some numbness and tingling sensation, she denies any motor or sensory deficit, she is currently on Lyrica 25 mg 3 times a day and [place] 5/325 every 12 hours when necessary and Tylenol when necessary, she denies any side effect of the medication she denies any motor or sensory deficit, denies any change in the bowel movement or urination Physical examination -Constitutiona : Cooperative , not in acute distress . -HEENT : nech : supple , no Lymphadenopathy , normal thyroid size . : eyes : no ptosis , no icterus, no photophobia . - neurologic : Cranial nerve II to XII intact , no focal neurological deffecit . -psychatric : alert , oriented X 3 , appropriate affect , intact judgment and insight . -Lymphatic : no Lymphadenopathy . - musculoskeltal : Lumber spine moter stegnth lower extremities ,thigh and legs 5/5 Right side , 5/5 Left side deep tendon reflexes : normal Knee Jerk , normal ankle Jerk lumber facet Loading Test =positive Right , posiutive Left Range of motion of the lumbar spine Flexion 30 degrees, extension 10 degrees strait leg raising test = positive at 30 degree Fabere test= positive Right , and positive LT . tenderness over the Sacroiliac joint on the Right , and Left sides Computed tomography scan of the lumbar spine reviewed that showed multilevel lumbar degenerative disc disease multilevel lumbar spondylosis, Severe spinal stenosis Assessment and plan=-lumbar spondylosis with lumbar facet arthropathy without myelopathy Lumbar degenerative disc disease Lumbar spinal stenosis. Lumbar radiculopathy Sacroiliitis Status post RFA medial branch block lumbar area ,and Lumbar epidural steroid injections Patient could benefit from repeate lumbar epidural steroid injection at L4 5 Patient could benefit from increase Lyrica 25 mg to 3 times a day, continue [place] 5/325 every 12 hours when necessary Patient could benefit from Lidoderm patch 5% to be applied to the lumbar area 12 hours on 12 hours off - PQRS measures = - Patient's medications are documented in the chart. -Tobacco use is negative . -Patient's has not received pneumococcal vaccine. -Advanced care planning discussed, patient not eligible. -Opiate contract signed. -Pain positive and follow-up visit/procedure is scheduled. -Patient's blood pressure measured [ 126/64 ] , and documented in the record ,and patient will follow up with the primary care. -Patient's weight was measured and body mass index [25 ] within the normal limits and counseling was done. and patient instructed to follow-up with the primary care physician. -Patient was not identified as an unhealthy alcohol user Objective - Vital Signs Vital signs: Vital Signs Temp 97.8 F 04/18/21 13:09 Pulse 74 04/18/21 13:09 Resp 18 04/18/21 13:09 BP 126/64 04/18/21 13:09 Pulse Ox
== END | disposition home or self-care (01) ==
LOC: PNWHC3 12:56
PROVIDERS: ATTEND Specialist
DX: M47.896 Other spondylosis, lumbar region (principal); M51.36 Other intervertebral disc degeneration, lumbar region; M48.061 Spinal stenosis, lumbar region without neurogenic claudication; M46.1 Sacroiliitis, not elsewhere classified
CPT/HCPCS: 99211

== ENCOUNTER 2021-05-14 10:22 | Emergency (ER) | payer MEDICARE ==
[2021-05-14 10:28] VITALS: RESP 18; TEMP 97.2
[2021-05-14] MEDS ORDERED: DIPH,PERTUS(ACELL)TETVAC-LF 0.5 ML VIAL IM ONE (10:56)
--- NOTE | 2021-05-14 10:59 | ED ---
General Adult HPI - General Chief complaint: Fall Stated complaint: fall, head injury Time Seen by Provider: 05/14/21 10:39 Source: patient, family, RN notes reviewed Mode of arrival: wheelchair Limitations: no limitations - History of Present Illness Initial comments: Patient is a pleasant 85-year-old female presenting to the emergency department following a fall. Incident occurred this morning around 2 hours ago. Patient felt as after getting out of bed. Patient fell backwards. Patient does have moderate discomfort of her head and neck. No other area of injury. No loss of consciousness. No blood thinners. Patient does take a baby aspirin. No chest or back pain. No abdominal pain or hip injury. Patient was able to ambulate to the car to come to the emergency Department. No confusion. - Related Data Home Medications Medication Instructions Recorded Confirmed Losartan/Hydrochlorothiazide 1 tab PO QAM 01/03/15 04/17/21 [Losartan-Hctz 100-25 mg Tab] Aspirin [Adult Low Dose Aspirin EC] 81 mg PO QAM 09/22/17 04/17/21 Metoprolol Tartrate [Lopressor] 25 mg PO QAM 09/22/17 04/17/21 Carbidopa-Levodopa ER 50-200Mg 1 tab PO BID 12/16/19 04/17/21 [Sinemet CR 50-200 mg] DULoxetine HCL [Cymbalta] 60 mg PO QAM 12/16/19 04/17/21 Levothyroxine Sodium 100 mcg PO QAM 12/16/19 04/17/21 amLODIPine BESYLATE [Norvasc] 2.5 mg PO HS 12/16/19 04/17/21 Atorvastatin [Lipitor] 40 mg PO HS 12/22/19 04/17/21 ALPRAZolam [Xanax] 1 mg PO BID PRN 01/18/20 04/17/21 Ibuprofen 200 - 800 mg PO Q8H PRN 06/05/20 04/17/21 Acetaminophen [Tylenol 8 Hour] 650 mg PO Q8H PRN 04/17/21 04/17/21 Previous Rx's Medication Instructions Recorded HYDROcodone/APAP 5-325MG [[place] 1 tab PO Q12HR PRN 30 Days #60 tab 04/18/21 5-325] HYDROcodone/APAP 5-325MG [[place] 1 tab PO Q12HR PRN 30 Days #60 tab 04/18/21 5-325] Lidocaine 5% Patch [Lidoderm] 1 patch TOPICAL DAILY 30 Days #30 04/18/21 patch Pregabalin [Lyrica] 25 mg PO TID 30 Days #90 cap 04/18/21 Allergies Allergy/AdvReac Type Severity Reaction Status Date / Time cephalexin monohydrate Allergy Unknown Verified 05/14/21 10:28 [From Keflex] Childhood morphine Allergy Itching Verified 05/14/21 10:28 nitrofurantoin Allergy BLISTERS Verified 05/14/21 10:28 [From Macrobid] IN MOUTH AND ORAL THRUSH Penicillins Allergy Rash/Hives Verified 05/14/21 10:28 tramadol Allergy Rash/Hives Verified 05/14/21 10:28 amlodipine besylate AdvReac Intermediate tremors Verified 05/14/21 10:28 [From Norvasc] neomycin AdvReac exacerbates Verified 05/14/21 10:28 whatever skin condition using for Review of Systems ROS Statement: Those systems with pertinent positive or pertinent negative responses have been documented in the HPI. ROS Other: All systems not noted in ROS Statement are negative. Constitutional: Denies: fever Eyes: Denies: eye pain ENT: Denies: ear pain Respiratory: Denies: cough Cardiovascular: Denies: chest pain Endocrine: Denies: fatigue Gastrointestinal: Denies: abdominal pain Genitourinary: Denies: dysuria Musculoskeletal: Denies: back pain Skin: Denies: rash Neurological: Reports: as per HPI, headache Past Medical History Past Medical History: Coronary Artery Disease (CAD), Cancer, GERD/Reflux, Hype rlipidemia, Hypertension, Osteoarthritis (OA), Sleep Apnea/CPAP/BIPAP, Thyroid Disorder Additional Past Medical History / Comment(s): Back pain radiating mostly to right leg, SPLENOMEGALY W/ SPLENIC INFARCT due to Non-Hodgkins lymphoma in 04/2014/ finished chemo in September 2014, urinary incontinence, frequent UTI's, neuropathy in bilateral hands and feet. History of Any Multi-Drug Resistant Organisms: None Reported Past Surgical History: Appendectomy, Cholecystectomy, Heart Catheterization, Heart Catheterization With Stent, Hysterectomy, Orthopedic Surgery Additional Past Surgical History / Comment(s): 12/22/19 PCI with stent to LAD, partial thyroidectomy, mediport insertion/removal, bilateral carpal tunnel releases, PAIN CLINIC PROCEDURE. Past Anesthesia/Blood Transfusion Reactions: No Reported Reaction Date of Last Stent Placement:: 12/22/19 Past Psychological History: Anxiety, Depression Smoking Status: Never smoker - Past Family History Father Family Medical History: Cancer Additional Family Medical History / Comment(s): HEAVY SMOKER AND WAS A [employer], FROM LUNG CANCER. Mother Family Medical History: Diabetes Mellitus Brother(s) Family Medical History: Cancer Additional Family Medical History / Comment(s): Cerebral hemorrhage, Leukemia. Daughter(s) Family Medical History: Cancer Additional Family Medical History / Comment(s): Uterine Cancer. General Exam Limitations: no limitations General appearance: alert, in no apparent distress Head exam: Present: other (Posterior scalp laceration with mild tenderness in the region.) Eye exam: Present: normal appearance, PERRL, EOMI ENT exam: Present: normal oropharynx Neck exam: Present: normal inspection, tenderness (Mild C-spine tenderness) Respiratory exam: Present: normal lung sounds bilaterally Cardiovascular Exam: Present: regular rate, normal rhythm GI/Abdominal exam: Present: soft. Absent: tenderness Extremities exam: Present: normal inspection, full ROM. Absent: tenderness Back exam: Absent: tenderness, vertebral tenderness Neurological exam: Present: alert, oriented X3, CN II-XII intact. Absent: motor sensory deficit Expanded Neurological exam: Present: protecting the airway Speech: Present: fluid speech Cranial nerves: EOM's Intact: Normal Motor strength exam: RUE: 5, LUE: 5, RLE: 5, LLE: 5 Eye Response: (4) open spontaneously Motor Response: (6) obeys commands Verbal Response: (5) oriented Psychiatric exam: Present: normal affect, normal mood Skin exam: Present: other (Laceration of the posterior scalp) Course Vital Signs 05/14/21 10:23 Temperature 97.2 F L Pulse Rate 74 Respiratory 18 Rate Blood Pressure 147/78 O2 Sat by Pulse 97 Oximetry Procedures - Laceration Laceration #1 Consent Obtained: verbal consent Indication: laceration Site: scalp Size (cm): 5 Description: linear Depth: simple, single layer Pre-repair: wound explored, irrigated extensively Type of Sutures: other (leslie) Number of Sutures: 8 Technique: simple, interrupted Medical Decision Making - Medical Decision Making Patient reevaluated and updated. - Radiology Data Radiology results: report reviewed (Computed tomography scan of brain and cervical spine show no acute process) Disposition Clinical Impression: Fall, Head injury, Laceration of scalp Disposition: HOME SELF-CARE Condition: Stable Instructions (If sedation given, give patient instructions): Laceration (ED), Fall Prevention for Older Adults (ED), Head Injury (ED) Additional Instructions: Staple removal in 8-10 days. Keep area clean. Follow-up with primary care physician in the next couple days for recheck. Return for change in mental status, confusion, persistent vomiting, weakness or difficulty walking, worsening symptoms or other concerns. Is patient prescribed a controlled substance at d/c from ED?: No Referrals: Genevieve Alegre MD [Primary Care Provider] - 1-2 days Time of Disposition: 11:44
[2021-05-14] MEDS ORDERED: ACETAMINOPHEN TAB 500 MG TAB PO STA (11:23)
--- NOTE | 2021-05-14 11:32 | CT ---
EXAMINATION TYPE: CT brain loki araujo DATE OF EXAM: 05/14/2021 COMPARISON: 03/27/2016 HISTORY: Fall Unenhanced CT of the brain was performed. The ventricles, basal cisterns and sulci overlying the cerebral convexities demonstrate mild enlargem ent. There is no evidence for intracranial hemorrhage or sulcal effacement. There is decreased attenuatio n about the periventricular white matter and deep white matter of both cerebral hemispheres, compatib le with chronic small vessel ischemia. No mass effects are seen. If symptoms persist consider MRI. Osseous calvarium is intact. IMPRESSION: 1. Age related atrophic and chronic small vessel ischemic change without acute intracranial process seen at this time. CT Cervical Spine: Unenhanced CT of the cervical spine was performed with bone and soft tissue window settings submitted . Coronal and sagittal reconstruction is obtained. There is normal alignment and prevertebral soft tissues. No evidence for acute cervical fracture . Scattered degenerative disc disease and spondylosis. Biapical scarring. IMPRESSION: 1. No evidence for acute fracture or subluxation of the cervical spine.
[2021-05-14 12:09] VITALS: BP 118/75; PULSE 71
== END 2021-05-14 12:10 | disposition home or self-care (01) ==
LOC: EC 10:22
DX: S09.90XA Unspecified injury of head, initial encounter (principal); S01.01XA Laceration without foreign body of scalp, initial encounter; I10 Essential (primary) hypertension; K21.9 Gastro-esophageal reflux disease without esophagitis; E07.9 Disorder of thyroid, unspecified; E78.5 Hyperlipidemia, unspecified; M19.90 Unspecified osteoarthritis, unspecified site; I25.10 Atherosclerotic heart disease of native coronary artery without angina pectoris; Z88.8 Allergy status to other drugs, medicaments and biological substances; Z88.5 Allergy status to narcotic agent; Z88.0 Allergy status to penicillin; Z88.6 Allergy status to analgesic agent; Z88.1 Allergy status to other antibiotic agents; Z79.899 Other long term (current) drug therapy; Z23 Encounter for immunization; Z79.890 Hormone replacement therapy; Z79.82 Long term (current) use of aspirin; W06.XXXA Fall from bed, initial encounter; Y92.009 Unspecified place in unspecified non-institutional (private) residence as the place of occurrence of the external cause
CPT/HCPCS: 12002; 70450; 72125; 90471; 90715; 99284

== ENCOUNTER → 2021-07-16 | Outpatient (CLI) | payer MEDICARE ==
[2021-07-16 10:43] VITALS: BP 125/64; PULSE 73; RESP 18; TEMP 97.6
--- NOTE | 2021-07-16 10:51 | P.PN ---
Subjective Progress Note Date: 07/16/21 Principal diagnosis: A 85 yr old female with daughter at side with a history of severe and chronic low back pain secondary to lumbar degenerative disc diseases and lumbar spondylosis with facet arthropathy presents today for medication refills and evaluation status post LESI L4-L5. She experienced 50% pain relief for one day status post procedure. She admits to receiving multiple LESIs of the lumbar spine including bilateral RFA. Pain level is currently at 7 out of 10 in intensity, dull, achy in the lower aspect of the lumbar spine with accompanying pins and needles and sharp shooting left groin pain with accompanying numbness. Pain is provoked by bending and lifting. Pain is alleviated with medications, heat, physical therapy years ago, chiropractic treatments years ago, weekly home exercise regimen and rest. Patient is not interested in another procedure at this time. Discussed repeating imaging of the lumbar spine. Interventional pain procedures completed include multiple LESIs and bilateral lumbar RFA Patient is currently on [place] 5/325 #60 and Lyrica 25 #90 him this clinic. Tylenol and Motrin OTC. Patient denies any side effects of the medication(s), denies excessive drowsiness or sleepiness, denies suicidal ideation and reports that the current pain medication is helping to control the pain and improve activities of daily living. Patient denies any motor or sensory deficits. Patient denies any fever or night sweats, denies any change in the bowel movements or urination. Physical Examination: -Constitutional: Cooperative. Not in acute distress . -HEENT: Neck is supple. No lymphadenopathy. No thyromegaly. Normal thyroid size. Eyes: No ptosis , no icterus, no photophobia. ENT: No auditory deficits. Normal oropharynx. No Thrush. - Respiratory: Chest clear to auscultations bilaterally. No wheezing. No rhonchi. - Cardiovascular: Regular rate and rhythm. S1 / S2 , no S3 , no S4. - Gastrointestinal: Abdomen soft no tenderness. Bowel sounds positive in all f our quadrants. No organomegaly. - Genitourinary: Deferred. - Neurologic: Cranial nerve II to XII intact. No focal neurological deficits. - Psychatric: Alert & oriented x 3. Matching mood & appropriate affect. Judgment and insight intact. - Lymphatic: No Lymphadenopathy. - Musculoskeletal: Cervical spine: Muscle bulk/ tone/ strength in the bilateral upper extremities normal. Facet loading test cervical area positive. Lumbar spine: Motor bulk/ tone/ strength lower extremities , thigh and legs : 5/5 Deep tendon reflexes : Normal Knee Jerk. Normal Ankle Jerk . Vertebral body tenderness to palpation over L5 Lumbar Facet Loading Test positive left L5-S1 Straight Leg Raise: positive at 30 degrees right side/ left side Gaenslen's Test positive Sacral spine : Severe tenderness over the Sacroiliac joint: right side / left side Range of motion: Flexion of the lumbar spine <60 degrees Range of motion: Extension of the lumbar spine <20 degrees Gaenslen's Test positive Paty test: positive right side / left side Assessment and plan: Chronic low back pain secondary to lumbar degenerative disc disease , lumbar spondylosis with facet arthropathy without myelopathy MRI of the lumbar spine ordered Chronic and current use of high-risk medication (Opioids). The patient was counseled about risk of opioid use, psychological risk associated with opioids and was orally counseled to not overuse , divert or sell medications. Pt is to store medication in a safe location. The patient is counseled against driving while using narcotic medications and also not to use alcohol or any illicit recreational drugs. Patient verbalized understanding that the lack of compliance will result in failure to renew narcotic prescription(s) as well as possible discharge from the clinic Diagnoses, prognosis and treatment options including but not limited to physical therapy, surgical interventions, interventional therapies and medication management including narcotics and adjuvant medication were disc ussed. All patient questions answered MAPS reviewed and it was appropriate. UDS reviewed and it was consistent HEENT agreement up-to-date Prescription refill for [place] 5/325 #60 with 1 refill, Lyrica 25 mg #90 with 1 refill I have spent 31 minutes on patient care today. Dr Madden was available by phone for the evaluation of this patient. The time was used to review the medical records including relevant urine studies and Prescription history (MAPs), review of the available imaging, evaluation and examination of the patient, coordination of care with the medical staff and if applicable referring physicians, as well as creation of the medical record Objective - Vital Signs Vital signs: Vital Signs Temp 97.6 F 07/16/21 10:39 Pulse 73 07/16/21 10:39 Resp 18 07/16/21 10:39 BP 125/64 07/16/21 10:39 Pulse Ox 93 L 07/16/21 10:39 PQRS Measure Charge Sheet Mode of Arrival: Ambulatory - Pain Location Lower Back Non-Pharmacological Interventions: Chiropractic Treatment, Heat, Inactivity, Physical Therapy, Position/Reposition, Stretching Pharmacological Interventions: Block, Epidural, Medication, PRN Medication PQRS Narrative: Smoking Status Never smoker Narcotic Agreement Date Signed 07/18/20 Blood Pressure 125/64 Pain Intensity [Lower Back] 7 Scale Used Numeric (1 - 10) Hx Alcohol Use (MH) No Home Medications: Ambulatory Orders Losartan/Hydrochlorothiazide [Losartan-Hctz 100-25 mg Tab] 1 tab PO QAM 01/03/15 Aspirin [Adult Low Dose Aspirin EC] 81 mg PO QAM 09/22/17 Metoprolol Tartrate [Lopressor] 25 mg PO QAM 09/22/17 Carbidopa-Levodopa ER 50-200Mg [Sinemet CR 50-200 mg] 1 tab PO BID 12/16/19 DULoxetine HCL [Cymbalta] 60 mg PO QAM 12/16/19 Levothyroxine Sodium 100 mcg PO QAM 12/16/19 amLODIPine BESYLATE [Norvasc] 2.5 mg PO HS 12/16/19 Atorvastatin [Lipitor] 40 mg PO HS 12/22/19 ALPRAZolam [Xanax] 1 mg PO BID PRN 01/18/20 Ibuprofen 200 - 800 mg PO Q8H PRN 06/05/20 Acetaminophen [Tylenol 8 Hour] 650 mg PO Q8H PRN 04/17/21 Lidocaine 5% Patch [Lidoderm] 1 patch TOPICAL DAILY 30 Days #30 patch 04/18/21 HYDROcodone/APAP 5-325MG [[place] 5-325] 1 tab PO Q12HR PRN 30 Days #60 tab 07/16/21 HYDROcodone/APAP 5-325MG [[place] 5-325] 1 tab PO Q12HR PRN 30 Days #60 tab 07/16/21 Pregabalin [Lyrica] 25 mg PO TID 30 Days #90 cap 07/16/21
== END | disposition home or self-care (01) ==
LOC: PNWHC3 10:09
PROVIDERS: ATTEND Physician Assistant Medical
DX: M47.896 Other spondylosis, lumbar region (principal); M51.36 Other intervertebral disc degeneration, lumbar region
CPT/HCPCS: 99211

== ENCOUNTER → 2021-07-31 | Outpatient (CLI) | payer MEDICARE ==
--- NOTE | 2021-07-31 15:06 | MR ---
EXAMINATION TYPE: MR lumbar spine wo con DATE OF EXAM: 07/31/2021 COMPARISON: NONE HISTORY: LBP, LLE radiculopathy. TECHNIQUE: Multiplanar, multisequence imaging of the lumbar spine is performed without IV contrast. FINDINGS: Sagittal images of the lumbar spine show vertebral body heights to appear satisfactory. Sli ght grade 1 anterolisthesis L4 and L5. Multilevel disc desiccation and mild to moderate disc space na rrowing with relative sparing of L5-S1 level. Heterogeneous Modic type II endplate changes anterior T 11-T12 level. Zdle-ed-knxtvhtp multilevel anterior spurring. The conus medullaris is slightly low in position ending superior L2 level. No abnormal signal noted. Posterior disc herniations efface the a nterior thecal sac at T9-T10 through T11-T12 level sagittal image 9. Axial images at T12-L1 level shows mild broad-based disc bulge mildly effaces the anterior thecal sac . Axial images at L1-L2 level show abnormal signal posterior to the mid to lower left T12 vertebra effa cing the anterolateral thecal sac and lateral recess, this is curvilinear in appearance with low T1 a nd T2 signal could reflect disc extrusion but is slightly brighter on T2 weighted images versus adjac ent disc space. Ossific projection is in differential. Consider CT correlation to further evaluate. I nferior to this there is yfhy-zu-spswxttv broad disc bulge with prominent left first central/foramina l component effacing the anterolateral thecal sac. Patent bilateral neural foramina noted. Axial images at the L2-L3 level mild to moderate broad disc bulge along with mild to moderate facet a rthropathy and ligament flavum hypertrophy with some effacement of the anterior and posterior lateral thecal sac. There is right foraminal disc herniation component causing moderate right-sided neural f oraminal narrowing. There is mild left-sided neural foraminal narrowing. Axial images at the L3-L4 level shows moderate broad-based disc bulge with right lateral disc protrus ion. There is moderate facet arthropathy and ligamentum flavum hypertrophy. There is effacement of th e anterior and posterior lateral thecal sac. There is cmvy-jp-afxbsrue bilateral neural foraminal rolando rowing. Axial images at the L4-L5 level shows moderate to advanced facet arthropathy and ligamentum flavum hy pertrophy effacing the posterior lateral thecal sac. There is spondylolisthesis with mild broad-based posterior disc protrusion. There is mild right greater than left bilateral neural foraminal narrowin g. Axial images at L5-S1 level shows mild facet arthropathy. Spinal canal is preserved. Patent bilateral neural foramina. No suspicious retroperitoneal findings. IMPRESSION: Multilevel degenerative changes in the lumbar spine as detailed above. The lesion posteri or to the left L1 mid to lower lumbar vertebra of uncertain etiology and warrants follow-up.
== END | disposition home or self-care (01) ==
LOC: RADMRIMAIN 12:26
PROVIDERS: ATTEND Physician Assistant Medical
DX: S34.119A Complete lesion of unspecified level of lumbar spinal cord, initial encounter (principal); X58.XXXA Exposure to other specified factors, initial encounter
CPT/HCPCS: 72148

== ENCOUNTER → 2021-08-08 | Outpatient (CLI) | payer MEDICARE ==
[2021-08-08 13:33] VITALS: BP 157/84; PULSE 75; RESP 18; TEMP 97.9
--- NOTE | 2021-08-08 14:11 | P.PN ---
Subjective Progress Note Date: 08/08/21 Principal diagnosis: A 85 yr old female with daughter at side with a history of severe and chronic low back pain secondary to lumbar degenerative disc diseases and lumbar spondylosis with facet arthropathy presents today for evaluation of lower back pain and medication refills. Patient states she has been having lower back pain for the last 2 years that radiates left and right of midline with occasional numbness along the right groin. Pain level is 5 out of 10 in intensity, achy, pressure type sensation that escalates as high as 8 out of 10 in intensity with activity such as bending twisting and lifting. Pain is alleviated with medications, injections, application of heat, physical therapy which she is currently in, chiropractic treatments in the past which made it worse, daily home stretching regimen, use of a reclining chair, massage therapy and rest. MRI without contrast of the lumbar spine from 07/31/21 reviewed with pt. Patient is currently on [place] 5/325mg #60, Lyrica 25mg #90, Ibuprofen OTC, Tylenol OTC Patient denies any side effects of the medication(s), denies excessive drowsiness or sleepiness, denies suicidal ideation and reports that the current pain medication is helping to control the pain and improve activities of daily living. Patient denies any motor or sensory deficits. Patient denies any fever or night sweats, denies any change in the bowel movements or urination. Physical Examination: -Constitutional: Cooperative. Not in acute distress . -HEENT: Neck is supple. No lymphadenopathy. No thyromegaly. Normal thyroid size. Eyes: No ptosis , no icterus, no photophobia. ENT: No auditory deficits. Normal oropharynx. No Thrush. - Respiratory: Chest clear to auscultations bilaterally. No wheezing. No rhonchi. - Cardiovascular: Regular rate and rhythm. S1 / S2 , no S3 , no S4. - Gastrointestinal: Abdomen soft no tenderness. Bowel sounds positive in all four quadrants. No organomegaly. - Genitourinary: Deferred. - Neurologic: Cranial nerve II to XII intact. No focal neurological deficits. - Psychatric: Alert & oriented x 3. Matching mood & appropriate affect. Judgment and insight intact. - Lymphatic: No Lymphadenopathy. - Musculoskeletal: Cervical spine: Muscle bulk/ tone/ strength in the bilateral upper extremities normal. Facet loading test cervical area positive. Lumbar spine: Motor bulk/ tone/ strength lower extremities , thigh and legs : 5/5 Deep tendon reflexes : Normal Knee Jerk. Normal Ankle Jerk . Vertebral body tenderness to palpation over Lumbar Facet Loading Test positive Straight Leg Raise: positive at 30 degrees right side/ left side Gaenslen's Test positive Sacral spine : Severe tenderness over the Sacroiliac joint: right side / left side Range of motion: Flexion of the lumbar spine 60 degrees Range of motion: Extension of the lumbar spine 10 degrees Gaenslen's Test positive Paty test: positive right side > left side Assessment and plan: Chronic low back pain secondary to lumbar degenerative disc disease , lumbar spondylosis with facet arthropathy without myelopathy Recommendation of caudal MADHU with lysis. May need a series of MADHU, up to 3 within a six-month period, to obtain optimal pain relief. Risks, benefits of procedure discussed and patient verbalized understanding. Denies medical history of diabetes. Admits to ASA 81mg use. Protocol on discontinuation/ continuation of ASA bill- procedure discussed. Chronic and current use of high-risk medication (Opioids). The patient was counseled about risk of opioid use, psychological risk associated with opioids and was orally counseled to not overuse , divert or sell medications. Pt is to store medication in a safe location. The patient is counseled against driving while using narcotic medications and also not to use alcohol or any illicit recreational drugs. Patient verbalized understanding that the lack of compliance will result in failure to renew narcotic prescription(s) as well as possible discharge from the clinic Diagnoses, prognosis and treatment options including but not limited to physical therapy, surgical interventions, interventional therapies and medication management including narcotics and adjuvant medication were discussed. All patient questions answered MAPS reviewed and it was appropriate. Prescription refill for [place] 5/325mg #60 with refill, Lyrica 25mg #90 with refill. I have spent 31 minutes on patient care today. Dr Madden was available by phone for the evaluation of this patient. The time was used to review the medical records including relevant urine studies and Prescription history (MAPs), review of the available imaging, evaluation and examination of the patient, coordination of care with the medical staff and if applicable referring physicians, as well as creation of the medical record Objective - Vital Signs Vital signs: Vital Signs Temp 97.9 F 08/08/21 13:24 Pulse 75 08/08/21 13:24 Resp 18 08/08/21 13:24 BP 157/84 08/08/21 13:24 Pulse Ox 96 08/08/21 13:24 PQRS Measure Charge Sheet Mode of Arrival: Ambulatory - Pain Location Bilateral Lower Back Non-Pharmacological Interventions: Heat, Position/Reposition, Sitting, Stretching Pharmacological Interventions: Epidural, PRN Medication PQRS Narrative: Smoking Status Never smoker Narcotic Agreement Date Signed 07/18/20 Blood Pressure 157/84 Pain Intensity [Bilateral 5 Lower Back] Scale Used Numeric (1 - 10) Hx Alcohol Use (MH) No Home Medications: Ambulatory Orders Losartan/Hydrochlorothiazide [Losartan-Hctz 100-25 mg Tab] 1 tab PO QAM 01/03/15 Aspirin [Adult Low Dose Aspirin EC] 81 mg PO QAM 09/22/17 Metoprolol Tartrate [Lopressor] 25 mg PO QAM 09/22/17 Carbidopa-Levodopa ER 50-200Mg [Sinemet CR 50-200 mg] 1 tab PO BID 12/16/19 DULoxetine HCL [Cymbalta] 60 mg PO QAM 12/16/19 Levothyroxine Sodium 100 mcg PO QAM 12/16/19 amLODIPine BESYLATE [Norvasc] 2.5 mg PO HS 12/16/19 Atorvastatin [Lipitor] 40 mg PO HS 12/22/19 ALPRAZolam [Xanax] 1 mg PO BID PRN 01/18/20 Ibuprofen 200 - 800 mg PO Q8H PRN 06/05/20 Acetaminophen [Tylenol 8 Hour] 650 mg PO Q8H PRN 04/17/21 Lidocaine 5% Patch [Lidoderm] 1 patch TOPICAL DAILY 30 Days #30 patch 04/18/21 HYDROcodone/APAP 5-325MG [[place] 5-325] 1 tab PO Q12HR PRN 30 Days #60 tab 08/08/21 HYDROcodone/APAP 5-325MG [[place] 5-325] 1 tab PO Q12HR PRN 30 Days #60 tab 08/08/21 Pregabalin [Lyrica] 25 mg PO TID 30 Days #90 cap 08/08/21
== END | disposition home or self-care (01) ==
LOC: PNWHC3 12:50
PROVIDERS: ATTEND Specialist
DX: M47.896 Other spondylosis, lumbar region (principal); M51.36 Other intervertebral disc degeneration, lumbar region
CPT/HCPCS: 99211

== ENCOUNTER 2021-09-13 07:18 | Day surgery (SDC) | payer MEDICARE ==
[2021-09-12 08:59] VITALS: BMI 24.9
[2021-09-13 07:43] VITALS: TEMP 97.3
[2021-09-13] MEDS: LACTATED RINGERS 1,000 ML IV SCH ×2 (07:52→07:57)
[2021-09-13] MEDS ORDERED: MIDAZOLAM 2 MG/2 ML VIAL ONE (07:58)
[2021-09-13] MEDS ORDERED: methylPREDNISolone ACETATE 40 MG/ML 1 ML VIAL ONE (07:58)
[2021-09-13] MEDS ORDERED: IOPAMIDOL M200 10 ML VIAL ONE (07:58)
[2021-09-13] MEDS ORDERED: fentaNYL (PF) 50 MCG/ML 2 ML AMP ONE (07:58)
--- NOTE | 2021-09-13 08:18 | P.PCN ---
Date of Procedure: 09/13/21 Description of Procedure: PREOPERATIVE DIAGNOSIS: Lumbar spondylosis, and lumbar degenerative disc disease and lumbar radiculopathy. POSTOPERATIVE DIAGNOSIS: Lumbar spondylosis, and lumbar degenerative disc disease, and lumbar radiculopathy. PROCEDURE: 1. Caudal epidural steroid injection under fluoroscopic guidance. 2. Caudal epidurogram. SURGEON: Laura Shelby ANESTHESIA: Local with 1% lidocaine; IV sedation : Versed 1 MG, and fentanyl 50 g EBL: None. Specimens removed: None Complications: None Fluoroscopic image: saved to electronic medical records PROCEDURE INDICATION: Patient had a history of lumbar postlaminectomy syndrome, failed with conservative therapy. pain radiating distally returns for caudal epidural steroid injection. PROCEDURE DESCRIPTION: The patient was seen and identified in the preoperative area. Risks, benefits, complications, and alternatives were discussed with the patient. The patient agreed to proceed with the procedure and signed the consent. IV was started, and vital signs were stable. Patient was taken to the OR and time out was completed. The patient was placed in the prone position on procedure table and a pillow was placed under the abdomen to reduce lumbar lordosis. The lumbosacral area was prepped and draped in the usual sterile fashion. Critical pause was taken. Vital signs were closely monitored during the procedure. Using lateral fluoroscopy the anterior-posterior plates of the sacrum were identified and the skin and deeper tissues corresponding into sacrococcygeal ligament were anesthetized using approximately 3 mL of 1% lidocaine. Then under fluoroscopy, a 3-1/2-inch 22-gauge spinal needle was guided through the sacrococcygeal ligament, and into the epidural space. After negative aspiration, a 1 mL of Isovue contrast dye was injected with epidurogram. Again after negative aspiration for CSF, blood, and with no paresthesias, Depo-Medrol 40mg, with 10ml of preservative free normal saline(total of 11ml) solution was injected with washout of epidurogram. Needle was withdrawn intact. Skin was cleansed, and bandage was applied. DISPOSITION / PLANS: The patient was placed in a supine position and transferred to the recovery area in a stable condition for observation and was discharged from the recovery room after meeting discharge criteria. Home discharge instructions given to the patient by the staff. The patient was reexamined prior to discharge. The patient will schedule a follow up in the clinic in 4 weeks.
[2021-09-13] MEDS ORDERED: IV FLUID CONTINUATION 1,000 ML IV ONE (08:19)
[2021-09-13 08:20] VITALS: RESP 14
[2021-09-13 08:36] VITALS: BP 134/76; PULSE 63
--- NOTE | 2021-09-13 10:46 | FL ---
Fluoroscopy HISTORY: Pain 3 seconds fluoroscopy time supplied to the referring clinician. 2 intraoperative C-arm images docume nt the procedure. See dictated report from anesthesia.
== END 2021-09-13 08:49 | disposition home or self-care (01) ==
LOC: ORPAIN 07:18
DX: M51.16 Intervertebral disc disorders with radiculopathy, lumbar region (principal); M47.26 Other spondylosis with radiculopathy, lumbar region
CPT/HCPCS: 62264; J2250; J1030; J3010; Q9966; 99152

== ENCOUNTER → 2021-10-03 | Outpatient (CLI) | payer MEDICARE ==
--- NOTE | 2021-10-03 13:18 | P.PN ---
Subjective Progress Note Date: 10/03/21 Principal diagnosis: A 85 yr old female with daughter at side with a history of severe and chronic low back pain secondary to lumbar degenerative disc diseases and lumbar spondylosis with facet arthropathy presents today for evaluation status post caudal MADHU. She states she expressed 100% pain relief for 2 weeks then 80% pain relief status post procedure. Pain level is currently at 3 out of 10 in intensity, constant, achy in character with provocation of pain when standin g/walking for periods of 10 minutes or more. Pain is alleviated with medications, injections, heat, physical therapy of which she is currently in, physical therapy integrated with massage and traction, sitting, repositioning and laying supine. Interventional pain procedures completed include multiple LESI L4-L5, caudal MADHU 1 Patient is currently on [place] 5/325#60, Lyrica 25 mg #90 Patient denies any side effects of the medication(s), denies excessive drowsiness or sleepiness, denies suicidal ideation and reports that the current pain medication is helping to control the pain and improve activities of daily living. Patient denies any motor or sensory deficits. Patient denies any fever or night sweats, denies any change in the bowel movements or urination. Physical Examination: -Constitutional: Cooperative. Not in acute distress . -HEENT: Neck is supple. No lymphadenopathy. No thyromegaly. Normal thyroid size. Eyes: No ptosis , no icterus, no photophobia. ENT: No auditory deficits. Normal oropharynx. No Thrush. - Respiratory: Chest clear to auscultations bilaterally. No wheezing. No rhonchi. - Cardiovascular: Regular rate and rhythm. S1 / S2 , no S3 , no S4. - Gastrointestinal: Abdomen soft no tenderness. Bowel sounds positive in all four quadrants. No organomegaly. - Genitourinary: Deferred. - Neurologic: Cranial nerve II to XII intact. No focal neurological deficits. - Psychatric: Alert & oriented x 3. Matching mood & appropriate affect. Judgment and insight intact. - Lymphatic: No Lymphadenopathy. - Musculoskeletal: Cervical spine: Muscle bulk/ tone/ strength in the bilateral upper extremities normal. Vertebral body tenderness to palpation over Facet loading test cervical area positive. Lumbar spine: Motor bulk/ tone/ strength lower extremities , thigh and legs : 5/5 Deep tendon reflexes : Normal Knee Jerk. Normal Ankle Jerk . Vertebral body tenderness to palpation over Lumbar Facet Loading Test positive Straight Leg Raise: positive at 30 degrees right side/ left side Gaenslen's Test positive Sacral spine : Severe tenderness over the Sacroiliac joint: right side / left side Range of motion: Flexion of the lumbar spine <60 degrees Range of motion: Extension of the lumbar spine <20 degrees Gaenslen's Test positive Jevon's Test positive Paty test: positive right side / left side Assessment and plan: Chronic low back pain secondary to lumbar degenerative disc disease , lumbar spondylosis with facet arthropathy without myelopathy Chronic and current use of high-risk medication (Opioids). The patient was counseled about risk of opioid use, psychological risk associated with opioids and was orally counseled to not overuse , divert or sell medications. Pt is to store medication in a safe location. The patient is counseled against driving while using narcotic medications and also not to use alcohol or any illicit recreational drugs. Patient verbalized understanding that the lack of compliance will result in failure to renew narcotic prescription(s) as well as possible discharge from the clinic Diagnoses, prognosis and treatment options including but not limited to physical therapy, surgical interventions, interventional therapies and medication management including narcotics and adjuvant medication were discussed. All patient questions answered MAPS reviewed and it was appropriate. Urine for UDS collected today 10/03/21 Prescription refill for [place] 5/325#60 with 1 refill, Lyrica 25 mg #90 with 1 refill I have spent 31 minutes on patient care today. Dr Madden was available by phone for the evaluation of this patient. The time was used to review the medical records including relevant urine studies and Prescription history (MAPs), review of the available imaging, evaluation and examination of the patient, coordination of care with the medical staff and if applicable referring physicians, as well as creation of the medical record PQRS Measure Charge Sheet PQRS Narrative: Smoking Status Never smoker Narcotic Agreement Date Signed 07/18/20 Hx Alcohol Use (MH) No Home Medications: Ambulatory Orders Losartan/Hydrochlorothiazide [Losartan-Hctz 100-25 mg Tab] 1 tab PO QAM 01/03/15 Aspirin [Adult Low Dose Aspirin EC] 81 mg PO QAM 09/22/17 Metoprolol Tartrate [Lopressor] 25 mg PO QAM 09/22/17 Carbidopa-Levodopa ER 50-200Mg [Sinemet CR 50-200 mg] 1 tab PO BID 12/16/19 DULoxetine HCL [Cymbalta] 60 mg PO QAM 12/16/19 Levothyroxine Sodium 100 mcg PO QAM 12/16/19 amLODIPine BESYLATE [Norvasc] 2.5 mg PO HS 12/16/19 Atorvastatin [Lipitor] 40 mg PO HS 12/22/19 ALPRAZolam [Xanax] 1 mg PO BID PRN 01/18/20 Acetaminophen [Tylenol 8 Hour] 650 mg PO Q8H PRN 04/17/21 HYDROcodone/APAP 5-325MG [[place] 5-325] 1 tab PO Q12HR PRN 30 Days #60 tab 08/08/21 Cholecalciferol [Vitamin D3 (25 Mcg = 1000 Iu)] 50 mcg PO DAILY 09/12/21 Pregabalin [Lyrica] 25 mg PO DAILY 09/12/21 Vitamin B Complex W/ Vitamin C 1 tab PO DAILY 09/12/21
[2021-10-03 13:47] VITALS: BP 108/73; PULSE 81; RESP 18; TEMP 97.6
== END | disposition home or self-care (01) ==
LOC: PNWHC3 12:48
PROVIDERS: ATTEND Specialist
DX: M47.896 Other spondylosis, lumbar region (principal)
CPT/HCPCS: 80307; G0482; G0463; 99211; 99212

== ENCOUNTER → 2021-11-28 | Outpatient (CLI) | payer MEDICARE ==
[2021-11-28 13:23] VITALS: BP 145/87; PULSE 70; RESP 18; TEMP 98
--- NOTE | 2021-11-28 13:45 | P.PAINPG ---
Objective - Vital Signs Vital signs: Vital Signs Temp 98.0 F 11/28/21 13:13 Pulse 70 11/28/21 13:13 Resp 18 11/28/21 13:13 BP 145/87 11/28/21 13:13 Pulse Ox 97 11/28/21 13:13 FiO2 PQRS Measure Charge Sheet Mode of Arrival: Ambulatory Comment: A 86 yr old female with a history of severe and chronic low back pain secondary to lumbar degenerative disc diseases and lumbar spondylosis with facet arthropathy presents today for medication refills. She underwent Caudal MADHU in August 2021 with 100% pain relief x 5 weeks. Pain level is currently at 5-6/10 in intensity, intermittent, . Pain is dull/ achy/ sharp/ shooting towards . Pain is provoked by . Pain is alleviated with PT integrated with massage which she finished October 2021, medications (Lyrica, Tylenol OTC), topicals, heat, chiropractic treatments which worsened pain, repositioning and rest. Interventional pain procedures completed include Caudal MADHU Patient is currently on Lyrica, Tylenol OTC Patient denies any side effects of the medication(s), denies excessive drowsiness or sleepiness, denies suicidal ideation and reports that the current pain medication is helping to control the pain and improve activities of daily living. Patient denies any motor or sensory deficits. Patient denies any fever or night sweats, denies any change in the bowel movements or urination. Physical Examination: -Constitutional: Cooperative. Not in acute distress . - Neurologic: Cranial nerve II to XII intact. No focal neurological deficits. - Psychatric: Alert & oriented x 3. Matching mood & appropriate affect. Judgment and insight intact. - Musculoskeletal: Cervical spine: Muscle bulk/ tone/ strength in the bilateral upper extremities normal Vertebral body tenderness to palpation over Spurling test positive Distraction test positive Facet loading test positive Thoracic spine Muscle bulk / tone/ strength in the bilateral paraspinal muscles normal Vertebral body tender to palpation over Facet loading test positive Lumbar spine: Motor bulk/ tone/ strength lower extremities , thigh and legs : 5/5 Deep tendon reflexes : Normal Knee Jerk. Normal Ankle Jerk . Vertebral paraspinal tenderness to palpation over BL L3-S2 Lumbar Facet Loading Test positive Straight Leg Raise: positive at 30 degrees right side/ left side Gaenslen's Test positive Sacral spine : Severe tenderness over the Sacroiliac joint: right side / left side Range of motion: Flexion of the lumbar spine <60 degrees Range of motion: Extension of the lumbar spine <20 degrees Gaenslen's Test positive Jevon's Test positive Ptay test: positive right side / left side Thigh Thrust Test Sacral Thrust Test Assessment and plan: Chronic low back pain secondary to lumbar degenerative disc disease , lumbar spondylosis with facet arthropathy without myelopathy Recommendation of TPIs of BL L3-S2. May need a series of injections for optimal pain relief. Also discussed additional home pain mgmt modalities such as hot epsom salt baths, pulsating shower use, use of anti spasmotics, etc. Risks, benefits of procedure discussed and pt verbalized understanding. Denies anticoagulant use or medical history of diabetes. All patient questions answered I have spent less than 30 minutes on patient care today. Dr Madden was available by phone for the evaluation of this patient. The time was used to review the medical records including relevant urine studies and Prescription h istory (MAPs), review of the available imaging, evaluation and examination of the patient, coordination of care with the medical staff and if applicable referring physicians, as well as creation of the medical record - Pain Location Lower Back Non-Pharmacological Interventions: Chiropractic Treatment, Heat, Home Exercise, Inactivity, Massage, Physical Therapy, Stretching Pharmacological Interventions: Block, Epidural, PRN Medication, Scheduled Medication PQRS Narrative: Smoking Status Never smoker Narcotic Agreement Date Signed 07/18/20 Blood Pressure 145/87 Pain Intensity [Lower Back] 5 Scale Used Numeric (1 - 10) Hx Alcohol Use (MH) No Home Medications: Ambulatory Orders Losartan/Hydrochlorothiazide [Losartan-Hctz 100-25 mg Tab] 1 tab PO QAM 01/03/15 Aspirin [Adult Low Dose Aspirin EC] 81 mg PO QAM 09/22/17 Metoprolol Tartrate [Lopressor] 25 mg PO QAM 09/22/17 Carbidopa-Levodopa ER 50-200Mg [Sinemet CR 50-200 mg] 1 tab PO BID 12/16/19 DULoxetine HCL [Cymbalta] 60 mg PO QAM 12/16/19 Levothyroxine Sodium 100 mcg PO QAM 12/16/19 amLODIPine BESYLATE [Norvasc] 2.5 mg PO HS 12/16/19 Atorvastatin [Lipitor] 40 mg PO HS 12/22/19 ALPRAZolam [Xanax] 1 mg PO BID PRN 01/18/20 Acetaminophen [Tylenol 8 Hour] 650 mg PO Q8H PRN 04/17/21 Cholecalciferol [Vitamin D3 (25 Mcg = 1000 Iu)] 50 mcg PO DAILY 09/12/21 Vitamin B Complex W/ Vitamin C 1 tab PO DAILY 09/12/21 HYDROcodone/APAP 5-325MG [[place] 5-325] 1 tab PO Q12HR PRN 30 Days #60 tab 10/03/21 HYDROcodone/APAP 5-325MG [[place] 5-325] 1 tab PO Q12HR PRN 30 Days #60 tab Pregabalin [Lyrica] 25 mg PO Q8H 30 Days #90 cap 10/03/21 Controlled Substance Measures - Controlled Substance Measures Is patient prescribed a controlled substance at discharge?: No
== END ==
LOC: PNWHC3 12:56
PROVIDERS: ATTEND Specialist
DX: M51.36 Other intervertebral disc degeneration, lumbar region (principal); M47.816 Spondylosis without myelopathy or radiculopathy, lumbar region; G89.29 Other chronic pain; Z88.1 Allergy status to other antibiotic agents; Z88.5 Allergy status to narcotic agent; Z88.0 Allergy status to penicillin; Z88.6 Allergy status to analgesic agent
CPT/HCPCS: 99211